=== PATIENT | female | born 1980 | race Caucasian/White ===

== ENCOUNTER 2016-11-27 23:27 | Inpatient (IN) | payer OTHER ==
[~2016-11-27] VITALS: Ht 160 cm; Wt 53.7 kg
[2016-11-28] VITALS (12 sets, daily range): BP systolic 96–118; BP diastolic 45–67; PULSE 62–76; RESP 12–24; Ht 160 cm; Wt 53.7 kg
[2016-11-28 03:55] LABS: ADD UMIC NO; URINE BILIRUBIN (Dip) 2+ (NEGATIVE); URINE BLOOD (Dip) NEGATIVE (NEGATIVE); URINE COLOR DK. YELLOW (YELLOW); URINE GLUCOSE (Dip) NEGATIVE (NEGATIVE); URINE KETONES (Dip) TRACE (NEGATIVE); URINE LEUKOCYTE ESTERASE (Dip) NEGATIVE (NEGATIVE); URINE NITRITE (Dip) NEGATIVE (NEGATIVE); URINE TOTAL PROTEIN (Dip) NEGATIVE (NEGATIVE); URINE UROBILINOGEN (Dip) 4.0 E.U./dL (0.1-1.0)
[2016-11-28 03:59] LABS: ICTOTEST POSITIVE (NEGATIVE)
[2016-11-28 04:11] LABS: BENZODIAZEPINES Negative (NEGATIVE)
[2016-11-28 04:13] LABS: BARBITURATES Negative (NEGATIVE); CANNABINOIDS Negative (NEGATIVE)
[2016-11-28 04:14] LABS: COCAINE Negative (NEGATIVE)
[2016-11-28 04:22] LABS: OPIATES Positive (NEGATIVE)
[2016-11-28] MEDS ORDERED: PANTOPRAZOLE 40 MG INJ IV SCH (06:00)
[2016-11-28 06:48] LABS: HEMOGLOBIN 7.6 g/dl (12.0-16.0); MEAN CORPUSCULAR HEMOGLOBIN 32.7 pg (29.0-33.0); MEAN CORPUSCULAR HGB CONC 34.5 g/dl (32.0-37.0); MEAN CORPUSCULAR VOLUME 94.7 fl (82.0-101.0); MEAN PLATELET VOLUME 9.1 fl (7.4-10.4); PLATELET COUNT 111 10^3/UL (140-440); RED BLOOD COUNT 2.32 10^6/ul (4.20-5.40); RED CELL DISTRIBUTION WIDTH 26.7 % (11.5-14.5); UNCORRECTED WBC 6.1 10^3/ul (4.8-10.8); WHITE BLOOD COUNT 6.1 10^3/ul (4.8-10.8)
[2016-11-28 06:50] LABS: CONDITION 1; LH ANALYZER COMMENTS 1; SUSPECT 1
[2016-11-28 07:01] LABS: INR 1.65; PROTIME 19.6 Sec (12.2-14.2); PT RATIO 1.5
[2016-11-28 07:03] LABS: ALBUMIN 2.6 g/dl (3.3-4.9); CHLORIDE 111 mmol/L (97-110); PARTIAL THROMBOPLASTIN TIME 49.6 Sec (25.0-35.0); POTASSIUM 3.6 mmol/L (3.5-5.1); SODIUM 149 mmol/L (135-144)
[2016-11-28 07:05] LABS: BILIRUBIN,INDIRECT 0.8 mg/dl (0-1.1); BILIRUBIN,TOTAL 0.8 mg/dl (0.2-1.3); CREATININE 0.42 mg/dl (0.44-1.00)
[2016-11-28 07:06] LABS: ALANINE AMINOTRANSFERASE 40 IU/L (13-69); ALBUMIN/GLOBULIN RATIO 0.61; ALKALINE PHOSPHATASE 145 IU/L (42-121); ANION GAP 17 (8-16); ASPARTATE AMINO TRANSFERASE 181 IU/L (15-46); BLOOD UREA NITROGEN 5 mg/dl (7-20); CALCIUM 7.7 mg/dl (8.4-10.2); CARBON DIOXIDE 25 mmol/L (21-31); GLUCOSE 78 mg/dl (70-220); TOTAL PROTEIN 6.8 g/dl (6.1-8.1)
[2016-11-28 07:07] LABS: MAGNESIUM 1.6 mg/dl (1.7-2.5)
[2016-11-28] MEDS ORDERED: HYDROCODONE/APAP (5/325) TAB PO PRN (07:30)
[2016-11-28] MEDS: CHLORDIAZEPOXIDE 25 MG CAP PO SCH ×3 (08:25→20:39)
[2016-11-28] MEDS: DOCUSATE SODIUM 250 MG CAP PO SCH (08:25)
[2016-11-28] MEDS: MULTIVITAMINS 10 ML, THIAMINE 100 MG, FOLIC ACID 1 MG in SOD CHLORIDE 0.9% 1,000 ML IVPB SCH (08:25)
[2016-11-28] MEDS: PROPRANOLOL 10 MG TAB PO SCH ×3 (08:27→20:41)
[2016-11-28] MEDS: DEXTROSE 5%-0.45% NACL 1,000 ML IV SCH ×2 (08:30→16:30)
[2016-11-28 09:25] LABS: BASOPHIL # 0.1 10^3/ul (0.0-0.1); EOSINOPHILS # 0.2 10^3/ul (0.0-0.5); LYMPHOCYTES # 2.9 10^3/ul (0.8-2.9); MONOCYTE # 0.1 10^3/ul (0.3-0.9); NEUTROPHIL # 2.6 10^3/ul (1.6-7.5)
--- NOTE | 2016-11-28 10:23 | CONS ---
Date/Time of Note Date/Time of Note DATE: 11/28/16 TIME: 10:21 Assessment/Plan Assessment/Plan Additional Assessment/Plan Epigastric pain * Abdominal ultrasound History of esophageal varices * Order EGD medical records from [facility] Anemia * Monitor hemoglobin every 6 hours, transfuse 2 units for hemoglobin less than 7.5 * PPI drip * EGD with Dr. Salazar today in the afternoon. Patient advised of risk/benefits/ alternatives to procedure and she is agreeable to proceed Transaminitis * Elevated AST likely secondary to alcohol consent * Acute hepatitis panel negative History of alcohol abuse * Encourage abstinence Further recommendations depend on clinical course Patient seen in collaboration with Dr. Salazar Consultation Date/Type/Reason Admit Date/Time Nov 28, 2016 at 00:26 Reason for Consultation Hemoptysis Hx of Present Illness 36-year-old female patient was recently transferred from [facility] after she presented to the ED with complaints of abdominal pain and vomiting blood. Patient states symptoms have been present for 1 day and reports worsening epigastric abdominal pain. She denies fever, chills, and diarrhea Pt states that she had previous episode and was treated in [facility] in early October. Pt reports EGD with one cauterized varix. Pt reports being symptom free up until this point. Pt was discharged with unknown home medications that she continues to take and instructions to follow up with PCP. Pt reports drinking a few glasses of wine per week which is less than her previous daily intake. Past Medical History Medical History: no pertinent history Past Surgical History Past Surgical Hx: no surgical history Social History Alcohol Use: occasionally Smoking Status: Current some day smoker Exam/Review of Systems Vital Signs Vitals Vital Signs Date Time Temp Pulse Resp B/P Pulse Ox O2 Delivery O2 Flow Rate FiO2 11/28/16 07:54 98.5 78 16 96/55 97 Intake and Output 11/27/16 11/27/16 11/28/16 15:00 23:00 07:00 Output Total 50 ml Balance -50 ml Exam Constitutional: alert, oriented Psych: nl mood/affect Head: normocephalic Eyes: EOMI, nl conjunctiva, nl lids ENMT: nl external ears & nose, nl lips & teeth, nl nasal mucosa & septum Respiratory: normal air movement Cardiovascular: regular rate and rhythm Gastrointestinal: soft, tender (Epic) Musculoskeletal: nl extremities to inspection Neurological: POLICE CADET II-XII intact Results Result Diagram: 11/28/16 0530 11/28/16 0530 Results 24 hrs Laboratory Tests Test 11/28/16 02:20 11/28/16 05:30 Urine Amphetamines Screen Negative Urine Barbiturates Negative Urine Benzodiazepines Screen Negative Urine Bilirubin 2+ H Urine Cannabinoids Negative Urine Clarity CLEAR Urine Cocaine Screen Negative Urine Color DK. YELLOW Urine Glucose NEGATIVE Urine Hemoglobin NEGATIVE Urine Ictotest POSITIVE Urine Ketones TRACE H Urine Leukocyte Esterase NEGATIVE Urine Nitrite NEGATIVE Urine Opiates Screen Positive Urine Specific [place] >=1.030 H Urine Total Protein NEGATIVE Urine Urobilinogen 4.0 E.U./dL H Urine pH 5.5 Activated Partial Thromboplast Time 49.6 H Alanine Aminotransferase (ALT/SGPT) 40 Albumin 2.6 L Albumin/Globulin Ratio 0.61 Alkaline Phosphatase 145 H Anion Gap 17 H Aspartate Amino Transf (AST/SGOT) 181 H Basophils # 0.1 Basophils % 1.0 Blood Morphology Comment Blood Urea Nitrogen 5 L Calcium Level 7.7 L Carbon Dioxide Level 25 Chloride Level 111 H Creatinine 0.42 L Direct Bilirubin 0.00 Eosinophils # 0.2 Eosinophils % 3.0 Globulin 4.20 H Glucose Level 78 Hematocrit 22.0 #L Hemoglobin 7.6 L Hepatitis B Surface Antibody NEGATIVE Hepatitis B Surface Antigen NEGATIVE Hepatitis C Antibody NEGATIVE INR International Normalized Ratio 1.65 Indirect Bilirubin 0.8 Lipase 14 L Lymphocytes # 2.9 Lymphocytes % 47.0 Magnesium Level 1.6 L Mean Corpuscular Hemoglobin 32.7 Mean Corpuscular Hemoglobin Concent 34.5 Mean Corpuscular Volume 94.7 Mean Platelet Volume 9.1 Monocytes # 0.1 L Monocytes % 1.0 Neutrophils # 2.6 Neutrophils % 43.0 Nucleated Red Blood Cells # Nucleated Red Blood Cells % 0.0 Platelet Count 111 #L Potassium Level 3.6 Prothrombin Time 19.6 H Prothrombin Time Ratio 1.5 Red Blood Count 2.32 L Red Cell Distribution Width 26.7 #H Sodium Level 149 H Total Bilirubin 0.8 Total Protein 6.8 White Blood Count 6.1 # Medications Medications Current Medications Multivitamins/ Thiamine HCl/ Folic Acid/Sodium Chloride (Mvi-12 Adult/ Vitamin B1/Folic Acid/NS) 1,011.2 ml @ 125 mls/ hr DAILY@09 IVPB Last administered on 11/28/16 08:25; Admin Dose 125 MLS/HR; Start 11/28/16 at 09:00 Pantoprazole (Protonix Iv) 40 mg DAILY@06 IV Last administered on 11/28/16 06: 09; Admin Dose 40 MG; Start 11/28/16 at 06:00 Propranolol HCl (Inderal) 10 mg TID PO ; Start 11/28/16 at 09:00 Chlordiazepoxide (Librium) 25 mg TID PO Last administered on 11/28/16 08:25; Admin Dose 25 MG; Start 11/28/16 at 09:00 Morphine Sulfate (morphine) 2 mg Q4H PRN IV pain; Start 11/28/16 at 07:30 Acetaminophen/ Hydrocodone Bitart ([place] (5/325)) 1 tab Q6H PRN PO pain; Start 11/28/16 at 07:30 Docusate Sodium 250 mg 250 mg DAILY PO Last administered on 11/28/16 08:25; Admin Dose 250 MG; Start 11/28/16 at 09:00 Dextrose/Sodium Chloride (D5-1/2ns) 1,000 ml @ 125 mls/hr Q8H IV ; Start at 08:30 JAMESON CARCAMO Nov 28, 2016 10:22
--- NOTE | 2016-11-28 10:32 | HP ---
DATE OF ADMISSION: 11/28/2016 PRESENTING COMPLAINT: Vomiting with blood. HISTORY OF PRESENTING COMPLAINT: Ms. Lamb is a 36-year-old female, known alcoholic, who presents to us today after she had been drinking and she developed vomiting and had seen some blood in her vo nidia. She was also having epigastric abdominal pain. The patient was recently admitted at [facility] in October and underwent an EGD there, where it seems like they found some esophageal sharda ices that were clipped and cauterized and that she was scheduled for a followup outpatient appointme nt yesterday; however, she could not go to the appointment because she developed severe epigastric a bdominal pain and vomiting. She admits to drinking only a glass of wine. However, her serum alcoho l level was elevated. She went to the emergency room at [facility] where she was found to be mildly an emic and because of her history, decision was made to admit her for GI review and as she was capitat ed to this facility, she was transferred to us here. At this time she is more comfortable, and she s ays the pain is slightly better, but she is requesting medication for pain. She does not know if macho carroll had an ulcer on the evaluation done at [place]. We have requested records and they are still pe nding at this time. PAST MEDICAL HISTORY: Chronic alcohol abuse, history of pancreatitis as well as esophageal varices and a chronic megaloblastic anemia. PAST SURGICAL HISTORY: She has had a cholecystectomy and a x3. ALLERGIES: NO KNOWN DRUG ALLERGIES. SOCIAL HISTORY: The patient is a chronic alcoholic. She also smokes tobacco and marijuana. She is , however, trying to quit. REVIEW OF SYSTEMS: A 12-point review of system was done. She has had no fever, no chest pain and n o black stools. No dysuria, no hematuria. HOME MEDICATIONS: None. PHYSICAL EXAMINATION VITAL SIGNS: Temperature 99.1, pulse 101, respirations 18, blood pressure 105/55, saturations 95% o n room air. GENERAL: The patient was alert, oriented, in no distress. HEENT: Head is normocephalic. There was scleral jaundice. Pupils are equal and reactive. There w as mild conjunctival pallor. Mucous membranes are moist. Posterior pharynx is clear of exudate. NECK: Supple. CHEST: Clear with good air entry on both sides. CARDIOVASCULAR: S1 and 2, no murmurs. She was tachycardic, however. ABDOMEN: Full, but not tympanic and not severely ascitic, soft, mildly tender in the epigastric are a. Right upper quadrant was unremarkable with normoactive bowel sounds in 4 quadrants. EXTREMITIES: Lower extremity was negative for edema. SKIN: Without rash or jaundice. PSYCHIATRIC: She was cooperative with exam. LABORATORY VALUES: I reviewed lab work from [facility]. We do not have lab work here and alcohol level was elevated. Her lipid levels were normal she has mild anemia with hemoglobin of 8.4. We do not k now what her hemoglobin was when she was discharged from [facility]. ASSESSMENT: A 36-year-old female, known alcoholic, who presented with vomiting and 1 episode of fin ding blood in her vomit with the followin. Report an upper gastrointestinal bleed. 2. Known esophageal varices status post recent cautery and clipping. 3. Chronic alcoholism. 4. Chronic megaloblastic anemia. 5. Multi-substance abuse (alcohol, tobacco and marijuana). 6. Epigastric abdominal pain. Rule out alcoholic pancreatitis. 7. Transaminitis, which could be chronic from impending alcoholic cirrhosis versus an acute alcohol ic hepatitis. 8. Hyperbilirubinemia, consistent with alcoholic cirrhosis. PLAN OF CARE: At this time is to keep patient n.p.o., continue IV fluid hydration. Get a GI consult . Put her on IV PPI therapy. Obtain records from [facility]. Further interventions will depend on our findings and how she responds to this as well as GI recomme ndations. Prophylaxis: She will be on SCDs and PPI. Dictated By: CARTER CARBONE MD, BA/NTS Conf#: [id number] DID#: [id number]
[2016-11-28] MEDS ORDERED: SOD CHLORIDE 0.9% 250 ML IV* ONE (10:45)
[2016-11-28] MEDS ORDERED: PANTOPRAZOLE IV 80 MG in SOD CHLORIDE 0.9% 100 ML IV SCH (11:00)
[2016-11-28] MEDS: morphine 2 MG INJ IV PRN ×3 (12:23→20:40)
--- NOTE | 2016-11-28 16:54 | PN ---
Date/Time of Note Date/Time of Note DATE: 11/28/16 TIME: 16:48 Assessment/Plan VTE Prophylaxis VTE Prophylaxis Intervention: SCD's Lines/Catheters IV Catheter Type (from Nrsg): Peripheral IV Urinary Cath still in place: No Assessment/Plan Assessment/Plan 1. Upper GI bleeding, EGD today, on PPI 2. Epigastric pain, protonix, EGD 3. Alcoholic liver disease, liver cirrhosis 4. Esophageal varices, EGD 5. Normocytic anemia, GI bleeding and alcohol related, follow up with CBC 6. Thrombocytopenia, splenomegaly related 7. Hypomagnesemia, Mg Subjective 24 Hr Interval Summary Free Text/Dictation still has epigastric abdominal pain Exam/Review of Systems Vital Signs Vitals Vital Signs Date Time Temp Pulse Resp B/P Pulse Ox O2 Delivery O2 Flow Rate FiO2 11/28/16 07:54 98.5 78 16 96/55 97 Intake and Output 11/27/16 11/27/16 11/28/16 15:00 23:00 07:00 Output Total 50 ml Balance -50 ml Exam Constitutional: alert, oriented, well developed Psych: nl mood/affect, no complaints Head: atraumatic, normocephalic Eyes: EOMI, nl conjunctiva, nl lids ENMT: nl external ears & nose, nl lips & teeth, nl nasal mucosa & septum Neck: non-tender, supple Respiratory: clear to auscultation, normal air movement, other, No congested cough, No crackles/rales, No diminished breath sounds, No intercostal retraction, No labored breathing, No respirations, No tactile fremitus, No wheezing Cardiovascular: nl pulses, regular rate and rhythm, No S3, No S4, No bruits, No diastolic murmur, No edema, No gallop, No irregular rhythm, No jugular venous distention (JVD), No murmurs/extra sounds, No other, No rub, No systolic murmur Gastrointestinal: distended, soft, tender (epigastric) Musculoskeletal: nl extremities to inspection Neurological: MANAGER NIGHT II-XII intact, nl mental status, nl speech, nl strength Skin: nl turgor Results Result Diagram: 11/28/1630 11/28/16 0530 Results 24 hrs Laboratory Tests Test 11/28/16 02:20 11/28/16 05:30 Urine Amphetamines Screen Negative Urine Barbiturates Negative Urine Benzodiazepines Screen Negative Urine Bilirubin 2+ H Urine Cannabinoids Negative Urine Clarity CLEAR Urine Cocaine Screen Negative Urine Color DK. YELLOW Urine Glucose NEGATIVE Urine Hemoglobin NEGATIVE Urine Ictotest POSITIVE Urine Ketones TRACE H Urine Leukocyte Esterase NEGATIVE Urine Nitrite NEGATIVE Urine Opiates Screen Positive Urine Specific [place] >=1.030 H Urine Total Protein NEGATIVE Urine Urobilinogen 4.0 E.U./dL H Urine pH 5.5 Activated Partial Thromboplast Time 49.6 H Alanine Aminotransferase (ALT/SGPT) 40 Albumin 2.6 L Albumin/Globulin Ratio 0.61 Alkaline Phosphatase 145 H Anion Gap 17 H Aspartate Amino Transf (AST/SGOT) 181 H Basophils # 0.1 Basophils % 1.0 Blood Morphology Comment Blood Urea Nitrogen 5 L Calcium Level 7.7 L Carbon Dioxide Level 25 Chloride Level 111 H Creatinine 0.42 L Direct Bilirubin 0.00 Eosinophils # 0.2 Eosinophils % 3.0 Globulin 4.20 H Glucose Level 78 Hematocrit 22.0 #L Hemoglobin 7.6 L Hepatitis B Surface Antibody NEGATIVE Hepatitis B Surface Antigen NEGATIVE Hepatitis C Antibody NEGATIVE INR International Normalized Ratio 1.65 Indirect Bilirubin 0.8 Lipase 14 L Lymphocytes # 2.9 Lymphocytes % 47.0 Magnesium Level 1.6 L Mean Corpuscular Hemoglobin 32.7 Mean Corpuscular Hemoglobin Concent 34.5 Mean Corpuscular Volume 94.7 Mean Platelet Volume 9.1 Monocytes # 0.1 L Monocytes % 1.0 Neutrophils # 2.6 Neutrophils % 43.0 Nucleated Red Blood Cells # Nucleated Red Blood Cells % 0.0 Platelet Count 111 #L Potassium Level 3.6 Prothrombin Time 19.6 H Prothrombin Time Ratio 1.5 Red Blood Count 2.32 L Red Cell Distribution Width 26.7 #H Sodium Level 149 H Total Bilirubin 0.8 Total Protein 6.8 White Blood Count 6.1 # Medications Medications Current Medications Multivitamins/ Thiamine HCl/ Folic Acid/Sodium Chloride (Mvi-12 Adult/ Vitamin B1/Folic Acid/NS) 1,011.2 ml @ 125 mls/ hr DAILY@09 IVPB Last administered on 11/28/16 08:25; Admin Dose 125 MLS/HR; Start 11/28/16 at 09:00 Pantoprazole (Protonix Iv) 40 mg DAILY@06 IV Last administered on 11/28/16 06: 09; Admin Dose 40 MG; Start 11/28/16 at 06:00 Propranolol HCl (Inderal) 10 mg TID PO ; Start 11/28/16 at 09:00 Chlordiazepoxide (Librium) 25 mg TID PO Last administered on 11/28/16 12:22; Admin Dose 25 MG; Start 11/28/16 at 09:00 Morphine Sulfate (morphine) 2 mg Q4H PRN IV pain Last administered on 11/28/16 16:28; Admin Dose 2 MG; Start 11/28/16 at 07:30 Acetaminophen/ Hydrocodone Bitart ([place] (5/325)) 1 tab Q6H PRN PO pain; Start 11/28/16 at 07:30 Docusate Sodium 250 mg 250 mg DAILY PO Last administered on 11/28/16 08:25; Admin Dose 250 MG; Start 11/28/16 at 09:00 Dextrose/Sodium Chloride 1,000 ml @ 125 mls/hr Q8H IV ; Start 11/28/16 at 08:30 Pantoprazole/ Sodium Chloride (Protonix Iv/NS) 100 ml @ 10 mls/hr Q10H IV Last administered on 11/28/16 12:23; Admin Dose 10 MLS/HR; Start 11/28/16 at 11: 00 JAE DAS MD Nov 28, 2016 16:53
[2016-11-28] MEDS ORDERED: MIDAZOLAM 1 MG/ML 2 ML INJ ONE (17:50)
[2016-11-28] MEDS ORDERED: FENTAnyl 50 MCG/ML VIAL ONE (17:50)
[2016-11-28] MEDS ORDERED: PROPOFOL 20 ML ONE (17:50)
[2016-11-28] MEDS ORDERED: MAGNESIUM SULFATE 3 GM in SOD CHLORIDE 0.9% 100 ML IVPB SCH (18:30)
[2016-11-28] MEDS: METOCLOPRAMIDE 10 MG INJ IV SCH (18:54)
--- NOTE | 2016-11-28 22:03 | GILP ---
DATE OF PROCEDURE: 11/28/2016 NAME OF PROCEDURE: Esophagogastroduodenoscopy with biopsies. SURGEON: Juan Salazar MD HISTORY AND INDICATIONS: The patient with previous history of gastrointestinal bleeding described a s variceal in October. The patient is hospitalized with several episodes of coffee-ground emesis. PREMEDICATION: Monitored anesthesia care by anesthesiologist. INSTRUMENT USED: Olympus panendoscope. TECHNIQUE: After informed consent, with the patient/relatives understanding the procedure, its iona cations, potential risks and complications, including but not limited to: allergic reaction, bleedin g, perforation or infection, and after all pertinent questions were answered to the patients satisfa ction, the patient/relatives signed witnessed informed consent. Following this, premedication was administered slowly IV push under careful cardiovascular and respi ratory monitoring with pulse oximetry, automatic blood pressure and environmental monitoring specialist. Once the sedative effect was achieved the patient was place in the left lateral decubitus, the panen doscope was introduced and advanced under visual control. Careful examination of the upper gastrointestinal tract both on insertion as well as withdrawal of t he instrument disclosed the following findings: ESOPHAGUS: The distal esophagus shows small grade I/IV esophageal varices with no stigmata of recen t bleeding. The distal esophagus shows erythema and edema of the mucosa of a moderate degree. Again, no stigmata of recent bleeding is noted. STOMACH: Upon entrance to the stomach, air was insufflated. The gastric flor distended normally. There is erythema and edema of the mucosa with significant congestion and friability to the touch. Biopsies were obtained to rule out H. pylori infection. PYLORUS: The pylorus appears patent and within normal limits with no evidence of gastric outlet obs truction. DUODENUM: The duodenal mucosa was carefully examined in the duodenal bulb as well as the second por tion of the duodenum and appears unremarkable with no evidence of duodenitis, ulcer or neoplasm. The instrument was then withdrawn. The patient tolerated the procedure well and was transferred out of the endoscopy suite awake and in good condition to continue recovery under observation IMPRESSION: 1. Grade I/IV esophageal varices of no clinical significance. 2. Distal esophagitis, moderate. 3. Hemorrhagic alcoholic gastritis. Rule out Helicobacter pylori infection. Biopsies obtained. PLAN: The patient will be treated with PPI b.i.d. Pathology will be reviewed as soon as available. Abstinence will be critical to the patient's well-being. Dictated By: JUAN SALAZAR MS/OLINDA Conf#: [id number] DID#: [id number]
[2016-11-29] MEDS: METOCLOPRAMIDE 10 MG INJ IV SCH ×3 (00:10→12:06)
[2016-11-29] MEDS: DEXTROSE 5%-0.45% NACL 1,000 ML IV SCH ×2 (00:10→08:53)
[2016-11-29] MEDS: morphine 2 MG INJ IV PRN ×5 (01:01→17:51)
[2016-11-29] MEDS: DIPHENHYDRAMINE 25 MG CAP PO PRN ×2 (05:55→13:07)
[2016-11-29] MEDS ORDERED: PANTOPRAZOLE (EC) 40 MG TAB PO SCH (06:00)
[2016-11-29 06:35] LABS: POTASSIUM 3.7 mmol/L (3.5-5.1)
[2016-11-29 06:37] LABS: CREATININE 0.37 mg/dl (0.44-1.00)
[2016-11-29 06:38] LABS: CALCIUM 7.9 mg/dl (8.4-10.2)
[2016-11-29 06:39] LABS: MAGNESIUM 1.6 mg/dl (1.7-2.5)
[2016-11-29 07:02] LABS: ALBUMIN 2.5 g/dl (3.3-4.9); POTASSIUM 3.6 mmol/L (3.5-5.1)
[2016-11-29 07:04] LABS: CREATININE 0.38 mg/dl (0.44-1.00)
[2016-11-29 07:05] LABS: ALBUMIN/GLOBULIN RATIO 0.58; BILIRUBIN,DIRECT 0.3 mg/dl (0.00-0.20); BILIRUBIN,INDIRECT 2.1 mg/dl (0-1.1); BILIRUBIN,TOTAL 2.4 mg/dl (0.2-1.3); CALCIUM 7.8 mg/dl (8.4-10.2); TOTAL PROTEIN 6.8 g/dl (6.1-8.1)
[2016-11-29 07:13] LABS: HEMATOCRIT 24.5 % (37.0-47.0); HEMOGLOBIN 8.6 g/dl (12.0-16.0); MEAN CORPUSCULAR HEMOGLOBIN 33.3 pg (29.0-33.0); MEAN CORPUSCULAR HGB CONC 35.1 g/dl (32.0-37.0); MEAN CORPUSCULAR VOLUME 94.8 fl (82.0-101.0); MEAN PLATELET VOLUME 9.4 fl (7.4-10.4); PLATELET COUNT 82 10^3/UL (140-440); RED BLOOD COUNT 2.59 10^6/ul (4.20-5.40); RED CELL DISTRIBUTION WIDTH 23.8 % (11.5-14.5)
[2016-11-29 07:24] LABS: CONDITION 1; LH ANALYZER COMMENTS 1; SUSPECT 1
[2016-11-29 07:30] VITALS: BP 99/53; RESP 16
[2016-11-29] MEDS: CHLORDIAZEPOXIDE 25 MG CAP PO SCH ×2 (08:53→12:06)
[2016-11-29] MEDS: MULTIVITAMINS 10 ML, THIAMINE 100 MG, FOLIC ACID 1 MG in SOD CHLORIDE 0.9% 1,000 ML IVPB SCH (08:53)
[2016-11-29] MEDS: DOCUSATE SODIUM 250 MG CAP PO SCH (08:53)
[2016-11-29] MEDS: PROPRANOLOL 10 MG TAB PO SCH ×2 (08:53→12:03)
--- NOTE | 2016-11-29 08:57 | CONS ---
Date/Time of Note Date/Time of Note DATE: 11/29/16 TIME: 08:57 Assessment/Plan Assessment/Plan Chief Complaint/Hosp Course 36-year-old female patient was recently transferred from [facility] after she presented to the ED with complaints of abdominal pain and vomiting blood. Patient states symptoms have been present for 1 day and reports worsening epigastric abdominal pain. She denies fever, chills, and diarrhea Pt states that she had previous episode and was treated in [facility] in early October. Pt reports EGD with one cauterized varix. Pt reports being symptom free up until this point. Pt was discharged with unknown home medications that she continues to take and instructions to follow up with PCP. Pt reports drinking a few glasses of wine per week which is less than her previous daily intake. Problems: Additional Assessment/Plan Epigastric pain, improving History of esophageal varices * Order EGD medical records from [facility] Anemia * Monitor hemoglobin every 6 hours, transfuse 2 units for hemoglobin less than 7.5 * PPI drip * EGD 11-28-16: 1. Grade I/IV esophageal varices of no clinical significance. 2. Distal esophagitis, moderate. 3. Hemorrhagic alcoholic gastritis Transaminitis * Elevated AST likely secondary to alcohol consent * Acute hepatitis panel negative History of alcohol abuse * Encourage abstinence Further recommendations depend on clinical course Patient seen in collaboration with Dr. Salazar Consultation Date/Type/Reason Admit Date/Time Nov 28, 2016 at 00:26 Initial Consult Date Type of Consultation: GI 24 HR Interval Summary Free Text/Dictation Tolerating clear diet Advised patient of test results Advance diet to regular Patient stable from GI standpoint Exam/Review of Systems Vital Signs Vitals Vital Signs Date Time Temp Pulse Resp B/P Pulse Ox O2 Delivery O2 Flow Rate FiO2 11/29/16 07:30 98.8 82 16 99/53 95 11/28/16 18:47 Room Air Intake and Output 11/28/16 11/28/16 11/29/16 15:00 23:00 07:00 Intake Total 1000 ml 1467.2 ml Output Total 1000 ml 1200 ml Balance 0 ml 267.2 ml Exam Constitutional: alert, oriented Psych: nl mood/affect Head: normocephalic Eyes: EOMI, nl conjunctiva, nl lids ENMT: nl external ears & nose, nl lips & teeth, nl nasal mucosa & septum Respiratory: normal air movement Cardiovascular: regular rate and rhythm Gastrointestinal: soft, non tender Musculoskeletal: nl extremities to inspection Neurological: WELDER MANUFACTURE II-XII intact Results Result Diagram: 11/29/1620 11/29/16 0520 Results 24 hrs Laboratory Tests Test 11/29/16 05:20 Alanine Aminotransferase (ALT/SGPT) 35 Albumin 2.5 L Albumin/Globulin Ratio 0.58 Alkaline Phosphatase 122 H Anion Gap 14 Aspartate Amino Transf (AST/SGOT) 140 H Basophils # Basophils % Blood Morphology Comment Blood Urea Nitrogen 3 L Calcium Level 7.9 L Carbon Dioxide Level 23 Chloride Level 107 Creatinine 0.37 L Direct Bilirubin 0.30 #H Eosinophils # Eosinophils % Globulin 4.30 H Glucose Level 74 Hematocrit 24.5 L Hemoglobin 8.6 L Indirect Bilirubin 2.1 H Lymphocytes # Lymphocytes % Magnesium Level 1.6 L Mean Corpuscular Hemoglobin 33.3 H Mean Corpuscular Hemoglobin Concent 35.1 Mean Corpuscular Volume 94.8 Mean Platelet Volume 9.4 Monocytes # Monocytes % Neutrophils # Neutrophils % Nucleated Red Blood Cells # Nucleated Red Blood Cells % Platelet Count 82 #L Potassium Level 3.7 Red Blood Count 2.59 L Red Cell Distribution Width 23.8 H Sodium Level 140 Total Bilirubin 2.4 H Total Protein 6.8 White Blood Count 5.0 Medications Medications Current Medications Multivitamins/ Thiamine HCl/ Folic Acid/Sodium Chloride (Mvi-12 Adult/ Vitamin B1/Folic Acid/NS) 1,011.2 ml @ 125 mls/ hr DAILY@09 IVPB Last administered on 11/29/16 08:53; Admin Dose 125 MLS/HR; Start 11/28/16 at 09:00 Propranolol HCl (Inderal) 10 mg TID PO ; Start 11/28/16 at 09:00 Chlordiazepoxide (Librium) 25 mg TID PO Last administered on 11/29/16 08:53; Admin Dose 25 MG; Start 11/28/16 at 09:00 Morphine Sulfate (morphine) 2 mg Q4H PRN IV pain Last administered on 11/29/16 08:54; Admin Dose 2 MG; Start 11/28/16 at 07:30 Acetaminophen/ Hydrocodone Bitart ([place] (5/325)) 1 tab Q6H PRN PO pain; Start 11/28/16 at 07:30 Docusate Sodium 250 mg 250 mg DAILY PO Last administered on 11/29/16 08:53; Admin Dose 250 MG; Start 11/28/16 at 09:00 Dextrose/Sodium Chloride (D5-1/2ns) 1,000 ml @ 125 mls/hr Q8H IV Last administered on 11/29/16 08:53; Admin Dose 125 MLS/HR; Start 11/28/16 at 08:30 Pantoprazole (Protonix Tab) 40 mg BID@06,18 PO Last administered on 11/29/16 05 :55; Admin Dose 40 MG; Start 11/29/16 at 06:00 Metoclopramide HCl (Reglan) 10 mg Q6 IV Last administered on 11/29/16 05:55; Admin Dose 10 MG; Start 11/28/16 at 18:30 Diphenhydramine HCl (Benadryl) 25 mg Q6H PRN PO ITCHING Last administered on 05:55; Admin Dose 25 MG; Start 11/29/16 at 05:30 JAMESON CARCAMO Nov 29, 2016 08:57
[2016-11-29 10:44] LABS: EOSINOPHILS # 0.1 10^3/ul (0.0-0.5); LYMPHOCYTES # 1.5 10^3/ul (0.8-2.9); MONOCYTE # 0.2 10^3/ul (0.3-0.9); NEUTROPHIL # 3.1 10^3/ul (1.6-7.5)
[2016-11-29] MEDS ORDERED: PANT40TA3 PO (14:10)
[2016-11-29] MEDS ORDERED: FER325 PO (14:18)
--- NOTE | 2016-11-29 14:18 | DS ---
Date/Time of Note Date/Time of Note DATE: 11/29/16 TIME: 14:11 Discharge Summary Admission/Discharge Info Admit Date/Time Nov 28, 2016 at 00:26 Discharge Date/Time Final Diagnosis 1. Upper GI bleeding, from gastritis, protonix bid, follow up with Dr. Salazar 2. Alcoholic liver disease, liver cirrhosis, quit ETOH 3. Esophageal varices, EGD 4. Normocytic anemia, GI bleeding and alcohol related, iron supplement, follow up with PCP 6. Thrombocytopenia, splenomegaly related 7. Hypomagnesemia, Mg given Patient Condition: Stable Hospital Course 36-year-old female patient was recently transferred from [facility] after she presented to the ED with complaints of abdominal pain and vomiting blood. Patient states symptoms have been present for 1 day and reports worsening epigastric abdominal pain. She denies fever, chills, and diarrhea Pt states that she had previous episode and was treated in [facility] in early October. Pt reports EGD with one cauterized varix. Pt reports being symptom free up until this point. Pt was discharged with unknown home medications that she continues to take and instructions to follow up with PCP. Pt reports drinking a few glasses of wine per week which is less than her previous daily intake. EGD revealed esophagitis and gastritis, along with esophageal varices. Patient is advised to quit drinking alcohol and take double dosage of protonix. H/H were 7.6/22 on admission, and they are 8.6/24.5 today. Patient will be on iron supplement. G.I. LAB PROCEDURE DATE OF PROCEDURE: 11/28/2016 NAME OF PROCEDURE: Esophagogastroduodenoscopy with biopsies. SURGEON: Juan Salazar MD HISTORY AND INDICATIONS: The patient with previous history of gastrointestinal bleeding described as variceal in October. The patient is hospitalized with several episodes of coffee-ground emesis. PREMEDICATION: Monitored anesthesia care by anesthesiologist. INSTRUMENT USED: Olympus panendoscope. TECHNIQUE: After informed consent, with the patient/relatives understanding the procedure, its indications, potential risks and complications, including but not limited to: allergic reaction, bleeding, perforation or infection, and after all pertinent questions were answered to the patients satisfaction, the patient/relatives signed witnessed informed consent. Following this, premedication was administered slowly IV push under careful cardiovascular and respiratory monitoring with pulse oximetry, automatic blood pressure and laboratory monitor. Once the sedative effect was achieved the patient was place in the left lateral decubitus, the panendoscope was introduced and advanced under visual control. Careful examination of the upper gastrointestinal tract both on insertion as well as withdrawal of the instrument disclosed the following findings: ESOPHAGUS: The distal esophagus shows small grade I/IV esophageal varices with no stigmata of recent bleeding. The distal esophagus shows erythema and edema of the mucosa of a moderate degree. Again, no stigmata of recent bleeding is noted. STOMACH: Upon entrance to the stomach, air was insufflated. The gastric flor distended normally. There is erythema and edema of the mucosa with significant congestion and friability to the touch. Biopsies were obtained to rule out H. pylori infection. PYLORUS: The pylorus appears patent and within normal limits with no evidence of gastric outlet obstruction. DUODENUM: The duodenal mucosa was carefully examined in the duodenal bulb as well as the second portion of the duodenum and appears unremarkable with no evidence of duodenitis, ulcer or neoplasm. The instrument was then withdrawn. The patient tolerated the procedure well and was transferred out of the endoscopy suite awake and in good condition to continue recovery under observation IMPRESSION: 1. Grade I/IV esophageal varices of no clinical significance. 2. Distal esophagitis, moderate. 3. Hemorrhagic alcoholic gastritis. Rule out Helicobacter pylori infection. Biopsies obtained. PLAN: The patient will be treated with PPI b.i.d. Pathology will be reviewed as soon as available. Abstinence will be critical to the patient's well-being. Dictated By: JUAN SALAZAR MS/OLINDA Conf#: [id number] DID#: [id number] Home Meds Active Scripts Pantoprazole* (Protonix*) 40 Mg Tablet., 60 MG PO BID, #60 TAB Prov:JAE DAS MD 11/29/16 Follow-up Plan PCP one week Dr. Salazar in 2 weeks Pending Labs Laboratory Tests Test 11/29/16 05:20 Alanine Aminotransferase (ALT/SGPT) 35IU/L (13-69) Albumin 2.5g/dl (3.3-4.9) Albumin/Globulin Ratio 0.58 Alkaline Phosphatase 122IU/L (42-121) Anion Gap 14 (8-16) Aspartate Amino Transf (AST/SGOT) 140IU/L (15-46) Band Neutrophils % 3.0% (0.0-5.0) Basophils # 10^3/ul (0.0-0.1) Basophils % % (0.0-2.0) Blood Morphology Comment Blood Urea Nitrogen 3mg/dl (7-20) Calcium Level 7.9mg/dl (8.4-10.2) Carbon Dioxide Level 23mmol/L (21-31) Chloride Level 107mmol/L (97-110) Creatinine 0.37mg/dl (0.44-1.00) Direct Bilirubin 0.30mg/dl (0.00-0.20) Eosinophils # 0.110^3/ul (0.0-0.5) Eosinophils % 2.0% (0.0-7.0) Globulin 4.30g/dl (1.3-3.2) Glucose Level 74mg/dl (70-220) Hematocrit 24.5% (37.0-47.0) Hemoglobin 8.6g/dl (12.0-16.0) Indirect Bilirubin 2.1mg/dl (0-1.1) Lymphocytes # 1.510^3/ul (0.8-2.9) Lymphocytes % 29.0% (15.0-51.0) Magnesium Level 1.6mg/dl (1.7-2.5) Mean Corpuscular Hemoglobin 33.3pg (29.0-33.0) Mean Corpuscular Hemoglobin Concent 35.1g/dl (32.0-37.0) Mean Corpuscular Volume 94.8fl (82.0-101.0) Mean Platelet Volume 9.4fl (7.4-10.4) Monocytes # 0.210^3/ul (0.3-0.9) Monocytes % 4.0% (0.0-11.0) Neutrophils # 3.110^3/ul (1.6-7.5) Neutrophils % 62.0% (39.0-77.0) Nucleated Red Blood Cells # 10^3/ul (0.0-0.0) Nucleated Red Blood Cells % /100WBC (0.0-0.0) Platelet Count 8210^3/UL (140-440) Potassium Level 3.7mmol/L (3.5-5.1) Red Blood Count 2.5910^6/ul (4.20-5.40) Red Cell Distribution Width 23.8% (11.5-14.5) Sodium Level 140mmol/L (135-144) Total Bilirubin 2.4mg/dl (0.2-1.3) Total Protein 6.8g/dl (6.1-8.1) White Blood Count 5.010^3/ul (4.8-10.8) JAE DAS MD Nov 29, 2016 14:18
[2016-11-29] MEDS ORDERED: MAGNESIUM SULFATE 4 GM/100 ML 100 ML IVPB ONE (14:30)
== END 2016-11-29 18:00 | disposition home or self-care (01) | DRG 379 ==
LOC: MS2 11-28 00:26
PROVIDERS: ADMIT Family Medicine; ATTEND Family Medicine
PROC: 0DB68ZX Excision of Stomach, Via Natural or Artificial Opening Endoscopic, Diagnostic (ICD-10-PCS; principal; 2016-11-28 19:00)
DX: K29.21 Alcoholic gastritis with bleeding (principal); D69.6 Thrombocytopenia, unspecified; K70.30 Alcoholic cirrhosis of liver without ascites; E83.42 Hypomagnesemia; D50.0 Iron deficiency anemia secondary to blood loss (chronic); F10.10 Alcohol abuse, uncomplicated; I85.10 Secondary esophageal varices without bleeding
CPT/HCPCS: 36430; 80048; 80053; 80307; 81003; 83690; 83735; 85025; 85610; 85730; 86706; 86803; 86850; 86900; 86901; 86920; 87340; 88305; 88312; C9113; J2250; J2270; J2765; J3010; J3411; J3475; J7030; J7040; J7042; P9016

== ENCOUNTER 2016-12-29 02:24 | Inpatient (IN) | payer OTHER ==
[2016-12-29] VITALS (21 sets, daily range): BP systolic 89–103; BP diastolic 44–64; PULSE 80–100; RESP 12–22; TEMP 98.5; Ht 160 cm; Wt 52.5 kg
[~2016-12-29] VITALS: Ht 160 cm; Wt 52.5 kg
[~2016-12-29 02:24] MED LIST: FER325 PO; PANT40TA3 PO
[2016-12-29 04:29] LABS: ADD SCAN DIFF NO
--- NOTE | 2016-12-29 04:33 | ERA ---
ER Documentation Chief Complaint Date/Time DATE: 12/29/16 TIME: 04:29 Chief Complaint blood in stools x 2 days, vomited blood x 2 days HPI The patient is a 36-year-old female, presenting to the ER because he has been vomiting dark red blood and having dark red stool for the last 2 days intermittently. She has similar symptoms previously and required blood transfusion. He was hospitalized recently in November 2016 for similar symptoms. She has been drinking. She denies any headache, neck pain, chest pain, dyspnea; she complains of vague and mild epigastric abdominal discomfort, denies dysuria, diarrhea, constipation. She denies smoking, drinks regularly, denies illicit Past medical history: History of GI bleed, alcoholic liver disease, history of esophageal varices, history of esophagitis and gastritis Past surgical history: She had multiple esophageal varices banding, ROS All systems reviewed and are negative except as per history of present illness. Medications Home Meds Active Scripts Ferrous Sulfate* (Ferrous Sulfate*) 325 Mg Tabec, 325 MG PO TID for 30 Days, TAB Prov:JAE DAS MD 11/29/16 Pantoprazole* (Protonix*) 40 Mg Tablet.dr, 60 MG PO BID, #60 TAB Prov:JAE DAS MD 11/29/16 Allergies Allergies: Coded Allergies: No Known Allergy (Unverified , 04/28/16) PMhx/Soc History of Surgery: Yes (EGD, X3) Anesthesia Reaction: No Hx Neurological Disorder: No Hx Respiratory Disorders: No Hx Cardiac Disorders: No Hx Psychiatric Problems: No Hx Miscellaneous Medical Probl: No Hx Alcohol Use: Yes (ETOH use,1 glass of wine 12/28/2016) Hx Substance Use: No Hx Tobacco Use: Yes (ex-smoker) Smoking Status: Former smoker Physical Exam Vitals Vital Signs Date Time Temp Pulse Resp B/P Pulse Ox O2 Delivery O2 Flow Rate FiO2 12/29/16 02:56 101 17 110/70 99 Room Air 12/29/16 02:28 98.9 120 20 118/67 98 Physical Exam Const: No acute distress. Head: Atraumatic. Eyes: Normal Conjunctiva. ENT: Normal External Ears, Nose and Mouth. Neck: Full range of motion. No meningismus. Resp: Clear to auscultation bilaterally. Cardio: Regular rate and rhythm, no murmurs. Abd: Soft, non distended, normal bowel sounds, moderate epigastric tenderness, no rigidity, rebound, CVA tenderness Skin: No petechiae or rashes. Back: No midline or flank tenderness. Ext: No cyanosis, or edema. Neur: Awake and alert. No focal deficit Psych: Normal Mood and Affect. Result Diagram: 12/29/16 0400 12/29/16 0400 Results 24 hrs Laboratory Tests Test 12/29/16 04:00 Alanine Aminotransferase (ALT/SGPT) 35IU/L Albumin 3.5g/dl Albumin/Globulin Ratio 0.74 Alkaline Phosphatase 145IU/L Anion Gap 21 Aspartate Amino Transf (AST/SGOT) 156IU/L Basophils # 0.010^3/ul Basophils % 0.2% Blood Urea Nitrogen 7mg/dl Calcium Level 7.9mg/dl Carbon Dioxide Level 27mmol/L Chloride Level 103mmol/L Creatinine 0.47mg/dl Direct Bilirubin 1.00mg/dl Eosinophils # 0.110^3/ul Eosinophils % 1.2% Ethyl Alcohol Level 419.0mg/dl Globulin 4.70g/dl Glucose Level 88mg/dl Hematocrit 26.4% Hemoglobin 8.9g/dl Indirect Bilirubin 1.5mg/dl Lipase < 10U/L Lymphocytes # 1.710^3/ul Lymphocytes % 33.7% Magnesium Level 1.6mg/dl Mean Corpuscular Hemoglobin 33.8pg Mean Corpuscular Hemoglobin Concent 33.7g/dl Mean Corpuscular Volume 100.4fl Mean Platelet Volume 11.3fl Monocytes # 0.410^3/ul Monocytes % 6.8% Neutrophils # 3.010^3/ul Neutrophils % 57.7% Nucleated Red Blood Cells # 0.010^3/ul Nucleated Red Blood Cells % 0.0/100WBC Platelet Count 3010^3/UL Platelet Estimate PLT APPEAR DECREASED Potassium Level 3.6mmol/L Red Blood Count 2.6310^6/ul Red Cell Distribution Width 17.2% Sodium Level 147mmol/L Total Bilirubin 2.5mg/dl Total Protein 8.2g/dl White Blood Count 5.110^3/ul Current Medications Medications (Trade) Dose Ordered Sig/Ramya Route PRN Reason Start Time Stop Time Status Last Admin Dose Admin Morphine Sulfate (morphine) 2 mg ONCE ONCE IV 12/29/16 05:00 12/29/16 05:01 DC Ondansetron HCl 4 mg 4 mg ONCE STAT IV 12/29/16 05:00 12/29/16 05:01 DC Sodium Chloride 1,000 ml @ 1,000 mls/hr Q1H ONCE IV 12/29/16 05:30 12/29/16 06:29 Sodium Chloride (NS) 1,000 ml @ 1,000 mls/hr Q1H ONCE IV 12/29/16 05:01 12/29/16 06:00 Morphine Sulfate (morphine) 2 mg ONCE ONCE IV 12/29/16 05:30 12/29/16 05:31 DC Ondansetron HCl (Zofran Inj) 4 mg ONCE ONCE IV 12/29/16 05:01 12/29/16 05:13 DC Lidocaine 1 applic 1 applic ONCE ONCE TOP 12/29/16 05:30 12/29/16 05:31 DC Magnesium Sulfate 50 ml @ 25 mls/hr ONCE ONCE IVPB 12/29/16 05:30 12/29/16 07:29 Potassium Chloride/Sodium Chloride (NS-KCl 20 Meq) 1,000 ml @ 100 mls/hr Q10H IV 12/29/16 05:45 UNV IV Flush (NS 3 ml) 3 ml PER PROTOCOL IV 12/29/16 06:00 UNV Lorazepam (Ativan) 0.5 mg Q8H PRN PO ANXIETY 12/29/16 06:00 UNV Ondansetron HCl (Zofran Tab) 4 mg Q6H PRN PO NAUSEA AND/OR VOMITING 12/29/16 06:00 UNV Famotidine (Pepcid Iv) 20 mg Q12 IV 12/29/16 09:00 UNV Procedures/MDM MEDICAL MAKING DECISION: The patient is a 36-year-old female, presenting with acute hematemesis and acute hematochezia, probable acute esophageal varices bleeding, acute hypomagnesemia, acute alcohol intoxication. she was treated with 2 L normal saline, morphine 2 mg IV for pain, Zofran 4 mg IV for nausea and magnesium sulfate 2 g IV. The differential diagnoses considered include but are not limited to gastritis, peptic ulcer disease, esophageal varices, Yennifer-Rosales tear. The differential diagnoses considered include but are not limited to carcinoma, polyp, hemorrhoid, fissure, diverticulosis, angiodysplasia. I have order for nasogastric tube that drained out about 200 cc of coffee- ground emesis , connected to low intermittent suction. Hemoccult is positive She is treated with Protonix 80 mg IV and Protonix drip, octreotide 50 g IV and octreotide drip Critical Care: Time: 35 minutes excluding all billable procedures. Treatments/Evaluations: Close monitoring and treatment of unstable vital signs, cardiorespiratory, and neurologic status, while maintaining tight balance of fluid, respiratory, and cardiac interventions. Departure Diagnosis: Primary Impression: Acute GI bleeding Additional Impressions: Acute alcohol intoxication Hypomagnesemia Thrombocytopenia Condition: Stable Comments I discussed the findings with the patient. I discussed the patient with the on- call hospitalist Dr. James who was made aware of the lab, the treatment, the patient condition. The patient is admitted to telemetry at 5:30 AM MAYA GARNETT MD Dec 29, 2016 04:33
[2016-12-29 04:34] LABS: ABNORMAL IP MESSAGE 1; BASOPHILS % 0.2 % (0.0-2.0); EOSINOPHILS # 0.1 10^3/ul (0.0-0.5); EOSINOPHILS % 1.2 % (0.0-7.0); HEMATOCRIT 26.4 % (37.0-47.0); HEMOGLOBIN 8.9 g/dl (12.0-16.0); LYMPHOCYTES # 1.7 10^3/ul (0.8-2.9); LYMPHOCYTES % 33.7 % (15.0-51.0); MEAN CORPUSCULAR HEMOGLOBIN 33.8 pg (29.0-33.0); MEAN CORPUSCULAR HGB CONC 33.7 g/dl (32.0-37.0); MEAN CORPUSCULAR VOLUME 100.4 fl (82.0-101.0); MEAN PLATELET VOLUME 11.3 fl (7.4-10.4); MONOCYTE # 0.4 10^3/ul (0.3-0.9); MONOCYTES % 6.8 % (0.0-11.0); NEUTROPHILS % 57.7 % (39.0-77.0); RED BLOOD COUNT 2.63 10^6/ul (4.20-5.40); RED CELL DISTRIBUTION WIDTH 17.2 % (11.5-14.5); WHITE BLOOD COUNT 5.1 10^3/ul (4.8-10.8)
[2016-12-29 04:43] LABS: ALBUMIN 3.5 g/dl (3.3-4.9)
[2016-12-29 04:44] LABS: CHLORIDE 103 mmol/L (97-110); POTASSIUM 3.6 mmol/L (3.5-5.1); SODIUM 147 mmol/L (135-144)
[2016-12-29 04:46] LABS: BILIRUBIN,INDIRECT 1.5 mg/dl (0-1.1); BILIRUBIN,TOTAL 2.5 mg/dl (0.2-1.3); CREATININE 0.47 mg/dl (0.44-1.00)
[2016-12-29 04:47] LABS: ALANINE AMINOTRANSFERASE 35 IU/L (13-69); ALBUMIN/GLOBULIN RATIO 0.74; ALKALINE PHOSPHATASE 145 IU/L (42-121); ANION GAP 21 (8-16); ASPARTATE AMINO TRANSFERASE 156 IU/L (15-46); BLOOD UREA NITROGEN 7 mg/dl (7-20); CALCIUM 7.9 mg/dl (8.4-10.2); CARBON DIOXIDE 27 mmol/L (21-31); GLUCOSE 88 mg/dl (70-220); TOTAL PROTEIN 8.2 g/dl (6.1-8.1)
[2016-12-29 04:48] LABS: MAGNESIUM 1.6 mg/dl (1.7-2.5)
[2016-12-29 04:52] LABS: PLATELET COUNT 30 10^3/UL (140-415)
[2016-12-29] MEDS ORDERED: morphine 2 MG INJ IV ONE ×2 (05:00→05:30)
[2016-12-29] MEDS ORDERED: ONDANSETRON 4 MG INJ IV STA (05:00)
[2016-12-29] MEDS ORDERED: ONDANSETRON 4 MG INJ IV ONE (05:01)
[2016-12-29] MEDS ORDERED: SOD CHLORIDE 0.9% 1,000 ML IV ONE ×2 (05:01→05:30)
[2016-12-29 05:11] LABS: PLATELET ESTIMATE PLT APPEAR DECREASED
--- NOTE | 2016-12-29 05:27 | HP ---
Date/Time of Note Date/Time of Note DATE: 12/29/16 TIME: 05:27 Assessment/Plan VTE Prophylaxis VTE Prophylaxis Intervention: contraindicated VTE Contraindication Reason: bleeding, thrombocytopenia Assessment/Plan Assessment/Plan 1) Acute GI bleeding - Admit to Tele - CONSULT: GI. Dr. Salazar notified. - Continue NPO - Continue NGT - Transfuse with FFP if we have it. (I did not find it in the orders.) 2) Thrombocytopenia - Transuse 1 unit of Platelets 3) Anemia - Transfuse 2 units pRBC, each over 1 hour 4) Acute alcohol intoxication - Patient is a chronic Alcoholic. She is only 36 years old, and her symptoms are worsening and becoming more frequent. - Education HPI/ROS Admit Date/Time Admit Date/Time Hx of Present Illness Chief Complaint blood in stools x 2 days, vomited blood x 2 days HPI The patient is a 36-year-old female, presenting to the ER because she has been vomiting dark red blood and having dark red stool for the last 2 days intermittently. She has similar symptoms previously and was hospitalized in November 2016 with similar symptoms. She has been drinking alcohol tonight. She denies any headache, neck pain, chest pain, dyspnea; she complains of vague and mild epigastric abdominal discomfort, denies dysuria, diarrhea, constipation. She denies smoking, drinks regularly, denies illicit ER Course per ER physician: The patient is a 36-year-old female, presenting with acute hematemesis and acute hematochezia, probable acute esophageal varices bleeding, acute hypomagnesemia, acute alcohol intoxication. she was treated with 2 L normal saline, morphine 2 mg IV for pain, Zofran 4 mg IV for nausea and magnesium sulfate 2 g IV. The differential diagnoses considered include but are not limited to gastritis, peptic ulcer disease, esophageal varices, Yennifer-Rosales tear. The differential diagnoses considered include but are not limited to carcinoma, polyp, hemorrhoid, fissure, diverticulosis, angiodysplasia. I have order for nasogastric tube that drained out about 200 cc of coffee- ground emesis , connected to low intermittent suction. Hemoccult is positive She is treated with Protonix 80 mg IV and Protonix drip, octreotide 50 g IV and octreotide drip ROS Constitutional: fatigue, No chills, No diaphoresis, No febrile, No nausea Eyes: No discharge, No visual change ENT: sore throat (Did not have a sore throat until the NGT was placed.), No congestion, No dysphagia Cardiovascular: chest pain, No palpitations Gastrointestinal: blood, No diarrhea, No nausea, No vomiting Genitourinary: No bleeding, No discharge, No hematuria Musculoskeletal: No back pain, No neck pain Skin: No bruising, No erythema, No pruritis, No rash Neurologic: No confusion, No dizziness, No focal-weakness, No headache Endocrine: No polydypsia, No polyuria Lymphatic: No adenopathy, No tender nodes Psychological: anxiety, depression Immunologic: No pruritis, No rhinitis PMH/Family/Social Past Medical History Alcoholism Past Surgical History EGD, X3 Past Surgical Hx: no surgical history Social History Alcohol Use: heavy Smoking Status: Former smoker Exam/Review of Systems Vital Signs Vitals Vital Signs Date Time Temp Pulse Resp B/P Pulse Ox O2 Delivery O2 Flow Rate FiO2 12/29/16 02:56 101 17 110/70 99 Room Air 12/29/16 02:28 98.9 Exam Exam Const: Alert and oriented. I mild distress due to pain and anxiety. Head: Nomocephalic/Atraumatic. Eyes: Pale Conjunctiva. No scleral icterus. EOMI ENT: Normal External Ears, Nose (NGT in place with thin, red blood noted). Dry lips and mouth appears a bit dry as well.. Neck: Supple. No lymphadenopathy. Resp: Clear to auscultation bilaterally, but decreased airflow throughout.. Cardio: Regular rate and rhythm, no murmurs. Abd: Hypoactive bowel sounds. Soft, distended, moderate epigastric tenderness, no rigidity, mild guarding. No rebound. Skin: Normal moisture and temperature. No rash or jaundice appreciated , but exam difficult due to dark skin.. Ext: No cyanosis, or edema. Radial and DP pulses +2/4 and equal bilaterally. Neur: Awake and alert. No focal deficit. Normal speech. Psych: Appropriate Mood and Affect. Good eye contact. Labs Result Diagram: 12/29/16 0400 12/29/16 0400 Medications Medications Current Medications Sodium Chloride 1,000 ml @ 1,000 mls/hr Q1H ONCE IV ; Start 12/29/16 at 05:30; Stop 12/29/16 at 06:29 Sodium Chloride (NS) 1,000 ml @ 1,000 mls/hr Q1H ONCE IV ; Start 12/29/16 at 05 :01; Stop 12/29/16 at 06:00 Morphine Sulfate (morphine) 2 mg ONCE ONCE IV ; Start 12/29/16 at 05:30; Stop 12/29/16 at 05:31 Lidocaine 1 applic 1 applic ONCE ONCE TOP ; Start 12/29/16 at 05:30; Stop 12/29 at 05:31 Magnesium Sulfate (Magnesium Sulfate 2 Gm/50 ml) 50 ml @ 25 mls/hr ONCE ONCE IVPB ; Start 12/29/16 at 05:30; Stop 12/29/16 at 07:29 Procedures Procedures Laboratory Tests Test 12/29/16 04:00 Alanine Aminotransferase (ALT/SGPT) 35IU/L Albumin 3.5g/dl Albumin/Globulin Ratio 0.74 Alkaline Phosphatase 145IU/L Anion Gap 21 Aspartate Amino Transf (AST/SGOT) 156IU/L Basophils # 0.010^3/ul Basophils % 0.2% Blood Urea Nitrogen 7mg/dl Calcium Level 7.9mg/dl Carbon Dioxide Level 27mmol/L Chloride Level 103mmol/L Creatinine 0.47mg/dl Direct Bilirubin 1.00mg/dl Eosinophils # 0.110^3/ul Eosinophils % 1.2% Ethyl Alcohol Level 419.0mg/dl Globulin 4.70g/dl Glucose Level 88mg/dl Hematocrit 26.4% Hemoglobin 8.9g/dl Indirect Bilirubin 1.5mg/dl Lipase < 10U/L Lymphocytes # 1.710^3/ul Lymphocytes % 33.7% Magnesium Level 1.6mg/dl Mean Corpuscular Hemoglobin 33.8pg Mean Corpuscular Hemoglobin Concent 33.7g/dl Mean Corpuscular Volume 100.4fl Mean Platelet Volume 11.3fl Monocytes # 0.410^3/ul Monocytes % 6.8% Neutrophils # 3.010^3/ul Neutrophils % 57.7% Nucleated Red Blood Cells # 0.010^3/ul Nucleated Red Blood Cells % 0.0/100WBC Platelet Count 3010^3/UL Platelet Estimate PLT APPEAR DECREASED Potassium Level 3.6mmol/L Red Blood Count 2.6310^6/ul Red Cell Distribution Width 17.2% Sodium Level 147mmol/L Total Bilirubin 2.5mg/dl Total Protein 8.2g/dl White Blood Count 5.110^3/ul LIDA HERZOG DO Dec 29, 2016 05:27
[2016-12-29] MEDS ORDERED: MAGNESIUM SULFATE 2 GM/50 ML 50 ML IVPB ONE ×2 (05:30→14:30)
[2016-12-29] MEDS ORDERED: LIDOCAINE 2% JELLY 5 ML TOP ONE (05:30)
[2016-12-29] MEDS ORDERED: ONDANSETRON 4 MG TAB PO PRN (06:00)
[2016-12-29] MEDS ORDERED: NACL 0.9% 3 ML SYG IV SCH (06:00)
[2016-12-29] MEDS ORDERED: OCTREOTIDE 50 MCG in SOD CHLORIDE 0.9% 25 ML IVPB STA (06:01)
[2016-12-29] MEDS ORDERED: OCTREOTIDE 500 MCG in SOD CHLORIDE 0.9% 49 ML IV STA (06:01)
[2016-12-29] MEDS ORDERED: PANTOPRAZOLE IV 80 MG in SOD CHLORIDE 0.9% 100 ML IVPB STA (06:01)
[2016-12-29] MEDS: PANTOPRAZOLE IV 80 MG in SOD CHLORIDE 0.9% 100 ML IV STA ×2 (07:36→12:20)
--- NOTE | 2016-12-29 10:24 | CONS ---
Date/Time of Note Date/Time of Note DATE: 12/29/16 TIME: 10:23 Assessment/Plan Assessment/Plan Additional Assessment/Plan Acute anemia Evaluate GI bleed versus chronic iron deficiency vs other etiology Stool OB, if positive strongly recommend EGD Monitor H&H every 8 hours, transfuse 2 units for hemoglobin less than 7.5 Monitor labs Continue PPI and Octreotide drips EGD if clinically indicated, pt advised of R/B/A to procedure and provide informed consent to proceed EtOH abuse Management per Primary Recommend abstinence Recommend social work consult Further recommendations depend on clinical course Patient seen in collaboration with Dr. Salazar Consultation Date/Type/Reason Admit Date/Time Type of Consultation: Gastroenterology Reason for Consultation Anemia Hx of Present Illness Ms. Ynes Lamb is a 36-year-old female patient w that presented to the ED with complaints of epigastric abdominal pain and hematemesis 2 days. She denies fever, chills, and diarrhea. Pt had previous EGD with Dr. Salazar November 28 that noted 1. Grade I/IV esophageal varices of no clinical significance. 2. Distal esophagitis, moderate. And 3. Hemorrhagic alcoholic gastritis. Patient was DC'd with PPI as she reports she currently takes. Patient reports last alcohol use 2 days ago. At bedside, NG tube inserted to low intermittent suction with bloody discharge. Patient consents to EGD. Patient advised of risks/benefits/alternatives to procedure and she provides informed consent to proceed. Eyes: No discharge, No visual change ENT: sore throat (Did not have a sore throat until the NGT was placed.), No congestion, No dysphagia Cardiovascular: chest pain, No palpitations Gastrointestinal: blood, No diarrhea, No nausea, No vomiting Genitourinary: No bleeding, No discharge, No hematuria Musculoskeletal: No back pain, No neck pain Skin: No bruising, No erythema, No pruritis, No rash Neurologic: No confusion, No dizziness, No focal-weakness, No headache Lymphatic: No adenopathy, No tender nodes Psychological: anxiety, depression Immunologic: No pruritis, No rhinitis Past Medical History Medical History: GI bleed Past Surgical History Past Surgical Hx: no surgical history Social History Alcohol Use: heavy Smoking Status: Former smoker Exam/Review of Systems Vital Signs Vitals Vital Signs Date Time Temp Pulse Resp B/P Pulse Ox O2 Delivery O2 Flow Rate FiO2 12/29/16 09:18 98.5 80 14 103/62 96 Room Air Exam Constitutional: alert, oriented, well developed Psych: nl mood/affect Head: normocephalic Eyes: EOMI, nl conjunctiva, nl lids ENMT: nl external ears & nose, nl lips & teeth, nl nasal mucosa & septum Respiratory: clear to auscultation, normal air movement Cardiovascular: regular rate and rhythm Gastrointestinal: soft, epigastric tenderness Musculoskeletal: nl extremities to inspection Neurological: DRESS DRAPER II-XII intact Results Result Diagram: 12/29/160 12/29/16 0400 Results 24 hrs Laboratory Tests Test 12/29/16 04:00 Alanine Aminotransferase (ALT/SGPT) 35 Albumin 3.5 Albumin/Globulin Ratio 0.74 Alkaline Phosphatase 145 H Anion Gap 21 H Aspartate Amino Transf (AST/SGOT) 156 H Basophils # 0.0 Basophils % 0.2 Blood Urea Nitrogen 7 Calcium Level 7.9 L Carbon Dioxide Level 27 Chloride Level 103 Creatinine 0.47 Direct Bilirubin 1.00 H Eosinophils # 0.1 Eosinophils % 1.2 Ethyl Alcohol Level 419.0 Globulin 4.70 H Glucose Level 88 Hematocrit 26.4 L Hemoglobin 8.9 L Indirect Bilirubin 1.5 H Lipase < 10 L Lymphocytes # 1.7 Lymphocytes % 33.7 Magnesium Level 1.6 L Mean Corpuscular Hemoglobin 33.8 H Mean Corpuscular Hemoglobin Concent 33.7 Mean Corpuscular Volume 100.4 Mean Platelet Volume 11.3 #H Monocytes # 0.4 Monocytes % 6.8 Neutrophils # 3.0 Neutrophils % 57.7 Nucleated Red Blood Cells # 0.0 Nucleated Red Blood Cells % 0.0 Platelet Count 30 L Platelet Estimate PLT APPEAR DECREASED Potassium Level 3.6 Red Blood Count 2.63 L Red Cell Distribution Width 17.2 #H Sodium Level 147 H Total Bilirubin 2.5 H Total Protein 8.2 H White Blood Count 5.1 Medications Medications Current Medications Potassium Chloride/Sodium Chloride (NS-KCl 20 Meq) 1,000 ml @ 100 mls/hr Q10H IV ; Start 12/29/16 at 05:45 Lorazepam (Ativan) 0.5 mg Q8H PRN PO ANXIETY; Start 12/29/16 at 06:00 Ondansetron HCl (Zofran Tab) 4 mg Q6H PRN PO NAUSEA AND/OR VOMITING; Start 3/ 11/17 at 06:00 Famotidine (Pepcid Iv) 20 mg Q12 IV ; Start 12/29/16 at 09:00 JAMESON CARCAMO Dec 29, 2016 10:24
[2016-12-29] MEDS: FAMOTIDINE 20 MG INJ IV SCH ×2 (11:18→20:13)
[2016-12-29 11:46] LABS: HEMATOCRIT 24.2 % (37.0-47.0); HEMOGLOBIN 7.9 g/dl (12.0-16.0)
[2016-12-29 12:05] LABS: INR 2.19; PROTIME 24.6 Sec (12.2-14.2); PT RATIO 1.9
[2016-12-29] MEDS: NS + KCL 20 MEQ 1,000 ML IV SCH ×3 (12:32→23:30)
[2016-12-29] MEDS ORDERED: PROPOFOL 20 ML ONE (12:56)
[2016-12-29] MEDS ORDERED: MIDAZOLAM 1 MG/ML 2 ML INJ ONE (12:56)
[2016-12-29] MEDS ORDERED: FENTAnyl 50 MCG/ML VIAL ONE (12:56)
[2016-12-29] MEDS: traMADol 50 MG TAB PO PRN ×2 (14:44→20:13)
[2016-12-29 15:04] LABS: ADD SCAN DIFF NO
[2016-12-29 15:06] LABS: ABNORMAL IP MESSAGE 1; BASOPHILS % 0.6 % (0.0-2.0); EOSINOPHILS % 0.6 % (0.0-7.0); HEMATOCRIT 25.1 % (37.0-47.0); HEMOGLOBIN 8.2 g/dl (12.0-16.0); LYMPHOCYTES # 0.5 10^3/ul (0.8-2.9); LYMPHOCYTES % 32.5 % (15.0-51.0); MEAN CORPUSCULAR HEMOGLOBIN 33.9 pg (29.0-33.0); MEAN CORPUSCULAR HGB CONC 32.7 g/dl (32.0-37.0); MEAN CORPUSCULAR VOLUME 103.7 fl (82.0-101.0); MEAN PLATELET VOLUME 11.7 fl (7.4-10.4); MONOCYTE # 0.1 10^3/ul (0.3-0.9); MONOCYTES % 3.9 % (0.0-11.0); NEUTROPHILS % 61.8 % (39.0-77.0); RED BLOOD COUNT 2.42 10^6/ul (4.20-5.40); RED CELL DISTRIBUTION WIDTH 17.3 % (11.5-14.5)
--- NOTE | 2016-12-29 15:20 | GILP ---
DATE OF PROCEDURE: 12/29/2016 PROCEDURE: Esophagogastroduodenoscopy. SURGEON: Juan Salazar MD. HISTORY AND INDICATIONS: The patient with history of significant alcohol abuse, recently evaluated on 11/28/2016 for GI bleeding related to hemorrhagic gastritis. The patient is readmitted with sign ificant hematemesis and melena. PREMEDICATION: Monitored anesthesia care by anesthesiologist. INSTRUMENT USED: Olympus panendoscope. TECHNIQUE: After informed consent, with the patient/relatives understanding the procedure, its indic ations, potential risks and complications, including but not limited to: allergic reaction, bleeding , perforation or infection, and after all pertinent questions were answered to the patients satisfac tion, the patient/relatives signed witnessed informed consent. Following this, premedication was ad ministered slowly IV push under careful cardiovascular and respiratory monitoring with pulse oximetr y, automatic blood pressure and monitoring coordinator. Once the sedative effect was achieved the patient was p lace in the left lateral decubitus, the panendoscope was introduced and advanced under visual contro l. Careful examination of the upper gastrointestinal tract, both on insertion as well as withdrawal of the instrument disclosed the following findings: ESOPHAGUS: The distal esophagus shows grade I/IV esophageal varices. There is significant erythema and edema of the mucosa at the EG junction. STOMACH: Upon entrance to the stomach, air was insufflated, the gastric flor distended normally. There is severe erythema, edema and superficial erosion of the mucosa with hemorrhagic changes in th e fundus of the stomach. No biopsies were obtained due to significant thrombocytopenia. PYLORUS: The pylorus is patent and within normal limits. DUODENUM: The duodenal bulb shows erythema and edema of the mucosa of a moderate degree. Second po rtion of duodenum was unremarkable. The instrument was then withdrawn, the patient tolerated the procedure well and was transfer out of the endoscopy suite awake, and in good condition to continue recovery under observation IMPRESSION: 1. Grade I/IV esophageal varices. 2. Distal esophagitis. 3. Severe hemorrhagic gastritis. 4. Duodenitis. PLAN: The patient will be continued on PPIs and octreotide for at least 24 hours, at which point oc treotide may be discontinued. We will add liquid Carafate and also maintain platelets above 50,000 to decrease the chance this is further significant bleeding. Clearly abstinence will be paramount t o the patient's prognosis. Unfortunately, the likelihood of abstinence appears low. Dictated By: JUAN SALAZAR MS/NTS Conf#: [id number] DID#: [id number] CC: JUAN SALAZAR;*EndCC*
[2016-12-29 15:28] LABS: PLATELET COUNT 26 10^3/UL (140-415)
[2016-12-29 15:29] LABS: WHITE BLOOD COUNT 1.5 10^3/ul (4.8-10.8)
[2016-12-29] MEDS: SUCRALFATE (100 MG/ML) 10ML CUP PO SCH ×2 (17:22→20:13)
[2016-12-29 18:52] LABS: HEMATOCRIT 22.8 % (37.0-47.0); HEMOGLOBIN 7.2 g/dl (12.0-16.0)
[2016-12-29] MEDS: LORAZEPAM 0.5 MG TAB PO PRN (23:26)
[2016-12-30] VITALS (10 sets, daily range): BP systolic 94–112; BP diastolic 50–66; PULSE 90–108; RESP 18
[2016-12-30 01:12] LABS: HEMATOCRIT 24.4 % (37.0-47.0); HEMOGLOBIN 8.1 g/dl (12.0-16.0)
[2016-12-30] MEDS: ZOLPIDEM 5 MG TAB PO PRN ×2 (01:48→22:08)
[2016-12-30] MEDS: traMADol 50 MG TAB PO PRN ×2 (03:15→09:28)
[2016-12-30 06:23] LABS: ADD SCAN DIFF NO
[2016-12-30 06:29] LABS: ABNORMAL IP MESSAGE 1; HEMATOCRIT 22.6 % (37.0-47.0); HEMOGLOBIN 7.8 g/dl (12.0-16.0); MEAN CORPUSCULAR HEMOGLOBIN 34.1 pg (29.0-33.0); MEAN CORPUSCULAR HGB CONC 34.5 g/dl (32.0-37.0); MEAN CORPUSCULAR VOLUME 98.7 fl (82.0-101.0); MEAN PLATELET VOLUME 10.8 fl (7.4-10.4); RED BLOOD COUNT 2.29 10^6/ul (4.20-5.40); RED CELL DISTRIBUTION WIDTH 18.1 % (11.5-14.5); WHITE BLOOD COUNT 1.9 10^3/ul (4.8-10.8)
[2016-12-30 06:40] LABS: ALBUMIN 2.5 g/dl (3.3-4.9)
[2016-12-30 06:41] LABS: CHLORIDE 102 mmol/L (97-110); POTASSIUM 3.9 mmol/L (3.5-5.1); SODIUM 136 mmol/L (135-144)
[2016-12-30 06:43] LABS: ALBUMIN/GLOBULIN RATIO 0.69; AMYLASE 48 U/L (11-123); ANION GAP 13 (8-16); BILIRUBIN,INDIRECT 2.7 mg/dl (0-1.1); BILIRUBIN,TOTAL 3.4 mg/dl (0.2-1.3); CARBON DIOXIDE 25 mmol/L (21-31); TOTAL PROTEIN 6.1 g/dl (6.1-8.1)
[2016-12-30 06:44] LABS: ALANINE AMINOTRANSFERASE 32 IU/L (13-69); ALKALINE PHOSPHATASE 99 IU/L (42-121); ASPARTATE AMINO TRANSFERASE 110 IU/L (15-46); BLOOD UREA NITROGEN 2 mg/dl (7-20); CALCIUM 6.9 mg/dl (8.4-10.2); GLUCOSE 114 mg/dl (70-220)
[2016-12-30 06:46] LABS: PLATELET COUNT 19 10^3/UL (140-415)
[2016-12-30 06:50] LABS: MAGNESIUM 1.4 mg/dl (1.7-2.5); PHOSPHORUS 1.9 mg/dl (2.5-4.9)
[2016-12-30] MEDS: SUCRALFATE (100 MG/ML) 10ML CUP PO SCH ×4 (08:33→20:35)
[2016-12-30] MEDS: FAMOTIDINE 20 MG INJ IV SCH (08:33)
[2016-12-30 10:26] LABS: CHOL/HDL RATIO 5.7 RATIO
--- NOTE | 2016-12-30 10:57 | CONS ---
Date/Time of Note Date/Time of Note DATE: 12/30/16 TIME: 10:56 Assessment/Plan Assessment/Plan Chief Complaint/Hosp Course Ms. Ynes Lamb is a 36-year-old female patient w that presented to the ED with complaints of epigastric abdominal pain and hematemesis 2 days. She denies fever, chills, and diarrhea. Pt had previous EGD with Dr. Salazar November 28 that noted 1. Grade I/IV esophageal varices of no clinical significance. 2. Distal esophagitis, moderate. And 3. Hemorrhagic alcoholic gastritis. Patient was DC'd with PPI as she reports she currently takes. Patient reports last alcohol use 2 days ago. At bedside, NG tube inserted to low intermittent suction with bloody discharge. Patient consents to EGD. Patient advised of risks/benefits/alternatives to procedure and she provides informed consent to proceed. Problems: Consultation Date/Type/Reason Admit Date/Time Dec 29, 2016 at 09:40 Initial Consult Date Type of Consultation: Gastroenterology 24 HR Interval Summary Free Text/Dictation New onset neutropenia and jaundice Exam/Review of Systems Vital Signs Vitals Vital Signs Date Time Temp Pulse Resp B/P Pulse Ox O2 Delivery O2 Flow Rate FiO2 12/30/16 08:09 93 12/30/16 07:52 98.6 18 110/58 97 12/29/16 14:10 Room Air Intake and Output 12/29/16 12/29/16 12/30/16 15:00 23:00 07:00 Intake Total 0 ml 2160 ml Balance 0 ml 2160 ml Results Result Diagram: 12/30/16 0530 12/30/16 0545 Results 24 hrs Laboratory Tests Test 12/29/16 10:57 12/29/16 14:41 12/29/16 17:57 12/30/16 01:05 Hematocrit 24.2 L 25.1 L 22.8 L 24.4 L Hemoglobin 7.9 L 8.2 L 7.2 L 8.1 L INR International Normalized Ratio 2.19 Prothrombin Time 24.6 #H Prothrombin Time Ratio 1.9 Basophils # 0.0 Basophils % 0.6 Eosinophils # 0.0 Eosinophils % 0.6 Lymphocytes # 0.5 L Lymphocytes % 32.5 Mean Corpuscular Hemoglobin 33.9 H Mean Corpuscular Hemoglobin Concent 32.7 Mean Corpuscular Volume 103.7 H Mean Platelet Volume 11.7 H Monocytes # 0.1 L Monocytes % 3.9 Neutrophils # 1.0 L Neutrophils % 61.8 Nucleated Red Blood Cells # 0.0 Nucleated Red Blood Cells % 0.0 Platelet Count 26 *L Red Blood Count 2.42 L Red Cell Distribution Width 17.3 H White Blood Count 1.5 #L Test 12/30/16 04:30 12/30/16 05:30 12/30/16 05:45 Cholesterol Level 162 Cholesterol/HDL Ratio 5.7 Free Thyroxine 1.28 HDL Cholesterol 28 L LDL Cholesterol, Calculated 108 Thyroid Stimulating Hormone (TSH) Pending Triglycerides Level 128 Hematocrit 22.6 L Hemoglobin 7.8 L Hemoglobin A1c 4.8 Magnesium Level 1.4 L Mean Corpuscular Hemoglobin 34.1 H Mean Corpuscular Hemoglobin Concent 34.5 Mean Corpuscular Volume 98.7 Mean Platelet Volume 10.8 H Phosphorus Level 1.9 L Platelet Count 19 #*L Red Blood Count 2.29 L Red Cell Distribution Width 18.1 H White Blood Count 1.9 #L Alanine Aminotransferase (ALT/SGPT) 32 Albumin 2.5 #L Albumin/Globulin Ratio 0.69 Alkaline Phosphatase 99 Amylase Level 48 Anion Gap 13 # Aspartate Amino Transf (AST/SGOT) 110 H Blood Urea Nitrogen 2 L Calcium Level 6.9 L Carbon Dioxide Level 25 Chloride Level 102 Creatinine 0.40 L Direct Bilirubin 0.70 #H Globulin 3.60 H Glucose Level 114 Indirect Bilirubin 2.7 H Lipase < 10 L Potassium Level 3.9 Sodium Level 136 Total Bilirubin 3.4 H Total Protein 6.1 # Medications Medications Current Medications Potassium Chloride/Sodium Chloride (NS-KCl 20 Meq) 1,000 ml @ 100 mls/hr Q10H IV Last administered on 12/29/16 23:30; Admin Dose 100 MLS/HR; Start 12/29/16 at 05:45 Lorazepam (Ativan) 0.5 mg Q8H PRN PO ANXIETY Last administered on 12/29/16 23: 26; Admin Dose 0.5 MG; Start 12/29/16 at 06:00 Ondansetron HCl (Zofran Tab) 4 mg Q6H PRN PO NAUSEA AND/OR VOMITING; Start 09/06 at 06:00 Famotidine (Pepcid Iv) 20 mg Q12 IV Last administered on 12/30/16 08:33; Admin Dose 20 MG; Start 12/29/16 at 09:00 Sucralfate (Carafate Susp) 1 gm QID PO Last administered on 12/30/16 08:33; Admin Dose 1 GM; Start 12/29/16 at 17:00 Tramadol HCl (Ultram) 50 mg Q6H PRN PO Pain Last administered on 12/30/16 09: 28; Admin Dose 50 MG; Start 12/29/16 at 14:30 Zolpidem Tartrate (Ambien) 5 mg HS PRN PO INSOMNIA Last administered on 01:48; Admin Dose 5 MG; Start 12/30/16 at 02:00 JAMESON CARCAMO Dec 30, 2016 10:57
[2016-12-30 11:01] LABS: LYMPHOCYTES # 0.3 10^3/ul (0.8-2.9); NEUTROPHIL # 1.2 10^3/ul (1.6-7.5); PLATELET ESTIMATE PLT APPEAR
[2016-12-30 11:08] LABS: THYROID STIMULATING HORMONE 0.251 MIU/L (0.465-4.680)
[2016-12-30 11:20] LABS: HEMATOCRIT 23.9 % (37.0-47.0); HEMOGLOBIN 8.1 g/dl (12.0-16.0)
[2016-12-30] MEDS: NS + KCL 20 MEQ 1,000 ML IV SCH ×2 (11:45→14:25)
[2016-12-30] MEDS ORDERED: BARIUM SULF 2% 450 ML BTL (BERRY SMOOTHIE) PO ONE (12:30)
[2016-12-30] MEDS: PANTOPRAZOLE IV 80 MG in SOD CHLORIDE 0.9% 100 ML IV SCH ×2 (12:45→21:56)
[2016-12-30] MEDS ORDERED: ONDANSETRON 4 MG INJ IV PRN (13:00)
[2016-12-30] MEDS: morphine 2 MG INJ IV PRN ×2 (13:21→20:41)
[2016-12-30] MEDS ORDERED: MAGNESIUM SULFATE 3 GM in SOD CHLORIDE 0.9% 100 ML IVPB SCH (13:30)
[2016-12-30] MEDS ORDERED: METOCLOPRAMIDE 10 MG INJ IV PRN (13:30)
[2016-12-30 13:58] LABS: PLATELET COUNT 20 10^3/UL (140-415)
[2016-12-30] MEDS ORDERED: SODIUM PHOSPHATE 20 MEQ in SOD CHLORIDE 0.9% 250 ML IVPB SCH (14:00)
[2016-12-30 14:08] LABS: INR 1.87; PROTIME 21.7 Sec (12.2-14.2); PT RATIO 1.7
[2016-12-30 14:09] LABS: LACTATE DEHYDROGENASE 649 IU/L (313-618); PARTIAL THROMBOPLASTIN TIME 45.3 Sec (25.0-35.0)
[2016-12-30 14:28] LABS: FIBRIN SPLIT PRODUCT <10 ug/ml (<10)
[2016-12-30 14:35] LABS: D-DIMER 5147.19 ng/ml (<460)
--- NOTE | 2016-12-30 15:48 | CONS ---
Date/Time of Note Date/Time of Note DATE: 12/30/16 TIME: 15:39 Assessment/Plan Assessment/Plan Problems: (1) Coagulopathy Comment: secondary to liver disease and rx with vit K follow INR (2) Neutropenia Comment: neutropenia sec to liver disease and follow signs of infection. if ANC is lower than 500 may consider growth factors. (3) Thrombocytopenia Status: Acute Comment: severe thrombocytopenia secondary to etoh and liver disase, and continue transfusion because of GIB. workup being done and r/o other reasons like ITP, TTP and hemolysis (4) Acute GI bleeding Status: Acute Comment: follow GI recommendations. (5) Acute alcohol intoxication Status: Acute Comment: primary reason for pancytopenia and strongly recommends stopping etoh. Consultation Date/Type/Reason Admit Date/Time Dec 29, 2016 at 09:40 Date of Consultation: Dec 30, 2016 Type of Consultation: Hematology for lizzeth Reason for Consultation pancytopenia Hx of Present Illness Patient with severe pancytopenia admitted for GIB found to have severe alcoholic gastritis and esophageal varices now s/p EGD. On multiple daily platelet transfusion and still with persistent signs of bleeding. ON PPI and octreotide. Subjective hx not possible: pt critical Constitutional: poor po Eyes: no complaints, No discharge, No visual change ENT: sore throat (Did not have a sore throat until the NGT was placed.), No congestion, No dysphagia Respiratory: shortness of breath Cardiovascular: chest pain, No palpitations Gastrointestinal: blood, No diarrhea, No nausea, No vomiting Genitourinary: No bleeding, No discharge, No hematuria Musculoskeletal: No back pain, No neck pain Skin: No bruising, No erythema, No pruritis, No rash Neurologic: No confusion, No dizziness, No focal-weakness, No headache Lymphatic: No adenopathy, No tender nodes Psychological: anxiety, depression Immunologic: No pruritis, No rhinitis Past Medical History Medical History: GI bleed Past Surgical History Past Surgical Hx: no surgical history Family History Significant Family History: no pertinent family hx Social History Alcohol Use: heavy Smoking Status: Former smoker Exam/Review of Systems Vital Signs Vitals Vital Signs Date Time Temp Pulse Resp B/P Pulse Ox O2 Delivery O2 Flow Rate FiO2 12/30/16 12:35 98.6 88 18 112/55 98 12/29/16 14:10 Room Air Intake and Output 12/29/16 12/29/16 12/30/16 15:00 23:00 07:00 Intake Total 0 ml 2160 ml Balance 0 ml 2160 ml Exam pallor oral mucosal bleeding Constitutional: alert, oriented Psych: anxiety Eyes: icteric Neck: supple Respiratory: normal air movement Gastrointestinal: distended, firm Results Result Diagram: 12/30/16 1330 12/30/16 0545 Results 24 hrs Laboratory Tests Test 12/29/16 17:57 12/30/16 01:05 12/30/16 04:30 12/30/16 05:30 Hematocrit 22.8 L 24.4 L 22.6 L Hemoglobin 7.2 L 8.1 L 7.8 L Serum HCG, Qualitative NEGATIVE Cholesterol Level 162 Cholesterol/HDL Ratio 5.7 Free Thyroxine 1.28 HDL Cholesterol 28 L LDL Cholesterol, Calculated 108 Thyroid Stimulating Hormone (TSH) 0.251 L Triglycerides Level 128 Band Neutrophils % 19.0 H Eosinophils # 0.0 Eosinophils % 1.0 Hemoglobin A1c 4.8 Lymphocytes # 0.3 L Lymphocytes % 17.0 Magnesium Level 1.4 L Mean Corpuscular Hemoglobin 34.1 H Mean Corpuscular Hemoglobin Concent 34.5 Mean Corpuscular Volume 98.7 Mean Platelet Volume 10.8 H Neutrophils # 1.2 L Neutrophils % 63.0 Phosphorus Level 1.9 L Platelet Count 19 #*L Platelet Estimate PLT APPEAR Red Blood Count 2.29 L Red Cell Distribution Width 18.1 H White Blood Count 1.9 #L Test 12/30/16 05:45 12/30/16 11:12 12/30/16 13:30 Alanine Aminotransferase (ALT/SGPT) 32 Albumin 2.5 #L Albumin/Globulin Ratio 0.69 Alkaline Phosphatase 99 Amylase Level 48 Anion Gap 13 # Aspartate Amino Transf (AST/SGOT) 110 H Blood Urea Nitrogen 2 L Calcium Level 6.9 L Carbon Dioxide Level 25 Chloride Level 102 Creatinine 0.40 L Direct Bilirubin 0.70 #H Globulin 3.60 H Glucose Level 114 Indirect Bilirubin 2.7 H Lipase < 10 L Potassium Level 3.9 Sodium Level 136 Total Bilirubin 3.4 H Total Protein 6.1 # Hematocrit 23.9 L Hemoglobin 8.1 L Activated Partial Thromboplast Time 45.3 H D-Dimer 5147.19 H D-Dimer Comment Fibrinogen 163.0 L HIV (1&2) Antibody NEGATIVE INR International Normalized Ratio 1.87 Lactate Dehydrogenase 649 H Plasma Fibrin Degradation Products <10 Platelet Count 20 *L Prothrombin Time 21.7 H Prothrombin Time Ratio 1.7 Thrombin Time 19.0 Medications Medications Current Medications Potassium Chloride/Sodium Chloride (NS-KCl 20 Meq) 1,000 ml @ 100 mls/hr Q10H IV Last administered on 12/30/16 14:25; Admin Dose 100 MLS/HR; Start 12/29/16 at 05:45 Lorazepam (Ativan) 0.5 mg Q8H PRN PO ANXIETY Last administered on 12/29/16 23: 26; Admin Dose 0.5 MG; Start 12/29/16 at 06:00 Ondansetron HCl (Zofran Tab) 4 mg Q6H PRN PO NAUSEA AND/OR VOMITING Last administered on 12/30/16 12:15; Admin Dose 4 MG; Start 12/29/16 at 06:00 Sucralfate (Carafate Susp) 1 gm QID PO Last administered on 12/30/16 12:49; Admin Dose 1 GM; Start 12/29/16 at 17:00 Tramadol HCl (Ultram) 50 mg Q6H PRN PO Pain Last administered on 12/30/16 09: 28; Admin Dose 50 MG; Start 12/29/16 at 14:30 Zolpidem Tartrate 5 mg 5 mg HS PRN PO INSOMNIA Last administered on 12/30/16 01:48; Admin Dose 5 MG; Start 12/30/16 at 02:00 Pantoprazole/ Sodium Chloride (Protonix Iv/NS) 100 ml @ 10 mls/hr Q10H IV Last administered on 12/30/16 12:45; Admin Dose 10 MLS/HR; Start 12/30/16 at 12 :30 Ondansetron HCl 4 mg 4 mg Q4H PRN IV NAUSEA AND/OR VOMITING Last administered on 12/30/16 13:53; Admin Dose 4 MG; Start 12/30/16 at 13:00 Magnesium Sulfate 3 gm/Sodium Chloride 106 ml @ 35.333 mls/ hr ONCE IVPB Last administered on 12/30/16 14:25; Admin Dose 35.333 MLS/HR; Start 12/30/16 at 13: 30; Stop 12/30/16 at 16:29 Sodium Phosphate/ Sodium Chloride (Sodium Phosphate/NS) 255 ml @ 63.75 mls/ hr ONCE IVPB ; Start 12/30/16 at 14:00; Stop 12/30/16 at 17:59 Morphine Sulfate (morphine) 2 mg Q4H PRN IV Pain Last administered on 13:21; Admin Dose 2 MG; Start 12/30/16 at 13:00 Metoclopramide HCl (Reglan) 10 mg Q4H PRN IV Nausea/Vomiting Last administered on 12/30/16 13:21; Admin Dose 10 MG; Start 12/30/16 at 13:30 CARLOTA ALVARENGA MD Dec 30, 2016 15:48
[2016-12-30] MEDS ORDERED: PHYTONADIONE 10 MG/ML INJ SC ONE (16:00)
--- NOTE | 2016-12-30 16:27 | PN ---
DATE: 12/30/2016 TIME OF EVALUATION: 1:00 p.m. SUBJECTIVE DATA: Complains of abdominal pain. The patient had an episode of nonbloody vomiting earlier today. The patient getting a platelet transfusion. OBJECTIVE DATA: VITAL SIGNS: Temperature 98.6, pulse rate 88, respiratory rate 18, blood pressure 112/54, oxygen saturation 98% on room air. GENERAL: This is a thin -[place]izen [place] female sitting in a chair in no apparent distress. HEENT: Head normocephalic and atraumatic. Eyes: Icteric sclerae. Conjunctivae clear. ENT: Nasal septum is midline. Oral mucosa is dry. NECK: Supple. No JVD noticed. RESPIRATORY: Bilaterally clear to auscultation. No adventitious breath sounds heard. No use of accessory muscles of respiration. CARDIAC: Regular rate and rhythm. No murmurs. ABDOMEN: Soft. Epigastric tenderness. Bowel sounds positive in all 4 quadrants. GENITOURINARY: Deferred. EXTREMITIES: No cyanosis, no clubbing, no edema. Peripheral pulses are palpable. NEUROLOGIC: The patient is awake, alert and oriented. Cranial nerves are grossly intact. LABORATORY AND DIAGNOSTIC DATA: WBC 1.9, hemoglobin 7.8, hematocrit 22.6, platelet count 19. Sodium 136, potassium 3.9, chloride 102, carbon dioxide 20, anion gap 13, BUN 2, creatinine 0.47, glucose 141, calcium 6.9, total bilirubin 3.4, direct bilirubin 0.70, indirect bilirubin 2.7, AST 110, ALT 32, alkaline phosphatase 99. Lactate dehydrogenase 649 and albumin 2.5. ASSESSMENT AND PLAN: 1. Symptomatic anemia, most probably secondary to acute blood loss. Status post multiple blood product transfusion. The patient is status post esophagogastroduodenoscopy on 12/29/2016 that showed a grade I/ esophageal varices with distal esophagitis, severe hemorrhagic gastritis and duodenitis. Continue the patient on PPI and octreotide. Continue Carafate. Transfuse blood products as needed. 2. Pancytopenia, most probably secondary to ETOH abuse. Continue to transfuse the blood components as needed. Monitor the patient for any bleeding. Continue neutropenic precautions. 3. Hyperbilirubinemia with transaminitis. Etiology unclear. The patient is scheduled for a CT scan of the abdomen and pelvis. Gastroenterology is following the patient. 4. Acute alcoholic intoxication. Will advise cessation. The patient will be monitored for any alcohol withdrawal delirium. 5. Fluid, electrolytes and nutrition. Continue full liquid diet. 6. DVT prophylaxis. Chemical thrombosis prophylaxis contraindicated. B/L SCDs. 7. Gastrointestinal prophylaxis. Proton pump inhibitors. PLAN: 1. Continue current management. 2. Call a hematology consult because of severe pancytopenia. 3. Replete magnesium and phosphorus. Case discussed with Dr. Carbone. DENAE CARBONE MD, AM/OLINDA Conf#: [id number] DID#: [id number]
[2016-12-30] MEDS: LORAZEPAM 0.5 MG TAB PO PRN (17:08)
[2016-12-30] MEDS ORDERED: SOD CHLORIDE 0.9% 100 ML ONE (18:27)
[2016-12-30] MEDS ORDERED: IOHEXOL 300MG/ML 150 ML BTL ONE (18:27)
[2016-12-30 18:39] LABS: HEMATOCRIT 22.7 % (37.0-47.0); HEMOGLOBIN 7.8 g/dl (12.0-16.0)
--- NOTE | 2016-12-30 19:59 | RADRPT ---
PROCEDURE: CT Abdomen and Pelvis with contrast. CLINICAL INDICATION: New-onset jaundice and neutropenia. TECHNIQUE: Multiple contiguous axial CT images of the abdomen and pelvis were obtained following t he administration of 100 cc of Omnipaque-300. Oral contrast was also administered. Coronal and sagit martinez reconstructions were also performed. CTDIvol (mGy): 4.98; Total Exam DLP (mGy-cm): 269.32. One or more of the following dose reduction techniques were utilized: - Automated exposure control. - Adjustment of the mA and/or kV according to patient size. - Use of iterative reconstruction technique. COMPARISON: None. FINDINGS: Limited imaging of the lower thorax demonstrates scattered basilar atelectatic changes. Trace bilat eral pleural effusions are present. The heart is enlarged. The liver is heterogeneously hypodense with multiple tiny round hypodensities scattered throughout t he liver, most of which likely represent small cysts. The liver measures 22.3 cm in a craniocaudal d imension and demonstrates a nodular contour. A small amount of free nelli hepatic fluid is observed. The hepatic and portal veins are patent. The gallbladder surgically absent. There is no intrahepat ic or extrahepatic biliary duct dilatation. The spleen is mildly enlarged measuring 13.5 cm in a sole scraper niocaudal dimension. The gallbladder, pancreas and adrenal glands are unremarkable. The kidneys are symmetric in size and enhancement. There is no hydronephrosis or abnormal perinephr ic inflammation. There are no ureteral stones. The abdominal aorta is normal in caliber. There is no periaortic / retroperitoneal lymphadenopathy. Upper abdominal varices are present. The stomach is collapsed. The small intestines are unremarkable. Mild wall thickening of the ascen ding colon is present. Mesenteric edema is observed. The bladder, uterus and adnexa are unremarkable. There is a small amount of free pelvic fluid. Ther e is no pelvic sidewall or inguinal lymphadenopathy. Skeletal structures are unremarkable. Body wall soft tissues are unremarkable. IMPRESSION: Hepatosplenomegaly with trace ascites, mesenteric edema and varices suggesting sequelae of portal hy pertension. The liver is considerably heterogeneous and hypodense which may reflect superimposed acu te inflammation. Mild wall thickening of the ascending colon which may be a result of portal hypertensive colopathy. RPTAT: QQ .Kasey Alvarado MD, MD Date Time Electronically viewed and signed by .Kasey Alvarado MD, MD on 12/30/2016 19:58 .T/
[2016-12-31] VITALS (12 sets, daily range): BP systolic 104–138; BP diastolic 55–82; PULSE 97–120; RESP 16–20
[2016-12-31 00:50] LABS: HEMATOCRIT 23.4 % (37.0-47.0); HEMOGLOBIN 8.1 g/dl (12.0-16.0)
[2016-12-31] MEDS: morphine 2 MG INJ IV PRN ×3 (01:51→11:06)
[2016-12-31] MEDS: LORAZEPAM 0.5 MG TAB PO PRN (02:24)
[2016-12-31] MEDS: NS + KCL 20 MEQ 1,000 ML IV SCH ×3 (05:22→20:55)
[2016-12-31 07:19] LABS: ADD SCAN DIFF NO
[2016-12-31 07:29] LABS: ABNORMAL IP MESSAGE 1; HEMATOCRIT 25.1 % (37.0-47.0); HEMOGLOBIN 8.4 g/dl (12.0-16.0); MEAN CORPUSCULAR HEMOGLOBIN 33.5 pg (29.0-33.0); MEAN CORPUSCULAR HGB CONC 33.5 g/dl (32.0-37.0); MEAN PLATELET VOLUME 11.9 fl (7.4-10.4); RED BLOOD COUNT 2.51 10^6/ul (4.20-5.40); RED CELL DISTRIBUTION WIDTH 17.5 % (11.5-14.5); WHITE BLOOD COUNT 2.7 10^3/ul (4.8-10.8)
[2016-12-31 07:36] LABS: PLATELET COUNT 23 10^3/UL (140-415)
[2016-12-31 07:46] LABS: ALBUMIN 2.7 g/dl (3.3-4.9); CHLORIDE 101 mmol/L (97-110); POTASSIUM 3.4 mmol/L (3.5-5.1); SODIUM 135 mmol/L (135-144)
[2016-12-31 07:48] LABS: CREATININE 0.43 mg/dl (0.44-1.00)
[2016-12-31 07:49] LABS: ALANINE AMINOTRANSFERASE 29 IU/L (13-69); ALBUMIN/GLOBULIN RATIO 0.69; ALKALINE PHOSPHATASE 105 IU/L (42-121); ANION GAP 11 (8-16); ASPARTATE AMINO TRANSFERASE 107 IU/L (15-46); BILIRUBIN,INDIRECT 2.1 mg/dl (0-1.1); CALCIUM 7.6 mg/dl (8.4-10.2); CARBON DIOXIDE 26 mmol/L (21-31); GLUCOSE 85 mg/dl (70-220); TOTAL PROTEIN 6.6 g/dl (6.1-8.1)
[2016-12-31 07:50] LABS: BLOOD UREA NITROGEN < 2 mg/dl (7-20); MAGNESIUM 1.5 mg/dl (1.7-2.5); PHOSPHORUS 1.8 mg/dl (2.5-4.9)
[2016-12-31] MEDS: SUCRALFATE (100 MG/ML) 10ML CUP PO SCH ×4 (08:48→20:55)
[2016-12-31] MEDS: PANTOPRAZOLE IV 80 MG in SOD CHLORIDE 0.9% 100 ML IV SCH ×2 (08:48→18:43)
[2016-12-31 10:42] LABS: LYMPHOCYTES # 0.8 10^3/ul (0.8-2.9); MYELOCYTES # 0.1; NEUTROPHIL # 1.8 10^3/ul (1.6-7.5)
[2016-12-31] MEDS ORDERED: MAGNESIUM SULFATE 2 GM/50 ML 50 ML IVPB ONE ×2 (12:00→16:00)
[2016-12-31] MEDS ORDERED: LABETALOL HCL 20MG INJ IV ONE (12:00)
[2016-12-31 12:38] LABS: HEMATOCRIT 25.5 % (37.0-47.0); HEMOGLOBIN 8.4 g/dl (12.0-16.0)
[2016-12-31 14:54] LABS: BENZODIAZEPINES Negative (NEGATIVE)
[2016-12-31 14:56] LABS: BARBITURATES Negative (NEGATIVE); CANNABINOIDS Negative (NEGATIVE)
[2016-12-31 14:57] LABS: COCAINE Negative (NEGATIVE)
[2016-12-31 15:02] LABS: OPIATES Positive (NEGATIVE)
--- NOTE | 2016-12-31 15:06 | RADRPT ---
Echocardiogram Report Patient Name: GODWIN MCCANN Gender: Female Date: 1980 Study Date: 31-Dec-2016 Notching Press Operator: Constantine Ayoub [facility] Location: 5536 Ref. Physician: JULIO SHARIF Quality: Good Procedures: Transthoracic echocardiogram with complete 2D, M-Mode, and doppler examination. Indications: SVT. 2D/M Mode Doppler Measurement Value Normal Ranges Measurement Value Normal Ranges LVIDd 2D 5.3 3.5 - 5.6 cm AV Mean Jamel 1.4 m/sec LVIDs 2D 3.5 2.1 - 4.1 cm AV Mean PG 9.0 mmHg FS 2D 33.7 % AV Peak Jamel 2.0 m/sec LVPWd 2D 0.8 0.6 - 1.1 cm AV Peak PG 16.0 mmHg IVSd 2D 0.7 0.6 - 1.1 cm AV VTI 37.3 cm IVS/LVPW 2D 0.9 LVOT Mean Jamel 0.9 m/sec AoR Diam 2D 2.5 2.0 - 3.7 cm LVOT Mean PG 4.0 mmHg LA/Ao 2D 1 0 - 1 LVOT Peak Jamel 1.4 m/sec EDV 2D 145.0 cm3 LVOT Peak PG 8.0 mmHg ESV 2D 42.1 cm3 LVOT VTI 22.8 cm LA Dimen 2D 3.5 2.3 - 4.0 cm MV E Peak Jamel 0.8 m/sec MV A Peak Jamel 0.9 m/sec MV E/A 0.9 MV Decel Time 116 msec MV E/A 0.9 TR Peak Jamel 2.6 m/sec TR Peak PG 27.0 mmHg RVSP 35.0 mmHg Findings Left Ventricle: Normal left ventricular systolic function. Normal left ventricular cavity size. Normal left ventricular wall thickness. Ejection fraction is visually estimated at 55 %. Right Ventricle: Normal right ventricular size. Normal right ventricular systolic function. Left Atrium: The left atrium is normal in size. Right Atrium: The right atrium is normal in size. Mitral Valve: Mitral valve leaflets appear mildly thickened. Mild mitral annular calcification. Trace mitral regurgitation. Aortic Valve: No significant aortic stenosis or insufficiency. Aortic sclerosis without stenosis. Aortic cusps appear mildly calcified. Tricuspid Valve: Normal appearance of the tricuspid valve. Estimated peak PA systolic pressure 35 mmHg. There is mild tricuspid regurgitation. Pulmonic Valve: Normal pulmonic valve appearance. There is trace pulmonic regurgitation. Pericardium: Normal pericardium with no significant pericardial effusion. Aorta: Normal aortic root. IVC: Normal size and no respiratory collapse consistent with elevated right atrial pressure. Conclusions 1.Normal left ventricular systolic function. Normal left ventricular cavity size. Normal left ventricular wall thickness. Ejection fraction is visually estimated at 55 %. 2.Mitral valve leaflets appear mildly thickened. Mild mitral annular calcification. Trace mitral regurgitation. 3.No significant aortic stenosis or insufficiency. Aortic sclerosis without stenosis. Aortic cusps appear mildly calcified. 4.Normal appearance of the tricuspid valve. Estimated peak PA systolic pressure 35 mmHg. There is mild tricuspid regurgitation. Electronically Signed By: Colby Resendiz 31-Dec-2016 15:05:41 -0700 Patient Name: GODWIN MCCANN Study Date: 31-Dec-2016 [id number]
--- NOTE | 2016-12-31 16:39 | CONS ---
DATE OF ADMISSION: 12/29/2016 DATE OF CONSULTATION: 12/31/2016 REASON FOR CONSULTATION: Tachycardia. CHIEF COMPLAINT: Coffee ground emesis. HISTORY OF PRESENT ILLNESS: Thank you for the referral of this patient who is a poor historian. Hi story is from review of the chart, discussion with the staff and physicians. This is a 36-year-old female with history of alcohol use who came to emergency room with complaint of melena and dark stoo ls. She has been having this over the past 2 days. The patient was noted to have esophageal varice s on EGD. The patient has also been severely anemic and severely thrombocytopenic. The patient has been using alcohol as well. She has been in sinus tachycardia with episode of heart rate going as high as 170 for which I was kindly asked to evaluate. At that time, apparently the patient was montez alfaro. Denies any palpitation to me. Denies any chest pain and rhythm strip was reviewed. Remains in sinus tachycardia, no significant ST-T noted. PAST MEDICAL HISTORY: History of heavy alcohol use, history of possibly GI bleed in the past. SOCIAL HISTORY: The patient does not smoke. Denies any drug abuse. Does use heavy alcohol. FAMILY HISTORY: Denies any family history of early coronary artery disease. SURGICAL HISTORY: The patient had an EGD done in the past as well. ALLERGIES: NO KNOWN DRUG ALLERGY. MEDICATIONS: As per reconciliation sheet. REVIEW OF SYSTEMS: As above mentioned, denied all other. PHYSICAL EXAMINATION: VITAL SIGNS: Temperature 98.4, heart rate of 120, blood pressure 110/68, respiration rate of 20, sa turating 96%. HEENT: Normocephalic, atraumatic. Pupils are equal. CARDIOVASCULAR: Tachycardic. PULMONARY: No wheezes. GASTROINTESTINAL: Soft. No rebound or guarding. EXTREMITIES: With no edema. NEUROLOGIC: Awake, alert and oriented. PSYCHIATRIC: Anxious mood. HEMATOLOGIC: There is no active bleeding at this point. LABORATORY: Sodium 135, potassium 3.4, BUN of less than 2, creatinine 0.43, glucose of 85. Magnesi um is 1.5, BUN 3, ALT of 107, albumin is 2.7. TSH is 0.25. Free T4 is 1.28. test was ne gative. Echocardiogram was personally reviewed, which shows ejection fraction of about 35%. ASSESSMENT AND PLAN: 1. Gastrointestinal bleed. 2. Esophageal varices. 3. Severe thrombocytopenia. 4. Sinus tachycardia secondary to above with dehydration and anemia. 5. Anemia. 6. History of alcohol abuse. 7. Elevated LFTs. 8. Anemia. 9. Leukopenia, pancytopenia. 10. Electrolyte abnormality with hypomagnesemia and hypokalemia. RECOMMENDATIONS: Electrolytes will be corrected with extra dose of magnesium. IV fluid as per inte rnal medicine. GI workup and treatment as per internal medicine. GI recommendation. No further ca rdiac workup would be necessary as long as he remains in sinus tachycardia and no significant ST paulino vation. Dictated By: NASRIN BRAVO/OLINDA Conf#: [id number] DID#: [id number]
--- NOTE | 2016-12-31 16:42 | CONS ---
Date/Time of Note Date/Time of Note DATE: 12/31/16 TIME: 16:32 Assessment/Plan Assessment/Plan Chief Complaint/Hosp Course 36yo female alcoholic admitted with pancytopenia secondary to alcoholic cirrhosis and acute effects of alcohol toxicity on the bone marrow. # Coagulopathy- secondary to liver disease -s/p 1 dose of Vitamin K 10mg SQ. -will given 1 dose of Vitamin K 1mg IV as thsi is better absorbed than subq vitamin K in patient with cirrhosis -pt with low grade DIC with borderline low fibrinogen. if fibrinogen drops below 120 will given cryoprecipitate. #Neutropenia- neutropenia sec to liver disease -follow signs of infection. -if ANC is lower than 500 may consider growth factors. # Thrombocytopenia - severe thrombocytopenia secondary to etoh and liver disease, and continue transfusion because of GIB. will try to keep platelets > 20 -no evidence of TTP or hemolysis #Acute GI bleeding -s/p EGD that demonstrated esophageal varices grade II-IV as well as hemorrhagic gastritis #Acute alcohol intoxication - primary reason for pancytopenia and strongly recommends stopping etoh. Problems: Consultation Date/Type/Reason Admit Date/Time Dec 29, 2016 at 09:40 Initial Consult Date 12/30/16 Type of Consultation: Hematology Reason for Consultation pancytopenia Referring Provider: DENAE ORTIZ NP 24 HR Interval Summary Free Text/Dictation no bleeding overnight. EGD demonstrated esophageal varices Exam/Review of Systems Vital Signs Vitals Vital Signs Date Time Temp Pulse Resp B/P Pulse Ox O2 Delivery O2 Flow Rate FiO2 12/31/16 16:06 100 12/31/16 16:05 98.7 20 129/66 99 12/29/16 14:10 Room Air Intake and Output 12/30/16 12/30/16 12/31/16 15:00 23:00 07:00 Intake Total 700 ml 500 ml Balance 700 ml 500 ml Exam Constitutional: alert, oriented Psych: depression, no complaints ENMT: nl external ears & nose, nl lips & teeth Neck: non-tender, supple Respiratory: clear to auscultation, normal air movement Cardiovascular: nl pulses, regular rate and rhythm Gastrointestinal: other (epigastric tenderness) Musculoskeletal: nl extremities to inspection, nl gait and stance Extremities: normal pulses Results Result Diagram: 12/31/16 1211 12/31/16 0652 Results 24 hrs Laboratory Tests Test 12/30/16 18:18 12/31/16 00:25 12/31/16 06:52 12/31/16 12:11 Hematocrit 22.7 L 23.4 L 25.1 L 25.5 L Hemoglobin 7.8 L 8.1 L 8.4 L 8.4 L Alanine Aminotransferase (ALT/SGPT) 29 Albumin 2.7 L Albumin/Globulin Ratio 0.69 Alkaline Phosphatase 105 Ammonia 44 H Anion Gap 11 Aspartate Amino Transf (AST/SGOT) 107 H Band Neutrophils % 1.0 Blood Urea Nitrogen < 2 L Calcium Level 7.6 L Carbon Dioxide Level 26 Chloride Level 101 Creatinine 0.43 L Direct Bilirubin 0.90 #H Globulin 3.90 H Glucose Level 85 Indirect Bilirubin 2.1 H Lymphocytes # 0.8 Lymphocytes % 28.0 Magnesium Level 1.5 L Mean Corpuscular Hemoglobin 33.5 H Mean Corpuscular Hemoglobin Concent 33.5 Mean Corpuscular Volume 100.0 Mean Platelet Volume 11.9 H Metamyelocytes # 0.0 Metamyelocytes % 1.0 H Monocytes # 0.0 L Monocytes % 1.0 Myelocytes # 0.1 Myelocytes % 2.0 H Neutrophils # 1.8 Neutrophils % 67.0 Phosphorus Level 1.8 L Platelet Count 23 #*L Potassium Level 3.4 L Red Blood Count 2.51 L Red Cell Distribution Width 17.5 H Sodium Level 135 Total Bilirubin 3.0 H Total Protein 6.6 White Blood Count 2.7 #L Test 12/31/16 12:55 Urine Amphetamines Screen Negative Urine Barbiturates Negative Urine Benzodiazepines Screen Negative Urine Cannabinoids Negative Urine Cocaine Screen Negative Urine Opiates Screen Positive Medications Medications Current Medications Potassium Chloride/Sodium Chloride (NS-KCl 20 Meq) 1,000 ml @ 100 mls/hr Q10H IV Last administered on 12/31/16 05:22; Admin Dose 100 MLS/HR; Start 12/29/16 at 05:45 Lorazepam (Ativan) 0.5 mg Q8H PRN PO ANXIETY Last administered on 12/31/16 02: 24; Admin Dose 0.5 MG; Start 12/29/16 at 06:00 Ondansetron HCl (Zofran Tab) 4 mg Q6H PRN PO NAUSEA AND/OR VOMITING Last administered on 12/30/16 12:15; Admin Dose 4 MG; Start 12/29/16 at 06:00 Sucralfate (Carafate Susp) 1 gm QID PO Last administered on 12/31/16 12:54; Admin Dose 1 GM; Start 12/29/16 at 17:00 Tramadol HCl (Ultram) 50 mg Q6H PRN PO Pain Last administered on 12/30/16 09: 28; Admin Dose 50 MG; Start 12/29/16 at 14:30 Zolpidem Tartrate 5 mg 5 mg HS PRN PO INSOMNIA Last administered on 12/30/16 22:08; Admin Dose 5 MG; Start 12/30/16 at 02:00 Pantoprazole/ Sodium Chloride (Protonix Iv/NS) 100 ml @ 10 mls/hr Q10H IV Last administered on 12/31/16 08:48; Admin Dose 10 MLS/HR; Start 12/30/16 at 12 :30 Ondansetron HCl (Zofran Inj) 4 mg Q4H PRN IV NAUSEA AND/OR VOMITING Last administered on 12/30/16 13:53; Admin Dose 4 MG; Start 12/30/16 at 13:00 Morphine Sulfate (morphine) 2 mg Q4H PRN IV Pain Last administered on 11:06; Admin Dose 2 MG; Start 12/30/16 at 13:00 Metoclopramide HCl 10 mg 10 mg Q4H PRN IV Nausea/Vomiting Last administered on 12/30/16 13:21; Admin Dose 10 MG; Start 12/30/16 at 13:30 Magnesium Sulfate (Magnesium Sulfate 2 Gm/50 ml) 50 ml @ 25 mls/hr ONCE ONCE IVPB ; Start 12/31/16 at 16:00; Stop 12/31/16 at 17:59 ALONDRA KNOWLES M.D. Dec 31, 2016 16:42
--- NOTE | 2016-12-31 17:16 | PN ---
Date/Time of Note Date/Time of Note DATE: 12/31/16 TIME: 17:13 Assessment/Plan VTE Prophylaxis VTE Prophylaxis Intervention: SCD's Lines/Catheters IV C[facility]ter Type (from [facility]): Peripheral IV Assessment/Plan Chief Complaint/Hosp Course Assessment and plan 1. Symptomatically anemia. Likely secondary to acute blood loss. Patient noted with hepatic insufficiency. Patient status post multiple blood transfusion. Hematology is following. Still with pancytopenia. Continue recommendations. 2. Pancytopenia secondary to alcohol abuse. Plan for platelet transfusion. Monitor for signs of bleeding. 3. Hyperbilirubinemia with transaminitis. GI following. Likely secondary to alcohol abuse. Cessation advised 4. Acute alcoholic intoxication. Will provide with benzo as needed for withdrawal. Improving at present. Alcohol cessation advised Disposition and plan: Still noted with pancytopenia. Continue hematology recommendations. Plan for platelet transfusion. Discharge when medically stable and cleared by consultants Discussed plan of care with Dr. Moses Problems: Subjective 24 Hr Interval Summary Free Text/Dictation still with noted nosebleed. no other specific complaints Exam/Review of Systems Vital Signs Vitals Vital Signs Date Time Temp Pulse Resp B/P Pulse Ox O2 Delivery O2 Flow Rate FiO2 12/31/16 16:06 100 12/31/16 16:05 98.7 20 129/66 99 12/29/16 14:10 Room Air Intake and Output 12/30/16 12/30/16 12/31/16 14:59 22:59 06:59 Intake Total 700 ml 500 ml Balance 700 ml 500 ml Exam Constitutional: alert, oriented Psych: nl mood/affect Head: normocephalic Eyes: nl conjunctiva Neck: supple, non-tender, No jvd Respiratory: clear to auscultation, normal air movement Cardiovascular: regular rate and rhythm Gastrointestinal: soft, non-tender Musculoskeletal: nl extremities to inspection, nl gait and stance Extremities: normal pulses Neurological: nl mental status, nl speech, nl strength Skin: nl turgor, No rash or lesions Results Result Diagram: 12/31/16 1211 12/31/16 0652 Results 24 hrs Laboratory Tests Test 12/30/16 18:18 12/31/16 00:25 12/31/16 06:52 12/31/16 12:11 Hematocrit 22.7 L 23.4 L 25.1 L 25.5 L Hemoglobin 7.8 L 8.1 L 8.4 L 8.4 L Alanine Aminotransferase (ALT/SGPT) 29 Albumin 2.7 L Albumin/Globulin Ratio 0.69 Alkaline Phosphatase 105 Ammonia 44 H Anion Gap 11 Aspartate Amino Transf (AST/SGOT) 107 H Band Neutrophils % 1.0 Blood Urea Nitrogen < 2 L Calcium Level 7.6 L Carbon Dioxide Level 26 Chloride Level 101 Creatinine 0.43 L Direct Bilirubin 0.90 #H Globulin 3.90 H Glucose Level 85 Indirect Bilirubin 2.1 H Lymphocytes # 0.8 Lymphocytes % 28.0 Magnesium Level 1.5 L Mean Corpuscular Hemoglobin 33.5 H Mean Corpuscular Hemoglobin Concent 33.5 Mean Corpuscular Volume 100.0 Mean Platelet Volume 11.9 H Metamyelocytes # 0.0 Metamyelocytes % 1.0 H Monocytes # 0.0 L Monocytes % 1.0 Myelocytes # 0.1 Myelocytes % 2.0 H Neutrophils # 1.8 Neutrophils % 67.0 Phosphorus Level 1.8 L Platelet Count 23 #*L Potassium Level 3.4 L Red Blood Count 2.51 L Red Cell Distribution Width 17.5 H Sodium Level 135 Total Bilirubin 3.0 H Total Protein 6.6 White Blood Count 2.7 #L Test 12/31/16 12:55 Urine Amphetamines Screen Negative Urine Barbiturates Negative Urine Benzodiazepines Screen Negative Urine Cannabinoids Negative Urine Cocaine Screen Negative Urine Opiates Screen Positive Medications Medications Current Medications Potassium Chloride/Sodium Chloride (NS-KCl 20 Meq) 1,000 ml @ 100 mls/hr Q10H IV Last administered on 12/31/16 05:22; Admin Dose 100 MLS/HR; Start 12/29/16 at 05:45 Lorazepam (Ativan) 0.5 mg Q8H PRN PO ANXIETY Last administered on 12/31/16 02: 24; Admin Dose 0.5 MG; Start 12/29/16 at 06:00 Ondansetron HCl (Zofran Tab) 4 mg Q6H PRN PO NAUSEA AND/OR VOMITING Last administered on 12/30/16 12:15; Admin Dose 4 MG; Start 12/29/16 at 06:00 Sucralfate (Carafate Susp) 1 gm QID PO Last administered on 12/31/16 12:54; Admin Dose 1 GM; Start 12/29/16 at 17:00 Tramadol HCl (Ultram) 50 mg Q6H PRN PO Pain Last administered on 12/30/16 09: 28; Admin Dose 50 MG; Start 12/29/16 at 14:30 Zolpidem Tartrate 5 mg 5 mg HS PRN PO INSOMNIA Last administered on 12/30/16 22:08; Admin Dose 5 MG; Start 12/30/16 at 02:00 Pantoprazole/ Sodium Chloride (Protonix Iv/NS) 100 ml @ 10 mls/hr Q10H IV Last administered on 12/31/16 08:48; Admin Dose 10 MLS/HR; Start 12/30/16 at 12 :30 Ondansetron HCl (Zofran Inj) 4 mg Q4H PRN IV NAUSEA AND/OR VOMITING Last administered on 12/30/16 13:53; Admin Dose 4 MG; Start 12/30/16 at 13:00 Morphine Sulfate (morphine) 2 mg Q4H PRN IV Pain Last administered on 11:06; Admin Dose 2 MG; Start 12/30/16 at 13:00 Metoclopramide HCl 10 mg 10 mg Q4H PRN IV Nausea/Vomiting Last administered on 12/30/16 13:21; Admin Dose 10 MG; Start 12/30/16 at 13:30 Magnesium Sulfate 50 ml @ 25 mls/hr ONCE ONCE IVPB Last administered on 16:32; Admin Dose 25 MLS/HR; Start 12/31/16 at 16:00; Stop 12/31/16 at 17: 59 Phytonadione/ Dextrose (Vitamin K/D5W) 50.1 ml @ 100.2 mls/ hr ONCE ONCE IVPB ; Start 12/31/16 at 18:30; Stop 12/31/16 at 18:59 JULIO SHARIF Dec 31, 2016 17:16
[2016-12-31] MEDS ORDERED: PHYTONADIONE 1 MG in DEXTROSE 5% 50 ML IVPB ONE (18:30)
[2016-12-31 18:40] LABS: HEMOGLOBIN 7.2 g/dl (12.0-16.0)
[2016-12-31] MEDS: ZOLPIDEM 5 MG TAB PO PRN (20:55)
[2017-01-01] VITALS (8 sets, daily range): BP systolic 105–116; BP diastolic 52–64; PULSE 92–119; RESP 17–20
[2017-01-01 01:22] LABS: HEMOGLOBIN 6.6 g/dl (12.0-16.0)
[2017-01-01] MEDS: PANTOPRAZOLE IV 80 MG in SOD CHLORIDE 0.9% 100 ML IV SCH (05:00)
[2017-01-01 06:50] LABS: HEMATOCRIT 23.6 % (37.0-47.0); HEMOGLOBIN 7.8 g/dl (12.0-16.0)
[2017-01-01 09:27] LABS: ADD SCAN DIFF NO
[2017-01-01 09:33] LABS: ABNORMAL IP MESSAGE 1; BASOPHILS % 0.4 % (0.0-2.0); EOSINOPHILS # 0.1 10^3/ul (0.0-0.5); EOSINOPHILS % 2.2 % (0.0-7.0); HEMATOCRIT 24.3 % (37.0-47.0); LYMPHOCYTES # 0.7 10^3/ul (0.8-2.9); LYMPHOCYTES % 26.5 % (15.0-51.0); MEAN CORPUSCULAR HEMOGLOBIN 32.7 pg (29.0-33.0); MEAN CORPUSCULAR HGB CONC 32.9 g/dl (32.0-37.0); MEAN CORPUSCULAR VOLUME 99.2 fl (82.0-101.0); MEAN PLATELET VOLUME 12.3 fl (7.4-10.4); MONOCYTE # 0.4 10^3/ul (0.3-0.9); NEUTROPHIL # 1.6 10^3/ul (1.6-7.5); NEUTROPHILS % 56.9 % (39.0-77.0); RED BLOOD COUNT 2.45 10^6/ul (4.20-5.40); RED CELL DISTRIBUTION WIDTH 18.1 % (11.5-14.5); WHITE BLOOD COUNT 2.7 10^3/ul (4.8-10.8)
[2017-01-01 09:36] LABS: PLATELET COUNT 28 10^3/UL (140-415)
--- NOTE | 2017-01-01 10:01 | PN ---
DATE: 01/01/2017 CARDIOLOGY FOLLOWUP SUBJECTIVE: Discussed with the staff. Rhythm strip was reviewed. The patient remains in sinus rhy thm, sinus tachycardia. No chest pain or pressure. Denies any bleeding except for her menstrual bl eed, which she says that she was due to have. MEDICATIONS: Reviewed. PHYSICAL EXAMINATION: VITAL SIGNS: Temperature 99, heart rate of 82, blood pressure 107/56, respiration rate of 20, satur ating 98%. HEENT: Normocephalic, atraumatic. No acute distress. Pupils are equal. CARDIOVASCULAR: Regular rate and rhythm, systolic murmur. PULMONARY: No wheezes heard, no rhonchi. GASTROINTESTINAL: Soft, nontender. EXTREMITIES: With trivial edema. NEUROLOGIC: Awake and alert. PSYCHIATRIC: Calm now. LABORATORY: Hemoglobin has been as low as 6.6 last night and this morning 7.8. ASSESSMENT AND PLAN: 1. Tachycardia, appears to be sinus tachycardia secondary to severe anemia. 2. Gastrointestinal bleed. 3. Esophageal varices. 4. Thrombocytopenia. 5. Anemia. 6. History of alcohol abuse. 7. Elevated LFTs. 8. Pancytopenia with leukopenia, anemia and thrombocytopenia. 9. Electrolyte abnormalities. RECOMMENDATIONS: Correct electrolytes as needed. Transfusion will be deferred to internal medicine and GI recommendations. Follow up with GI recommendations. Dictated By: NASRIN BRAVO/OLINDA Conf#: [id number] DID#: [id number] CC: JULIO SHARIF SALES MERCHANDISING SPECIALIST;*EndCC*
[2017-01-01] MEDS: SUCRALFATE (100 MG/ML) 10ML CUP PO SCH (10:04)
--- NOTE | 2017-01-01 10:55 | CONS ---
Date/Time of Note Date/Time of Note DATE: 01/01/17 TIME: 10:46 Assessment/Plan Assessment/Plan Chief Complaint/Hosp Course Ms. Ynes Lamb is a 36-year-old female patient w that presented to the ED with complaints of epigastric abdominal pain and hematemesis 2 days. She denies fever, chills, and diarrhea. Pt had previous EGD with Dr. Salazar November 28 that noted 1. Grade I/IV esophageal varices of no clinical significance. 2. Distal esophagitis, moderate. And 3. Hemorrhagic alcoholic gastritis. Patient was DC'd with PPI as she reports she currently takes. Patient reports last alcohol use 2 days ago. At bedside, NG tube inserted to low intermittent suction with bloody discharge. Patient consents to EGD. Patient advised of risks/benefits/alternatives to procedure and she provides informed consent to proceed. Problems: Additional Assessment/Plan Acute anemia Monitor H&H every 8 hours, transfuse 2 units for hemoglobin less than 7.5 Monitor labs Continue PPI drips EGD: 1. Grade I/IV esophageal varices. 2. Distal esophagitis. 3. Severe hemorrhagic gastritis. 4. Duodenitis. Pancytopenia Likely secondary secondary to alcohol abuse. HemeOnc following Hyperbilirubinemia with transaminitis. Hepatitis panel negative Likely secondary secondary to alcohol abuse. EtOH abuse Management per Primary Recommend abstinence Recommend social work consult Further recommendations depend on clinical course Patient seen in collaboration with Dr. Salazar Consultation Date/Type/Reason Admit Date/Time Dec 29, 2016 at 09:40 Type of Consultation: Hematology Referring Provider: DENAE ORTIZ NP 24 HR Interval Summary Free Text/Dictation Hemoglobin stable Tolerating diet Exam/Review of Systems Vital Signs Vitals Vital Signs Date Time Temp Pulse Resp B/P Pulse Ox O2 Delivery O2 Flow Rate FiO2 01/01/17 08:34 119 01/01/17 07:41 99.0 20 107/56 98 01/01/17 04:31 Room Air Intake and Output 12/31/16 12/31/16 01/01/17 15:00 23:00 07:00 Intake Total 2060 ml 1475 ml Balance 2060 ml 1475 ml Results Result Diagram: 01/01/17 0710 12/31/16 0652 Results 24 hrs Laboratory Tests Test 12/31/16 12:11 12/31/16 12:55 12/31/16 17:59 01/01/17 00:42 Hematocrit 25.5 L 22.0 L 20.0 L Hemoglobin 8.4 L 7.2 L 6.6 *L Urine Amphetamines Screen Negative Urine Barbiturates Negative Urine Benzodiazepines Screen Negative Urine Cannabinoids Negative Urine Cocaine Screen Negative Urine Opiates Screen Positive Test 01/01/17 06:25 01/01/17 07:10 Hematocrit 23.6 L 24.3 L Hemoglobin 7.8 L 8.0 L Basophils # 0.0 Basophils % 0.4 Eosinophils # 0.1 Eosinophils % 2.2 Lymphocytes # 0.7 L Lymphocytes % 26.5 Mean Corpuscular Hemoglobin 32.7 Mean Corpuscular Hemoglobin Concent 32.9 Mean Corpuscular Volume 99.2 Mean Platelet Volume 12.3 H Monocytes # 0.4 Monocytes % 14.0 H Neutrophils # 1.6 Neutrophils % 56.9 Nucleated Red Blood Cells # 0.0 Nucleated Red Blood Cells % 0.0 Platelet Count 28 #*L Red Blood Count 2.45 L Red Cell Distribution Width 18.1 H White Blood Count 2.7 L Medications Medications Current Medications Potassium Chloride/Sodium Chloride (NS-KCl 20 Meq) 1,000 ml @ 100 mls/hr Q10H IV Last administered on 12/31/16 20:55; Admin Dose 100 MLS/HR; Start 12/29/16 at 05:45 Lorazepam (Ativan) 0.5 mg Q8H PRN PO ANXIETY Last administered on 12/31/16 02: 24; Admin Dose 0.5 MG; Start 12/29/16 at 06:00 Ondansetron HCl (Zofran Tab) 4 mg Q6H PRN PO NAUSEA AND/OR VOMITING Last administered on 12/30/16 12:15; Admin Dose 4 MG; Start 12/29/16 at 06:00 Sucralfate (Carafate Susp) 1 gm QID PO Last administered on 01/01/17 10:04; Admin Dose 1 GM; Start 12/29/16 at 17:00 Tramadol HCl (Ultram) 50 mg Q6H PRN PO Pain Last administered on 12/30/16 09: 28; Admin Dose 50 MG; Start 12/29/16 at 14:30 Zolpidem Tartrate 5 mg 5 mg HS PRN PO INSOMNIA Last administered on 12/31/16 20:55; Admin Dose 5 MG; Start 12/30/16 at 02:00 Pantoprazole/ Sodium Chloride (Protonix Iv/NS) 100 ml @ 10 mls/hr Q10H IV Last administered on 01/01/17 05:00; Admin Dose 10 MLS/HR; Start 12/30/16 at 12 :30 Ondansetron HCl (Zofran Inj) 4 mg Q4H PRN IV NAUSEA AND/OR VOMITING Last administered on 12/30/16 13:53; Admin Dose 4 MG; Start 12/30/16 at 13:00 Morphine Sulfate (morphine) 2 mg Q4H PRN IV Pain Last administered on 11:06; Admin Dose 2 MG; Start 12/30/16 at 13:00 Metoclopramide HCl (Reglan) 10 mg Q4H PRN IV Nausea/Vomiting Last administered on 12/30/16 13:21; Admin Dose 10 MG; Start 12/30/16 at 13:30 JAMESON CARCAMO Jan 01, 2017 10:54
--- NOTE | 2017-01-01 13:37 | CONS ---
Date/Time of Note Date/Time of Note DATE: 01/01/17 TIME: 13:35 Assessment/Plan Assessment/Plan Chief Complaint/Hosp Course 36yo female alcoholic admitted with pancytopenia secondary to alcoholic cirrhosis and acute effects of alcohol toxicity on the bone marrow. # Coagulopathy- secondary to liver disease -s/p 1 dose of Vitamin K 10mg SQ. -will given 1 dose of Vitamin K 1mg IV as thsi is better absorbed than subq vitamin K in patient with cirrhosis -pt with low grade DIC with borderline low fibrinogen. if fibrinogen drops below 120 will given cryoprecipitate. #Neutropenia- neutropenia sec to liver disease -follow signs of infection. -if ANC is lower than 500 may consider growth factors. # Thrombocytopenia - severe thrombocytopenia secondary to etoh and liver disease, and continue transfusion because of GIB. will try to keep platelets > 20 -no evidence of TTP or hemolysis #Acute GI bleeding -s/p EGD that demonstrated esophageal varices grade II-IV as well as hemorrhagic gastritis #Acute alcohol intoxication - primary reason for pancytopenia and strongly recommends stopping etoh. Problems: Consultation Date/Type/Reason Admit Date/Time Dec 29, 2016 at 09:40 Initial Consult Date 12/30/16 Type of Consultation: Hematology Reason for Consultation pancytopenia Referring Provider: DENAE ORTIZ NP 24 HR Interval Summary Free Text/Dictation no obvious bleeding currently. Hg stable from yesterday Exam/Review of Systems Vital Signs Vitals Vital Signs Date Time Temp Pulse Resp B/P Pulse Ox O2 Delivery O2 Flow Rate FiO2 01/01/17 11:43 98.5 84 20 116/59 100 01/01/17 04:31 Room Air Intake and Output 12/31/16 12/31/16 01/01/17 15:00 23:00 07:00 Intake Total 2060 ml 1475 ml Balance 2060 ml 1475 ml Exam Constitutional: alert, oriented Psych: no complaints Head: atraumatic, normocephalic Eyes: nl conjunctiva ENMT: nl external ears & nose Neck: non-tender, supple Respiratory: clear to auscultation, normal air movement Cardiovascular: regular rate and rhythm Gastrointestinal: soft Musculoskeletal: nl extremities to inspection, nl gait and stance Results Result Diagram: 01/01/17 0710 12/31/16 0652 Results 24 hrs Laboratory Tests Test 12/31/16 17:59 01/01/17 00:42 01/01/17 06:25 01/01/17 07:10 Hematocrit 22.0 L 20.0 L 23.6 L 24.3 L Hemoglobin 7.2 L 6.6 *L 7.8 L 8.0 L Basophils # 0.0 Basophils % 0.4 Eosinophils # 0.1 Eosinophils % 2.2 Lymphocytes # 0.7 L Lymphocytes % 26.5 Mean Corpuscular Hemoglobin 32.7 Mean Corpuscular Hemoglobin Concent 32.9 Mean Corpuscular Volume 99.2 Mean Platelet Volume 12.3 H Monocytes # 0.4 Monocytes % 14.0 H Neutrophils # 1.6 Neutrophils % 56.9 Nucleated Red Blood Cells # 0.0 Nucleated Red Blood Cells % 0.0 Platelet Count 28 #*L Red Blood Count 2.45 L Red Cell Distribution Width 18.1 H White Blood Count 2.7 L Medications Medications Current Medications Potassium Chloride/Sodium Chloride (NS-KCl 20 Meq) 1,000 ml @ 100 mls/hr Q10H IV Last administered on 12/31/16 20:55; Admin Dose 100 MLS/HR; Start 12/29/16 at 05:45 Lorazepam (Ativan) 0.5 mg Q8H PRN PO ANXIETY Last administered on 12/31/16 02: 24; Admin Dose 0.5 MG; Start 12/29/16 at 06:00 Ondansetron HCl (Zofran Tab) 4 mg Q6H PRN PO NAUSEA AND/OR VOMITING Last administered on 12/30/16 12:15; Admin Dose 4 MG; Start 12/29/16 at 06:00 Sucralfate (Carafate Susp) 1 gm QID PO Last administered on 01/01/17 10:04; Admin Dose 1 GM; Start 12/29/16 at 17:00 Tramadol HCl (Ultram) 50 mg Q6H PRN PO Pain Last administered on 12/30/16 09: 28; Admin Dose 50 MG; Start 12/29/16 at 14:30 Zolpidem Tartrate 5 mg 5 mg HS PRN PO INSOMNIA Last administered on 12/31/16 20:55; Admin Dose 5 MG; Start 12/30/16 at 02:00 Pantoprazole/ Sodium Chloride (Protonix Iv/NS) 100 ml @ 10 mls/hr Q10H IV Last administered on 01/01/17 05:00; Admin Dose 10 MLS/HR; Start 12/30/16 at 12 :30 Ondansetron HCl (Zofran Inj) 4 mg Q4H PRN IV NAUSEA AND/OR VOMITING Last administered on 12/30/16 13:53; Admin Dose 4 MG; Start 12/30/16 at 13:00 Morphine Sulfate (morphine) 2 mg Q4H PRN IV Pain Last administered on 11:06; Admin Dose 2 MG; Start 12/30/16 at 13:00 Metoclopramide HCl (Reglan) 10 mg Q4H PRN IV Nausea/Vomiting Last administered on 12/30/16 13:21; Admin Dose 10 MG; Start 12/30/16 at 13:30 ALONDRA KNOWLES M.D. Jan 01, 2017 13:37
== END 2017-01-01 17:05 | disposition left against medical advice (07) | DRG 378 ==
LOC: E/R 02:24 → MS4 09:40
PROVIDERS: ADMIT Family Medicine; ATTEND Family Medicine
PROC: 0D9670Z Drainage of Stomach with Drainage Device, Via Natural or Artificial Opening (ICD-10-PCS; 2016-12-29)
PROC: 30233N1 Transfusion of Nonautologous Red Blood Cells into Peripheral Vein, Percutaneous Approach (ICD-10-PCS; 2016-12-29)
PROC: 30233R1 Transfusion of Nonautologous Platelets into Peripheral Vein, Percutaneous Approach (ICD-10-PCS; 2016-12-29)
PROC: 0DJ08ZZ Inspection of Upper Intestinal Tract, Via Natural or Artificial Opening Endoscopic (ICD-10-PCS; principal; 2016-12-29 12:00)
DX: K29.21 Alcoholic gastritis with bleeding (principal); D61.818 Other pancytopenia; D68.4 Acquired coagulation factor deficiency; D62 Acute posthemorrhagic anemia; F10.229 Alcohol dependence with intoxication, unspecified; Y90.8 Blood alcohol level of 240 mg/100 ml or more; I85.00 Esophageal varices without bleeding; K20.9 Esophagitis, unspecified; K29.80 Duodenitis without bleeding; K70.30 Alcoholic cirrhosis of liver without ascites; E87.8 Other disorders of electrolyte and fluid balance, not elsewhere classified; R74.0 Nonspecific elevation of levels of transaminase and lactic acid dehydrogenase [LDH]; R94.5 Abnormal results of liver function studies; R00.0 Tachycardia, unspecified; Z87.891 Personal history of nicotine dependence
CPT/HCPCS: 36415; 36430; 74177; 80053; 80061; 80306; 80307; 82140; 82150; 83036; 83615; 83690; 83735; 84100; 84439; 84443; 84703; 85014; 85018; 85025; 85049; 85362; 85378; 85384; 85610; 85670; 85730; 86644; 86703; 86850; 86900; 86901; 86920; 86945; 93306; 96374; 96375; 96376; C9113; J2250; J2270; J2354; J2405; J2765; J3010; J3475; J3480; J7030; J7050; P9016; P9035; Q9967

== ENCOUNTER 2018-12-22 16:39 | Inpatient (IN) | payer BC ==
[~2018-12-22] VITALS: Ht 160 cm; Wt 71.2 kg
[2018-12-22 21:55] VITALS: Ht 160 cm; Wt 71.2 kg
[2018-12-22 22:00] VITALS: PULSE 79
[2018-12-22 22:27] VITALS: BP 106/70; RESP 18
[2018-12-22] MEDS ORDERED: SOD CHLORIDE 0.9% 1,000 ML IV SCH (22:39)
--- NOTE | 2018-12-22 22:44 | HP ---
Date/Time of Note Date/Time of Note DATE: 12/22/18 TIME: 22:44 Assessment/Plan VTE Prophylaxis SCD applied (from [facility]): Yes Pharmacological prophylaxis: NA/contraindicated Pharm contraindication: low risk/ambulating Lines/Catheters Urinary Cath still in place: No Assessment/Plan Hospital Course This is a 38-year-old female being admitted to the telemetry floor for: #1 acute on chronic GI bleed: Secondary likely to bleeding esophageal varices. Will check stat H&H. Patient's previous hemoglobin was 6.9 at the transferring facility and she did receive 1 unit of PRBC. Will check platelet count as well. Transfuse as indicated with goal hemoglobin greater than 7.5 and platelets greater than 50 given the fact that she has bleeding. Octreotide drip and Protonix drip. Will check CBC every 6 hours. We will keep the patient n.p.o. except meds. Gentle IV hydration with normal saline. Will consult GIs . Propranolol IV. Will check iron stores #2 acute on chronic decompensated alcoholic cirrhosis: Bilirubin 3.6 with elevated coags. Patient has a fulminant score of approximately 57. Consider prednisolone if indicated. Continue spironolactone. Consult GI. Coags daily. Prophylactic ceftriaxone 1 g every 24 hours. Will check a right upper quadrant ultrasound. paracentesis when coags improve #3 supratherapeutic INR: Secondary to underlying decompensated cirrhosis. Given patient's bleeding will give a dose of vitamin K 10 mg IV x1. Check coags daily #4 thrombocytopenia: Secondary to underlying decompensated cirrhosis: We will check stat platelets, transfuse as indicated to keep platelets above 50. #5 microcytic anemia: Secondary to decompensated alcoholic cirrhosis and esoph ageal varices. Treat as per #1. Will check iron stores. #6 EtOH abuse: Patient had a blood alcohol level of approximately 380 at the transferring facility. Will check an ethanol level. PRN Ativan for withdrawal symptoms. Librium taper. Encourage cessation. #7 DVT GI prophylaxis: SCDs, Protonix drip Further treatment strategy will be implemented as per the clinical course HPI/ROS Admit Date/Time Admit Date/Time Dec 22, 2018 at 21:39 Hx of Present Illness Chief complaint: Hematemesis, dark stool This is a 38-year-old female who was transferred from outside hospital secondary to insurance purposes for GI bleed. Patient has a history of alcoholic cirrhosis and she continues to drink. Patient reports that for the last 5 days she noticed dark stools and then 3 days ago started noticing hematemesis. Patient had her last drink approximately within the last 48 hours. She reports she is a daily alcohol drinker. She has a history of alcoholic cirrhosis. She has had banding for her esophageal varices. At the transferring facility patient was noted to have a initial hemoglobin of 8.6 which then did drop to 6.9. Patient was given 1 unit of PRBC. She also was given prophylactic ceftriaxone 1 g every 24 hours for possible SBP. Again she was transferred to [facility] secondary insurance purposes. Pertinent laboratory findings from transfer facility please see chart for full details: Hemoglobin initial 8.6 with a repeat being 6.9. Allergies: NKDA Medications: See SHUBHAM SAENZ Const: As per HPI Eyes : No pain discharge or redness or change in visual acuity ENT: No pain, sore throat, congestion, congestion, dysphagia or discharge Respiratory: No shortness of breath, cough, sputum, wheezing, or pleuritic pain Cardiovascular: No chest pain, palpitation, PND, or edema GI : As per HPI Genitourinary: No dysuria, hematuria, flank pain , discharge or CVA tenderness Musculoskeletal: No joint pain, back pain, neck pain, restricted range of motion in neck or joints Skin: No rash, bruising or hives Neuro: No headache, dizziness, syncope, seizure, focal weakness Endocrine: No polyuria, polydipsia, temperature intolerance Psych: No hallucination, depression, anxiety or suicidal ideation PMH/Family/Social Past Medical History Alcoholic cirrhosis, esophageal varices status post banding Coded Allergies: ondansetron (Verified Allergy, Intermediate, 12/23/18) Past Surgical History x3, cholecystectomy, esophageal banding, tubal ligation Family History Significant Family History: no pertinent family hx Social History Last drink approximately 48 hours ago Alcohol Use: heavy Smoking Status: Never smoker Drug Use: none Exam/Review of Systems Vital Signs Vitals Vital Signs Date Temp Pulse Resp B/P (MAP) Pulse Ox O2 O2 Flow FiO2 Time Delivery Rate 12/22/18 98.4 18 106/70 95 Room Air 22:27 (82) Exam Exam General: Patient is currently lying in bed she does appear slightly lethargic HEENT: Atraumatic, normocephalic. The pupils are equal, round and reactive. Extraocular motor are intact, scleral icterus Neck: Supple with full range of motion. No rigidity or meningismus Chest: Nontender Lungs: Clear to auscultation bilaterally no crackles rales or wheezing Heart: Normal S1-S2, Regular rhythm and rate. No murmur, S3, or S4 Abdomen: Soft , mildly distended, nontender to palpation, bowel sounds are present. No guarding no rebound tenderness , No masses or organomegaly. No costovertebral temporal angle mass Extremities: Normal to inspection, no edema no cyanosis Neurologic: Normal mental status, speech normal, cranial nerves II through XII a re intact, motor and sensory are intact, no focal weakness CORY AMOS Dec 22, 2018 22:44
[2018-12-22] MEDS ORDERED: ACETAMINOPHEN 325 MG TAB PO PRN (23:00)
[2018-12-22] MEDS ORDERED: ONDANSETRON 4 MG INJ IV PRN (23:00)
[2018-12-22] MEDS ORDERED: NACL 0.9% 3 ML SYG IV SCH (23:00)
[2018-12-22] MEDS ORDERED: SOD CHLORIDE 0.9% 250 ML IV* ONE (23:56)
[2018-12-23] VITALS (18 sets, daily range): BP systolic 112–149; BP diastolic 57–88; PULSE 58–98; RESP 16–18
[2018-12-23] MEDS ORDERED: PROPRANOLOL 1 MG INJ IV ONE (02:00)
[2018-12-23] MEDS ORDERED: LORAZEPAM 2 MG INJ IV PRN (02:30)
[2018-12-23] MEDS ORDERED: ONDANSETRON 4 MG INJ IV PRN (03:00)
[2018-12-23] MEDS: OCTREOTIDE 1 MG in DEXTROSE 5% 95 ML IV SCH ×2 (03:30→19:00)
[2018-12-23] MEDS: PANTOPRAZOLE IV 80 MG in SOD CHLORIDE 0.9% 100 ML IV SCH ×3 (03:31→19:00)
[2018-12-23] MEDS ORDERED: D5W-0.45 NACL + KCL 20 MEQ 1,000 ML IV SCH (04:30)
[2018-12-23] MEDS ORDERED: PHYTONADIONE 10 MG in DEXTROSE 5% 50 ML IVPB ONE (04:30)
[2018-12-23] MEDS: CHLORDIAZEPOXIDE 25 MG CAP PO SCH ×3 (04:43→21:30)
[2018-12-23] MEDS ORDERED: predniSOLONE (3 MG/ML PO SYG) PO SCH (09:00)
[2018-12-23] MEDS: LORAZEPAM 2 MG INJ IV PRN ×3 (09:05→21:31)
[2018-12-23] MEDS ORDERED: SOD CHLORIDE 0.9% 250 ML IV* ONE (11:01)
[2018-12-23] MEDS ORDERED: POTASSIUM CHLORIDE (SR) 20 MEQ TAB PO STA (11:25)
--- NOTE | 2018-12-23 11:27 | PN ---
Date/Time of Note Date/Time of Note DATE: 12/23/18 TIME: 11:26 Assessment/Plan VTE Prophylaxis Risk score (from Ns)>0 risk: 1 SCD applied (from [facility]): No SCD contraindicated: patient refusal Pharmacological prophylaxis: NA/contraindicated Pharm contraindication: low risk/ambulating, bleeding Lines/Catheters IV Catheter Type (from [facility]): Peripheral IV Urinary Cath still in place: No Assessment/Plan Hospital Course SUBJECTIVE: Lying in bed, not cooperative with exam. OBJECTIVE: Vital signs-see below PHYSICAL EXAM: Constitutional: Disheveled young female, intoxicated with alcohol psych: uncooperative. nl mood/affect, no complaints Head: atraumatic, normocephalic Eyes: nl conjunctiva, nl sclera ENMT: mucosa pink and moist, nl external ears & nose Neck: non-tender, supple Respiratory: clear to auscultation, normal air movement Cardiovascular: nl pulses, regular rate and rhythm Gastrointestinal: non-tender, soft, bowel sounds active in all 4 quadrants. Musculoskeletal/extremities: nl extremities to inspection, motor strength equal bilaterally, no focal deficit. Normal pulses,no cyanosis, no edema. Neurological:. Alert oriented 3,nl speech, nl strength Skin: nl turgor ASSESSMENT/PLAN: 38-year-old female with alcohol abuse, alcoholic liver disease, pancytopenia, transferred from outside hospital for management for hematemesis.. 1. Hemetemesis/GI bleed, rule out esophageal varices -No further bleed after admission -GI following and plan is EGD likely in a.m. once coagulopathy is corrected. -Continue PPI/octreotide gtt -Start Naldol 2. Acute blood loss anemia secondary to #1 -A total 3 units PRBC has been ordered. -Monitor H&H closely. 3. Coagulopathy/thrombocytopenia/pancytopenia secondary to alcoholic liver disease. -Transfuse 2 units FFP -Bleeding precautions. -Avoid platelet/anticoagulants. -s/p vitamin K 4. Transaminitis -Imperative to rule out choledocholithiasis although this could be secondary to alcoholism -Obtain MRCP. 5. Alcoholic liver cirrhosis with ascites, decompensated -Attempt ultrasound-guided paracentesis after FFP -Start Lasix, Aldactone,lactulpse for hepatic encephalopathy prophylaxis. -Follow-up GI recommendations 6. EtOH abuse -Start banana bag, withdrawal protocol with Librium and as needed Ativan -stamping die try out worker to assist patient with finding resources. 7. Noncompliance -Advised on cooperating with treatment and intervention. DVT prophylaxis: SCDs PUD prophylaxis: Protonix CODE STATUS: Full code Diet: N.p.o. except medications. Disposition: Continue current management. Continue to correct coagulopathy and anemia and plan is GI intervention. Patient was seen in collaboration with Dr. Avery. Result Diagram: 12/23/18 0957 12/23/18 0851 Results 24hrs Laboratory Tests Test 12/22/18 23:10 12/23/18 02:30 12/23/18 02:33 12/23/18 08:51 White Blood Count 1.1 #L 0.6 #L Red Blood Count 2.19 L 2.21 L Hemoglobin 6.6 *L 6.7 *L Hematocrit 20.4 L 20.7 L Mean Corpuscular 93.2 93.7 Volume Mean Corpuscular 30.1 30.3 Hemoglobin Mean Corpuscular 32.4 32.4 Hemoglobin Concent Red Cell 17.7 H 17.8 H Distribution Width Platelet Count 11 #*L 11 *L Mean Platelet Volume Immature 0.900 H 0.000 L Granulocytes % Neutrophils % Segmented 68 60 Neutrophils % (Manual) Band Neutrophils % 4 4 (Manual) Lymphocytes % Lymphocytes % 21 29 (Manual) Reactive 4 H Lymphocytes % (Manual) Monocytes % Eosinophils % Eosinophils % 1 5 (Manual) Basophils % Basophils % 2 1 (Manual) Nucleated Red 0.0 0.0 Blood Cells % Immature 0.010 0.000 Granulocytes # Neutrophils # Neutrophils # 0.7 L 0.4 L (Manual) Band Neutrophils # 0.0 0.0 Lymphocytes 0.2 L 0.1 L (Manual) Lymphocytes # Reactive 0.0 Lymphocytes # Monocytes # Eosinophils # Basophils # Basophils # 0.0 0.0 (Manual) Nucleated Red Blood Cells # Platelet Estimate SIG DECREASED SIG DECREASED Giant Platelets 4 H 2 H Polychromasia 3+ 3+ Poikilocytosis 3+ 1+ Anisocytosis 2+ 1+ Macrocytosis 2+ 1+ Target Cells 1+ 1+ Ovalocytes 1+ 1+ Echinocytes 1+ Acanthocytes 1+ Lactate 1039 H Dehydrogenase Prothrombin Time 23.6 H 24.1 H Prothrombin Time 1.8 1.9 Ratio INR International 2.10 2.15 Normalized Ratio Activated 35.9 H 43.[address] Time Sodium Level 138 138 Potassium Level 3.3 L 3.3 L Chloride Level 106 103 Carbon Dioxide 25 27 Level Anion Gap 7 8 Blood Urea 7 7 Nitrogen Creatinine 0.57 0.61 Est Glomerular > 60 > 60 Filtrat Rate mL/min Glucose Level 64 L 80 Calcium Level 7.5 L 7.3 L Total Bilirubin 3.6 H 3.7 H Direct Bilirubin 0.90 H 1.10 H Indirect Bilirubin 2.7 H 2.6 H Aspartate Amino 183 H 146 H Transf (AST/SGOT) Alanine 49 50 Aminotransferase ( ALT/SGPT) Alkaline 111 104 Phosphatase Total Protein 6.0 L 5.9 L Albumin 2.5 L 2.3 L Globulin 3.50 H 3.60 H Albumin/Globulin 0.71 0.63 Ratio Amylase Level 39 Lipase < 10 L Ethyl Alcohol < 10.0 H Level Monocytes % 1 (Manual) Monocytes # 0.0 L (Manual) Hypochromasia 1+ Schistocytes 1+ Absolute 0.080 Reticulocyte Count Percent 3.6 H Reticulocyte Count Hemoglobin A1c 5.4 Magnesium Level 1.4 L Triglycerides 73 Level Cholesterol Level 131 LDL Cholesterol, 84 Calculated HDL Cholesterol 32 L Cholesterol/HDL 4.0 Ratio Thyroid 0.476 Stimulating Hormone (TSH) Test 12/23/18 09:57 White Blood Count 0.7 L Red Blood Count 2.25 L Hemoglobin 6.8 *L Hematocrit 21.0 L Mean Corpuscular 93.3 Volume Mean Corpuscular 30.2 Hemoglobin Mean Corpuscular 32.4 Hemoglobin Concent Red Cell 18.0 H Distribution Width Platelet Count 9 *L Mean Platelet Volume Immature 0.000 L Granulocytes % Neutrophils % Lymphocytes % Monocytes % Eosinophils % Basophils % Nucleated Red 0.0 Blood Cells % Immature 0.000 Granulocytes # Neutrophils # Lymphocytes # Monocytes # Eosinophils # Basophils # Nucleated Red Blood Cells # Exam/Review of Systems Exam Vitals Vital Signs Date Temp Pulse Resp B/P (MAP) Pulse Ox O2 O2 Flow FiO2 Time Delivery Rate 12/23/18 89 08:39 12/23/18 98.0 16 115/57 96 07:45 (76) 12/22/18 Room Air 22:27 Intake and Output 12/22/18 12/22/18 12/23/18 1414:59 22:59 06:59 IntakeIntake Total 60 ml BalanceBalance 60 ml Results Results 24hrs Laboratory Tests Test 12/22/18 23:10 12/23/18 02:30 12/23/18 02:33 12/23/18 08:51 White Blood Count 1.1 #L 0.6 #L Red Blood Count 2.19 L 2.21 L Hemoglobin 6.6 *L 6.7 *L Hematocrit 20.4 L 20.7 L Mean Corpuscular 93.2 93.7 Volume Mean Corpuscular 30.1 30.3 Hemoglobin Mean Corpuscular 32.4 32.4 Hemoglobin Concent Red Cell 17.7 H 17.8 H Distribution Width Platelet Count 11 #*L 11 *L Mean Platelet Volume Immature 0.900 H 0.000 L Granulocytes % Neutrophils % Segmented 68 60 Neutrophils % (Manual) Band Neutrophils % 4 4 (Manual) Lymphocytes % Lymphocytes % 21 29 (Manual) Reactive 4 H Lymphocytes % (Manual) Monocytes % Eosinophils % Eosinophils % 1 5 (Manual) Basophils % Basophils % 2 1 (Manual) Nucleated Red 0.0 0.0 Blood Cells % Immature 0.010 0.000 Granulocytes # Neutrophils # Neutrophils # 0.7 L 0.4 L (Manual) Band Neutrophils # 0.0 0.0 Lymphocytes 0.2 L 0.1 L (Manual) Lymphocytes # Reactive 0.0 Lymphocytes # Monocytes # Eosinophils # Basophils # Basophils # 0.0 0.0 (Manual) Nucleated Red Blood Cells # Platelet Estimate SIG DECREASED SIG DECREASED Giant Platelets 4 H 2 H Polychromasia 3+ 3+ Poikilocytosis 3+ 1+ Anisocytosis 2+ 1+ Macrocytosis 2+ 1+ Target Cells 1+ 1+ Ovalocytes 1+ 1+ Echinocytes 1+ Acanthocytes 1+ Lactate 1039 H Dehydrogenase Prothrombin Time 23.6 H 24.1 H Prothrombin Time 1.8 1.9 Ratio INR International 2.10 2.15 Normalized Ratio Activated 35.9 H 43.[address] Time Sodium Level 138 138 Potassium Level 3.3 L 3.3 L Chloride Level 106 103 Carbon Dioxide 25 27 Level Anion Gap 7 8 Blood Urea 7 7 Nitrogen Creatinine 0.57 0.61 Est Glomerular > 60 > 60 Filtrat Rate mL/min Glucose Level 64 L 80 Calcium Level 7.5 L 7.3 L Total Bilirubin 3.6 H 3.7 H Direct Bilirubin 0.90 H 1.10 H Indirect Bilirubin 2.7 H 2.6 H Aspartate Amino 183 H 146 H Transf (AST/SGOT) Alanine 49 50 Aminotransferase ( ALT/SGPT) Alkaline 111 104 Phosphatase Total Protein 6.0 L 5.9 L Albumin 2.5 L 2.3 L Globulin 3.50 H 3.60 H Albumin/Globulin 0.71 0.63 Ratio Amylase Level 39 Lipase < 10 L Ethyl Alcohol < 10.0 H Level Monocytes % 1 (Manual) Monocytes # 0.0 L (Manual) Hypochromasia 1+ Schistocytes 1+ Absolute 0.080 Reticulocyte Count Percent 3.6 H Reticulocyte Count Hemoglobin A1c 5.4 Magnesium Level 1.4 L Triglycerides 73 Level Cholesterol Level 131 LDL Cholesterol, 84 Calculated HDL Cholesterol 32 L Cholesterol/HDL 4.0 Ratio Thyroid 0.476 Stimulating Hormone (TSH) Test 12/23/18 09:57 White Blood Count 0.7 L Red Blood Count 2.25 L Hemoglobin 6.8 *L Hematocrit 21.0 L Mean Corpuscular 93.3 Volume Mean Corpuscular 30.2 Hemoglobin Mean Corpuscular 32.4 Hemoglobin Concent Red Cell 18.0 H Distribution Width Platelet Count 9 *L Mean Platelet Volume Immature 0.000 L Granulocytes % Neutrophils % Lymphocytes % Monocytes % Eosinophils % Basophils % Nucleated Red 0.0 Blood Cells % Immature 0.000 Granulocytes # Neutrophils # Lymphocytes # Monocytes # Eosinophils # Basophils # Nucleated Red Blood Cells # Medications Medication Current Medications IV Flush (NS 3 ml) 3 ml PER PROTOCOL IV ; Start 12/22/18 at 23:00 Acetaminophen (Tylenol Tab) 650 mg Q6H PRN PO .PAIN 1-3 OR TEMP; Start 12/22/18 at 23:00 Octreotide Acetate 1 mg/ Dextrose 100 ml @ 5 mls/hr Q20H IV Last administered on 12/23/18at 03:30; Admin Dose 5 MLS/HR; Start 12/22/18 at 23:00 Pantoprazole 80 mg/Sodium Chloride 100 ml @ 10 mls/hr Q10H IV Last admini stered on 12/23/18at 03:31; Admin Dose 10 MLS/HR; Start 12/22/18 at 23:00 Ondansetron HCl (Zofran Inj) 4 mg Q4H PRN IV NAUSEA/VOMITING; Start 12/23/18 at 03:00 Lorazepam (Ativan) 1 mg Q4H PRN IV CONTROL WITHDRAWAL SYMPTOMS Last administered on 12/23/18at 09:05; Admin Dose 1 MG; Start 12/23/18 at 06:30 Chlordiazepoxide (Librium) 50 mg TID PO Last administered on 12/23/18at 04:43; Admin Dose 50 MG; Start 12/23/18 at 04:00; Stop 12/23/18 at 23:59 Chlordiazepoxide (Librium) 25 mg QID PO ; Start 12/24/18 at 09:00; Stop 12/24/18 at 23:59 Chlordiazepoxide (Librium) 25 mg TID PO ; Start 12/25/18 at 09:00; Stop 12/25/18 at 23:59 Ceftriaxone Sodium 50 ml @ 100 mls/hr Q24H IVPB ; Start 12/23/18 at 12:00 Multivitamins 10 ml/Thiamine HCl 100 mg/Folic Acid 1 mg/Sodium Chloride 1,011.2 ml @ 125 mls/ hr DAILY@09 IVPB ; Start 12/24/18 at 09:00; Status UNV Sodium Chloride 250 ml @ 0 mls/hr Q0M ONCE IV* ; Start 12/23/18 at 11:01; Stop 12/23/18 at 11:02; Status UNV ARON RUFFIN NP Dec 23, 2018 11:27
[2018-12-23] MEDS: SPIRONOLACTONE 50 MG TAB PO SCH (12:12)
[2018-12-23] MEDS: FUROSEMIDE 40 MG TAB PO SCH (12:12)
[2018-12-23] MEDS: LACTULOSE 30ML CUP PO SCH ×2 (12:12→21:29)
[2018-12-23] MEDS: CEFTRIAXONE 1 GM/50 ML (PMX) 50 ML IVPB SCH (12:12)
[2018-12-23] MEDS: METOCLOPRAMIDE 10 MG INJ IV SCH ×2 (12:13→17:17)
[2018-12-23] MEDS: morphine 2 MG INJ IV PRN ×2 (12:13→17:17)
[2018-12-23] MEDS: NADOLOL 40 MG TAB PO SCH (13:23)
--- NOTE | 2018-12-23 14:07 | CONS ---
Assessment/Plan Assessment/Plan Hospital Course (Demo Recall) Summary Assessment and Plan: Assessment: Hematemesis/melena Alcoholic hepatitis - DF- 46 Decompensated alcoholic liver cirrhosis portal hypertension -Last EGD about 1 year ago status post EVL Profound pancytopenia Coagulopathy EtOH abuse Indirect hyperbilirubinemia Plan: Continue PPI/Octreotide We will start pentoxifylline for alcoholic hepatitis instead of methylpredisolone given profound pancytopenia Start clear liquid diet FFP/platelets/packed RBCs have been ordered We will start vitamin K 10 mg sq times 3 days Patient will require EGD in the near future 1 stabilized [Endoscopy - risks/benefits/alternatives/indications of procedure and sedation/anesthesia discussed with patient who states understanding and gives informed consent to proceed. PARQ held and questions were answered.] Patient seen in collaboration with Dr. Dhillon CC: VENESSA DHILLON ; Consultation Date/Type/Reason Admit Date/Time Dec 22, 2018 at 21:39 Date of Consultation: Dec 23, 2018 Type of Consult GI Reason for Consultation Hematemesis/melena Date/Time of Note DATE: 12/23/18 TIME: 13:40 Hx of Present Illness This is a 38-year-old female past medical history of decompensated alcoholic liver cirrhosis with portal HTN, Last EGD per patient about 1 year ago s/p EVL, ETOH abuse, who presented to [facility] for complaints of melena and hematemesis. Patient was transferred to [facility] for insurance reasons. Initial labs reveal profound pancytopenia patient is status post 1 units platelet transfusion as well as 1 unit of packed RBCs. Labs this morning revealed WBC of 0.7, hemoglobin 6.8, platelet count of 9, INR of 2.15 with indirect hyperbilirubinemia and elevated AST. Patient has been started on octreotide drip as well as a PPI drip. And empirically started on ceftriaxone. She denies nausea/vomiting there is no abdominal pain no overt signs of GI bleed. Ms. distended likely secondary to ascites paracentesis has been ordered however given hematology will likely be completed today. 2 additional units of platelets have been ordered as well as packed RBCs and FFP will plan to order vitamin K 10 mg subcu times 3 days. Patient will require EGD once stabilized Review of Systems: A 12 system, review was conducted and is negative except as noted in the HPI or here. Past Medical History Home Meds Active Scripts Ferrous Sulfate* (Ferrous Sulfate*) 325 Mg Tabec, 325 MG PO TID for 30 Days, TAB Prov:JAE DAS MD 11/29/16 Pantoprazole* (Protonix*) 40 Mg Tablet.dr, 60 MG PO BID, #60 TAB Prov:JAE DAS MD 11/29/16 Medications Current Medications IV Flush (NS 3 ml) 3 ml PER PROTOCOL IV ; Start 12/22/18 at 23:00 Octreotide Acetate 1 mg/ Dextrose 100 ml @ 5 mls/hr Q20H IV Last administered on 12/23/18at 03:30; Admin Dose 5 MLS/HR; Start 12/22/18 at 23:00 Pantoprazole 80 mg/Sodium Chloride 100 ml @ 10 mls/hr Q10H IV Last administered on 12/23/18at 03:31; Admin Dose 10 MLS/HR; Start 12/22/18 at 23:00 Ondansetron HCl (Zofran Inj) 4 mg Q4H PRN IV NAUSEA/VOMITING; Start 12/23/18 at 03:00 Lorazepam (Ativan) 1 mg Q4H PRN IV CONTROL WITHDRAWAL SYMPTOMS Last administered on 12/23/18at 13:30; Admin Dose 1 MG; Start 12/23/18 at 06:30 Chlordiazepoxide (Librium) 50 mg TID PO Last administered on 12/23/18at 13:22; A dmin Dose 50 MG; Start 12/23/18 at 04:00; Stop 12/23/18 at 23:59 Chlordiazepoxide (Librium) 25 mg QID PO ; Start 12/24/18 at 09:00; Stop 12/24/18 at 23:59 Chlordiazepoxide (Librium) 25 mg TID PO ; Start 12/25/18 at 09:00; Stop 12/25/18 at 23:59 Ceftriaxone Sodium 50 ml @ 100 mls/hr Q24H IVPB Last administered on 12/23/18at 12:12; Admin Dose 100 MLS/HR; Start 12/23/18 at 12:00 Multivitamins 10 ml/Thiamine HCl 100 mg/Folic Acid 1 mg/Sodium Chloride 1,011.2 ml @ 125 mls/ hr DAILY@09 IVPB ; Start 12/24/18 at 09:00 Metoclopramide HCl (Reglan) 10 mg Q6 IV Last administered on 12/23/18 12:13; Admin Dose 10 MG; Start 12/23/18 at 12:00 Furosemide (Lasix) 40 mg DAILY PO Last administered on 12/23/18 12:12; Admin Dose 40 MG; Start 12/23/18 at 11:30 Spironolactone (Aldactone) 100 mg DAILY PO Last administered on 12/23/18 12:12; Admin Dose 100 MG; Start 12/23/18 at 11:30 Nadolol (Corgard) 40 mg DAILY PO Last administered on 12/23/18 13:23; Admin Dose 40 MG; Start 12/23/18 at 11:30 Lactulose (Enulose) 20 gm BID PO Last administered on 12/23/18 12:12; Admin Dose 20 GM; Start 12/23/18 at 11:30 Acetaminophen (Tylenol Tab) 325 mg Q6H PRN PO temp>100.4; Start 12/23/18 at 17:00 Morphine Sulfate (morphine) 1 mg Q4H PRN IV SEVERE PAIN LEVEL 7-10 Last administered on 12/23/18 12:13; Admin Dose 1 MG; Start 12/23/18 at 12:00 Allergies: Coded Allergies: ondansetron (Verified Allergy, Intermediate, 12/23/18) Social History Alcohol Use: heavy Smoking Status: Never smoker Drug Use: none Exam/Review of Systems Exam Vitals Vital Signs Date Temp Pulse Resp B/P (MAP) Pulse Ox O2 O2 Flow FiO2 Time Delivery Rate 12/23/18 90 12:18 12/23/18 98.4 16 124/82 98 11:49 (96) 12/22/18 Room Air 22:27 Intake and Output 12/22/18 12/22/18 12/23/18 1515:00 23:00 07:00 IntakeIntake Total 60 ml BalanceBalance 60 ml Exam PHYSICAL EXAMINATION: GENERAL: Alert & oriented x 3 SKIN: No lesions EYES: Pupils equal reactive to light, no discharge. EARS/NOSE AND THROAT: Ears normal, nose normal NECK: Supple, no masses CHEST: Inspection within normal limits. CARDIOVASCULAR: Heart: Regular rate and rhythm RESPIRATORY: Lungs clear to auscultation GASTROINTESTINAL AND LIVER: Abdomen: Soft, non tenderness, + distended, no hernias, no masses, no organomegaly, + ascites, no guarding, no rebound tenderness, normoactive bowel sounds. Rectal: Deferred. EXTREMITIES: No cyanosis, clubbing or edema. Results Result Diagram: 12/23/18 0957 12/23/18 0851 Results 24hrs Laboratory Tests Test 12/22/18 23:10 12/23/18 02:30 12/23/18 02:33 12/23/18 08:51 White Blood Count 1.1 #L 0.6 #L Red Blood Count 2.19 L 2.21 L Hemoglobin 6.6 *L 6.7 *L Hematocrit 20.4 L 20.7 L Mean Corpuscular 93.2 93.7 Volume Mean Corpuscular 30.1 30.3 Hemoglobin Mean Corpuscular 32.4 32.4 Hemoglobin Concent Red Cell 17.7 H 17.8 H Distribution Width Platelet Count 11 #*L 11 *L Mean Platelet Volume Immature 0.900 H 0.000 L Granulocytes % Neutrophils % Segmented 68 60 Neutrophils % (Manual) Band Neutrophils % 4 4 (Manual) Lymphocytes % Lymphocytes % 21 29 (Manual) Reactive 4 H Lymphocytes % (Manual) Monocytes % Eosinophils % Eosinophils % 1 5 (Manual) Basophils % Basophils % 2 1 (Manual) Nucleated Red 0.0 0.0 Blood Cells % Immature 0.010 0.000 Granulocytes # Neutrophils # Neutrophils # 0.7 L 0.4 L (Manual) Band Neutrophils # 0.0 0.0 Lymphocytes 0.2 L 0.1 L (Manual) Lymphocytes # Reactive 0.0 Lymphocytes # Monocytes # Eosinophils # Basophils # Basophils # 0.0 0.0 (Manual) Nucleated Red Blood Cells # Platelet Estimate SIG DECREASED SIG DECREASED Giant Platelets 4 H 2 H Polychromasia 3+ 3+ Poikilocytosis 3+ 1+ Anisocytosis 2+ 1+ Macrocytosis 2+ 1+ Target Cells 1+ 1+ Ovalocytes 1+ 1+ Echinocytes 1+ Acanthocytes 1+ Lactate 1039 H Dehydrogenase Prothrombin Time 23.6 H 24.1 H Prothrombin Time 1.8 1.9 Ratio INR International 2.10 2.15 Normalized Ratio Activated 35.9 H 43.[address] Time Sodium Level 138 138 Potassium Level 3.3 L 3.3 L Chloride Level 106 103 Carbon Dioxide 25 27 Level Anion Gap 7 8 Blood Urea 7 7 Nitrogen Creatinine 0.57 0.61 Est Glomerular > 60 > 60 Filtrat Rate mL/min Glucose Level 64 L 80 Calcium Level 7.5 L 7.3 L Total Bilirubin 3.6 H 3.7 H Direct Bilirubin 0.90 H 1.10 H Indirect Bilirubin 2.7 H 2.6 H Aspartate Amino 183 H 146 H Transf (AST/SGOT) Alanine 49 50 Aminotransferase ( ALT/SGPT) Alkaline 111 104 Phosphatase Total Protein 6.0 L 5.9 L Albumin 2.5 L 2.3 L Globulin 3.50 H 3.60 H Albumin/Globulin 0.71 0.63 Ratio Amylase Level 39 Lipase < 10 L Ethyl Alcohol < 10.0 H Level Monocytes % 1 (Manual) Monocytes # 0.0 L (Manual) Hypochromasia 1+ Schistocytes 1+ Absolute 0.080 Reticulocyte Count Percent 3.6 H Reticulocyte Count Hemoglobin A1c 5.4 Magnesium Level 1.4 L Triglycerides 73 Level Cholesterol Level 131 LDL Cholesterol, 84 Calculated HDL Cholesterol 32 L Cholesterol/HDL 4.0 Ratio Thyroid 0.476 Stimulating Hormone (TSH) Test 12/23/18 09:57 White Blood Count 0.7 L Red Blood Count 2.25 L Hemoglobin 6.8 *L Hematocrit 21.0 L Mean Corpuscular 93.3 Volume Mean Corpuscular 30.2 Hemoglobin Mean Corpuscular 32.4 Hemoglobin Concent Red Cell 18.0 H Distribution Width Platelet Count 9 *L Mean Platelet Volume Immature 0.000 L Granulocytes % Neutrophils % Segmented 70 Neutrophils % (Manual) Band Neutrophils % 8 H (Manual) Lymphocytes % Lymphocytes % 18 (Manual) Monocytes % Monocytes % 1 (Manual) Eosinophils % Eosinophils % 2 (Manual) Basophils % Basophils % 1 (Manual) Nucleated Red 1 H Blood Cells % Immature 0.000 Granulocytes # Neutrophils # Neutrophils # 0.5 L (Manual) Band Neutrophils # 0.0 Lymphocytes 0.1 L (Manual) Lymphocytes # Monocytes # Monocytes # 0.0 L (Manual) Eosinophils # Basophils # Basophils # 0.0 (Manual) Nucleated Red Blood Cells # Platelet Estimate SIG DECREASED Giant Platelets 1 H Polychromasia 3+ Hypochromasia 2+ Poikilocytosis 2+ Anisocytosis 1+ Macrocytosis 1+ Target Cells 1+ Ovalocytes 1+ Schistocytes 1+ Medications Medication Current Medications IV Flush (NS 3 ml) 3 ml PER PROTOCOL IV ; Start 12/22/18 at 23:00 Octreotide Acetate 1 mg/ Dextrose 100 ml @ 5 mls/hr Q20H IV Last administered on 12/23/18 03:30; Admin Dose 5 MLS/HR; Start 12/22/18 at 23:00 Pantoprazole 80 mg/Sodium Chloride 100 ml @ 10 mls/hr Q10H IV Last administered on 12/23/18 03:31; Admin Dose 10 MLS/HR; Start 12/22/18 at 23:00 Ondansetron HCl (Zofran Inj) 4 mg Q4H PRN IV NAUSEA/VOMITING; Start 12/23/18 at 03:00 Lorazepam (Ativan) 1 mg Q4H PRN IV CONTROL WITHDRAWAL SYMPTOMS Last administered on 12/23/18 13:30; Admin Dose 1 MG; Start 12/23/18 at 06:30 Chlordiazepoxide (Librium) 50 mg TID PO Last administered on 12/23/18 13:22; Admin Dose 50 MG; Start 12/23/18 at 04:00; Stop 12/23/18 at 23:59 Chlordiazepoxide (Librium) 25 mg QID PO ; Start 12/24/18 at 09:00; Stop 12/24/18 at 23:59 Chlordiazepoxide (Librium) 25 mg TID PO ; Start 12/25/18 at 09:00; Stop 12/25/18 at 23:59 Ceftriaxone Sodium 50 ml @ 100 mls/hr Q24H IVPB Last administered on 12/23/18 12:12; Admin Dose 100 MLS/HR; Start 12/23/18 at 12:00 Multivitamins 10 ml/Thiamine HCl 100 mg/Folic Acid 1 mg/Sodium Chloride 1,011.2 ml @ 125 mls/ hr DAILY@09 IVPB ; Start 12/24/18 at 09:00 Metoclopramide HCl (Reglan) 10 mg Q6 IV Last administered on 12/23/18 12:13; Admin Dose 10 MG; Start 12/23/18 at 12:00 Furosemide (Lasix) 40 mg DAILY PO Last administered on 12/23/18 12:12; Admin Dose 40 MG; Start 12/23/18 at 11:30 Spironolactone (Aldactone) 100 mg DAILY PO Last administered on 12/23/18 12:12; Admin Dose 100 MG; Start 12/23/18 at 11:30 Nadolol (Corgard) 40 mg DAILY PO Last administered on 12/23/18 13:23; Admin Dose 40 MG; Start 12/23/18 at 11:30 Lactulose (Enulose) 20 gm BID PO Last administered on 12/23/18 12:12; Admin Dose 20 GM; Start 12/23/18 at 11:30 Acetaminophen (Tylenol Tab) 325 mg Q6H PRN PO temp>100.4; Start 12/23/18 at 17:00 Morphine Sulfate (morphine) 1 mg Q4H PRN IV SEVERE PAIN LEVEL 7-10 Last administered on 12/23/18 12:13; Admin Dose 1 MG; Start 12/23/18 at 12:00 JOAO ZHAO Dec 23, 2018 13:50
[2018-12-23] MEDS: PHYTONADIONE 10 MG/ML INJ SC SCH (14:41)
[2018-12-23] MEDS: PENTOXIFYLLINE (SR) 400 MG TAB PO SCH (21:31)
[2018-12-23] MEDS: ACETAMINOPHEN 325 MG TAB PO PRN (21:31)
[2018-12-24] VITALS (22 sets, daily range): BP systolic 104–169; BP diastolic 68–99; PULSE 65–92; RESP 13–33
[2018-12-24] MEDS: METOCLOPRAMIDE 10 MG INJ IV SCH ×5 (00:15→23:29)
[2018-12-24] MEDS: morphine LIQ (10 MG/5 ML) CUP PO PRN ×2 (01:57→23:29)
[2018-12-24] MEDS: LORAZEPAM 2 MG INJ IV PRN (03:56)
[2018-12-24] MEDS: PANTOPRAZOLE IV 80 MG in SOD CHLORIDE 0.9% 100 ML IV SCH ×3 (05:00→23:35)
[2018-12-24] MEDS ORDERED: DIPHENHYDRAMINE 50 MG INJ IV ONE (05:30)
[2018-12-24] MEDS ORDERED: PROPOFOL 200 MG INJ ONE (07:00)
[2018-12-24] MEDS: LACTULOSE 30ML CUP PO SCH ×2 (08:57→20:33)
[2018-12-24] MEDS: MULTIVITAMINS 10 ML, THIAMINE 100 MG, FOLIC ACID 1 MG in SOD CHLORIDE 0.9% 1,000 ML IVPB SCH (08:57)
[2018-12-24] MEDS: FUROSEMIDE 40 MG TAB PO SCH (08:58)
[2018-12-24] MEDS: SPIRONOLACTONE 50 MG TAB PO SCH (08:58)
[2018-12-24] MEDS: PENTOXIFYLLINE (SR) 400 MG TAB PO SCH ×3 (08:59→20:33)
[2018-12-24] MEDS: NADOLOL 40 MG TAB PO SCH (09:00)
[2018-12-24] MEDS: PHYTONADIONE 10 MG/ML INJ SC SCH (09:01)
[2018-12-24] MEDS: CHLORDIAZEPOXIDE 25 MG CAP PO SCH ×4 (09:38→20:33)
[2018-12-24] MEDS: CEFTRIAXONE 1 GM/50 ML (PMX) 50 ML IVPB SCH (11:08)
--- NOTE | 2018-12-24 11:33 | PN ---
Date/Time of Note Date/Time of Note DATE: 12/24/18 TIME: 11:21 Assessment/Plan VTE Prophylaxis Risk score (from Nsg)>0 risk: 1 SCD applied (from Ns): No SCD contraindicated: other (scds) Pharmacological prophylaxis: other (scds) Lines/Catheters IV C[facility]ter Type [facility]from [facility] Mid Line Urinary Cath still in place: No Assessment/Plan Hospital Course Summary Assessment and Plan: Assessment: Hematemesis/melena Alcoholic hepatitis - DF- 46 Decompensated alcoholic liver cirrhosis portal hypertension -Last EGD about 1 year ago status post EVL Profound pancytopenia Coagulopathy EtOH abuse Indirect hyperbilirubinemia Plan: Continue PPI/Octreotide Continue pentoxifylline for alcoholic hepatitis instead of methylpredisolone given profound pancytopenia NPO today Continue vitamin K 10 mg sq for a total of 3 doses Plan for EGD today- Plt's ordered- currently in transit - as patient Endoscopy - risks/benefits/alternatives/indications of procedure and sedation /anesthesia discussed with patient who states understanding and gives informed consent to proceed. S/p paracentesis - asitic fluid neg for SBP Patient seen in collaboration with Dr. Salazar/Serafin Subjective: Course reviewed with nursing staff Patient interviewed and examined All labs, imaging and other results reviewed The patient more lethargic today, oriented x4 Discussed plan for EGD today, plan for plt transfusion prior to EGD Pt able to verbalized understanding and repeat procedure back to me She currently agrees to proceed with EGD, will maintain close observation PHYSICAL EXAMINATION: GENERAL: Alert & oriented x 3- more lethargic today SKIN: No lesions EYES: Pupils equal reactive to light, no discharge. EARS/NOSE AND THROAT: Ears normal, nose normal NECK: Supple, no masses CHEST: Inspection within normal limits. CARDIOVASCULAR: Heart: Regular rate and rhythm RESPIRATORY: Lungs clear to auscultation GASTROINTESTINAL AND LIVER: Abdomen: Soft, non tenderness, distended, no hernias , no masses, no organomegaly, , no guarding, no rebound tenderness, normoactive bowel sounds. Rectal: Deferred. EXTREMITIES: No cyanosis, clubbing or edema. Result Diagram: 12/23/18 1754 12/24/18 0614 Results 24hrs Laboratory Tests Test 12/23/18 16:30 12/23/18 17:54 12/23/18 18:22 12/24/18 06:14 Body Fluid Type PARACENTHESIS Body Fluid Volume 1050.0 Body Fluid Color YELLOW Body Fluid CLEAR Appearance Body Fluid WBC 55 Body Fluid RBC 3000 (Auto) Body Fluid 7.3 Polynuclear WBCs (%) Body Fluid 92.7 Mononuclear Cells % Auto Body Fluid Total < 2.0 Protein Body Fluid 228 Lactate Dehydrogen ase White Blood Count 1.2 #L Red Blood Count 2.64 L Hemoglobin 8.1 L Hematocrit 24.6 L Mean Corpuscular 93.2 Volume Mean Corpuscular 30.7 Hemoglobin Mean Corpuscular 32.9 Hemoglobin Concent Red Cell 17.7 H Distribution Width Platelet Count 32 #L Mean Platelet Volume Immature 0.800 H Granulocytes % Neutrophils % Segmented 73 Neutrophils % (Manual) Band Neutrophils % 2 (Manual) Lymphocytes % Lymphocytes % 17 (Manual) Monocytes % Monocytes % 3 (Manual) Eosinophils % Eosinophils % 2 (Manual) Basophils % Basophils % 2 (Manual) Metamyelocytes % 1 H (manual) Nucleated Red 0.0 Blood Cells % Immature 0.010 Granulocytes # Neutrophils # Neutrophils # 0.9 L (Manual) Band Neutrophils # 0.0 Lymphocytes 0.2 L (Manual) Lymphocytes # Monocytes # Monocytes # 0.0 L (Manual) Eosinophils # Basophils # Basophils # 0.0 (Manual) Metamyelocytes # 0.0 Nucleated Red Blood Cells # Platelet Estimate SIG DECREASED Giant Platelets 2 H Polychromasia 2+ Hypochromasia 1+ Poikilocytosis 2+ Anisocytosis 1+ Microcytosis 1+ Macrocytosis 1+ Spherocytes 1+ Acanthocytes 1+ Schistocytes 1+ Ammonia 44 H Urine Color YELLOW Urine Clarity CLEAR Urine pH 8.0 Urine Specific 1.009 [place] Urine Ketones NEGATIVE Urine Nitrite NEGATIVE Urine Bilirubin NEGATIVE Urine Urobilinogen 1+ H Urine Leukocyte NEGATIVE Esterase Urine Hemoglobin NEGATIVE Urine Glucose NEGATIVE Urine Total NEGATIVE Protein Prothrombin Time 22.0 H Prothrombin Time 1.7 Ratio INR International 1.91 Normalized Ratio Activated 38.[address] Time Sodium Level 138 Potassium Level 3.2 L Chloride Level 103 Carbon Dioxide 27 Level Anion Gap 8 Blood Urea 5 L Nitrogen Creatinine 0.64 Est Glomerular > 60 Filtrat Rate mL/min Glucose Level 81 Calcium Level 7.9 L Total Bilirubin 4.4 H Direct Bilirubin 1.50 H Indirect Bilirubin 2.9 H Aspartate Amino 145 H Transf (AST/SGOT) Alanine 36 Aminotransferase ( ALT/SGPT) Alkaline 120 Phosphatase Total Protein 7.3 # Albumin 3.2 L Globulin 4.10 H Albumin/Globulin 0.78 Ratio Exam/Review of Systems Exam Vitals Vital Signs Date Temp Pulse Resp B/P (MAP) Pulse Ox O2 O2 Flow FiO2 Time Delivery Rate 12/24/18 97.8 16 95 08:30 12/24/18 67 08:16 12/23/18 Room Air 19:01 Intake and Output 12/23/18 12/23/18 12/24/18 1515:00 23:00 07:00 IntakeIntake Total 1122 ml 626 ml 550 ml OutputOutput Total 2300 ml BalanceBalance 1122 ml -1674 ml 550 ml Results Results 24hrs Laboratory Tests Test 12/23/18 16:30 12/23/18 17:54 12/23/18 18:22 12/24/18 06:14 Body Fluid Type PARACENTHESIS Body Fluid Volume 1050.0 Body Fluid Color YELLOW Body Fluid CLEAR Appearance Body Fluid WBC 55 Body Fluid RBC 3000 (Auto) Body Fluid 7.3 Polynuclear WBCs (%) Body Fluid 92.7 Mononuclear Cells % Auto Body Fluid Total < 2.0 Protein Body Fluid 228 Lactate Dehydrogen ase White Blood Count 1.2 #L Red Blood Count 2.64 L Hemoglobin 8.1 L Hematocrit 24.6 L Mean Corpuscular 93.2 Volume Mean Corpuscular 30.7 Hemoglobin Mean Corpuscular 32.9 Hemoglobin Concent Red Cell 17.7 H Distribution Width Platelet Count 32 #L Mean Platelet Volume Immature 0.800 H Granulocytes % Neutrophils % Segmented 73 Neutrophils % (Manual) Band Neutrophils % 2 (Manual) Lymphocytes % Lymphocytes % 17 (Manual) Monocytes % Monocytes % 3 (Manual) Eosinophils % Eosinophils % 2 (Manual) Basophils % Basophils % 2 (Manual) Metamyelocytes % 1 H (manual) Nucleated Red 0.0 Blood Cells % Immature 0.010 Granulocytes # Neutrophils # Neutrophils # 0.9 L (Manual) Band Neutrophils # 0.0 Lymphocytes 0.2 L (Manual) Lymphocytes # Monocytes # Monocytes # 0.0 L (Manual) Eosinophils # Basophils # Basophils # 0.0 (Manual) Metamyelocytes # 0.0 Nucleated Red Blood Cells # Platelet Estimate SIG DECREASED Giant Platelets 2 H Polychromasia 2+ Hypochromasia 1+ Poikilocytosis 2+ Anisocytosis 1+ Microcytosis 1+ Macrocytosis 1+ Spherocytes 1+ Acanthocytes 1+ Schistocytes 1+ Ammonia 44 H Urine Color YELLOW Urine Clarity CLEAR Urine pH 8.0 Urine Specific 1.009 [place] Urine Ketones NEGATIVE Urine Nitrite NEGATIVE Urine Bilirubin NEGATIVE Urine Urobilinogen 1+ H Urine Leukocyte NEGATIVE Esterase Urine Hemoglobin NEGATIVE Urine Glucose NEGATIVE Urine Total NEGATIVE Protein Prothrombin Time 22.0 H Prothrombin Time 1.7 Ratio INR International 1.91 Normalized Ratio Activated 38.[address] Time Sodium Level 138 Potassium Level 3.2 L Chloride Level 103 Carbon Dioxide 27 Level Anion Gap 8 Blood Urea 5 L Nitrogen Creatinine 0.64 Est Glomerular > 60 Filtrat Rate mL/min Glucose Level 81 Calcium Level 7.9 L Total Bilirubin 4.4 H Direct Bilirubin 1.50 H Indirect Bilirubin 2.9 H Aspartate Amino 145 H Transf (AST/SGOT) Alanine 36 Aminotransferase ( ALT/SGPT) Alkaline 120 Phosphatase Total Protein 7.3 # Albumin 3.2 L Globulin 4.10 H Albumin/Globulin 0.78 Ratio Medications Medication Current Medications IV Flush (NS 3 ml) 3 ml PER PROTOCOL IV ; Start 12/22/18 at 23:00 Octreotide Acetate 1 mg/ Dextrose 100 ml @ 5 mls/hr Q20H IV Last administered on 12/23/18at 03:30; Admin Dose 5 MLS/HR; Start 12/22/18 at 23:00 Pantoprazole 80 mg/Sodium Chloride 100 ml @ 10 mls/hr Q10H IV Last administered on 12/23/18at 03:31; Admin Dose 10 MLS/HR; Start 12/22/18 at 23:00 Ondansetron HCl (Zofran Inj) 4 mg Q4H PRN IV NAUSEA/VOMITING; Start 12/23/18 at 03:00 Lorazepam (Ativan) 1 mg Q4H PRN IV CONTROL WITHDRAWAL SYMPTOMS Last administered on 12/24/18at 03:56; Admin Dose 1 MG; Start 12/23/18 at 06:30 Chlordiazepoxide (Librium) 25 mg QID PO Last administered on 12/24/18at 09:38; Admin Dose 25 MG; Start 12/24/18 at 09:00; Stop 12/24/18 at 23:59 Chlordiazepoxide (Librium) 25 mg TID PO ; Start 12/25/18 at 09:00; Stop 12/25/18 at 23:59 Ceftriaxone Sodium 50 ml @ 100 mls/hr Q24H IVPB Last administered on 12/24/18 11:08; Admin Dose 100 MLS/HR; Start 12/23/18 at 12:00 Multivitamins 10 ml/Thiamine HCl 100 mg/Folic Acid 1 mg/Sodium Chloride 1,011.2 ml @ 125 mls/ hr DAILY@09 IVPB Last administered on 12/24/18 08:57; Admin Dose 125 MLS/HR; Start 12/24/18 at 09:00 Metoclopramide HCl (Reglan) 10 mg Q6 IV Last administered on 12/24/18 11:08; Admin Dose 10 MG; Start 12/23/18 at 12:00 Furosemide (Lasix) 40 mg DAILY PO Last administered on 12/24/18 08:58; Admin Dose 40 MG; Start 12/23/18 at 11:30 Spironolactone (Aldactone) 100 mg DAILY PO Last administered on 12/24/18 08:58; Admin Dose 100 MG; Start 12/23/18 at 11:30 Nadolol (Corgard) 40 mg DAILY PO Last administered on 12/24/18 09:00; Admin Dose 40 MG; Start 12/23/18 at 11:30 Lactulose (Enulose) 20 gm BID PO Last administered on 12/24/18 08:57; Admin Dose 20 GM; Start 12/23/18 at 11:30 Acetaminophen (Tylenol Tab) 325 mg Q6H PRN PO temp>100.4 Last administered on 12/23/18 21:31; Admin Dose 325 MG; Start 12/23/18 at 17:00 Phytonadione (Vitamin K) 10 mg DAILY SC Last administered on 12/24/18 09:01; Admin Dose 10 MG; Start 12/23/18 at 14:00; Stop 12/25/18 at 11:00 Pentoxifylline (Trental) 400 mg TID PO Last administered on 12/24/18 08:59; Admin Dose 400 MG; Start 12/23/18 at 21:00 Morphine Sulfate (morphine) 3 mg Q4H PRN PO SEVERE PAIN LEVEL 7-10 Last administered on 12/24/18 01:57; Admin Dose 3 MG; Start 12/23/18 at 23:30 JOAO ZHAO 6, 2019 11:32
[2018-12-24] MEDS ORDERED: POTASSIUM CHLORIDE (SR) 20 MEQ TAB PO STA (11:44)
--- NOTE | 2018-12-24 11:56 | PN ---
Date/Time of Note Date/Time of Note DATE: 12/24/18 TIME: 11:47 Assessment/Plan VTE Prophylaxis Risk score (from [facility] [place])>0 risk: 1 SCD applied (from [facility] [place]): No SCD contraindicated: patient refusal Pharmacological prophylaxis: NA/contraindicated Pharm contraindication: bleeding Lines/Catheters IV Catheter Type (from [facility]): Mid Line Urinary Cath still in place: No Assessment/Plan Hospital Course SUBJECTIVE: No further hematemesis. No melena, hematochezia. OBJECTIVE: Vital signs-see below PHYSICAL EXAM: Constitutional: Disheveled young female, intoxicated with alcohol psych: uncooperative. nl mood/affect, no complaints Head: atraumatic, normocephalic Eyes: nl conjunctiva, nl sclera ENMT: mucosa pink and moist, nl external ears & nose Neck: non-tender, supple Respiratory: clear to auscultation, normal air movement Cardiovascular: nl pulses, regular rate and rhythm Gastrointestinal: non-tender, soft, bowel sounds active in all 4 quadrants. Musculoskeletal/extremities: nl extremities to inspection, motor strength equal bilaterally, no focal deficit. Normal pulses,no cyanosis, no edema. Neurological:. Alert oriented 3,nl speech, nl strength Skin: nl turgor ASSESSMENT/PLAN: 38-year-old female with alcohol abuse, alcoholic liver disease, pancytopenia, transferred from outside hospital for management for hematemesis.. 1. Hematemesis/GI bleed, rule out esophageal varices -No further bleed after admission -GI following and plan is EGD -Continue PPI/octreotide gtt/Naldol 2. Acute blood loss anemia secondary to #1 -H&H now stable after 3 units PRBC. -Continue to monitor. 3. Coagulopathy/thrombocytopenia/pancytopenia secondary to alcoholic liver disease. -s/p vit k, FFP's, platelets=> counts stable. -cont. bleeding precautions. -Avoid platelet/anticoagulants. 4. Transaminitis -Imperative to rule out choledocholithiasis although this could be secondary to alcoholic hepatitis - MRCP pending. -Follow-up GI recommendations. 5. Decompensated alcoholic liver cirrhosis with ascites -s/p paracentesis with 1.9 L out 12/23/2018, follow-up fluid studies. -cont. Lasix, Aldactone -lactulose for hepatic encephalopathy prophylaxis. -Follow-up GI recommendations 6. EtOH abuse -cont.banana bag, withdrawal protocol with Librium and as needed Ativan -log raft worker to assist patient with finding resources. 7. Noncompliance -Advised on cooperating with treatment and intervention. DVT prophylaxis: SCDs PUD prophylaxis: Protonix CODE STATUS: Full code Diet: N.p.o. except medications. Disposition: Continue current management. Plan is EGD evaluation, follow-up GI recommendations. Patient was seen in collaboration with Dr. Avery. Result Diagram: 12/23/18 1754 12/24/18 0614 Results 24hrs Laboratory Tests Test 12/23/18 16:30 12/23/18 17:54 12/23/18 18:22 12/24/18 06:14 Body Fluid Type PARACENTHESIS Body Fluid Volume 1050.0 Body Fluid Color YELLOW Body Fluid CLEAR Appearance Body Fluid WBC 55 Body Fluid RBC 3000 (Auto) Body Fluid 7.3 Polynuclear WBCs (%) Body Fluid 92.7 Mononuclear Cells % Auto Body Fluid Total < 2.0 Protein Body Fluid 228 Lactate Dehydrogen ase White Blood Count 1.2 #L Red Blood Count 2.64 L Hemoglobin 8.1 L Hematocrit 24.6 L Mean Corpuscular 93.2 Volume Mean Corpuscular 30.7 Hemoglobin Mean Corpuscular 32.9 Hemoglobin Concent Red Cell 17.7 H Distribution Width Platelet Count 32 #L Mean Platelet Volume Immature 0.800 H Granulocytes % Neutrophils % Segmented 73 Neutrophils % (Manual) Band Neutrophils % 2 (Manual) Lymphocytes % Lymphocytes % 17 (Manual) Monocytes % Monocytes % 3 (Manual) Eosinophils % Eosinophils % 2 (Manual) Basophils % Basophils % 2 (Manual) Metamyelocytes % 1 H (manual) Nucleated Red 0.0 Blood Cells % Immature 0.010 Granulocytes # Neutrophils # Neutrophils # 0.9 L (Manual) Band Neutrophils # 0.0 Lymphocytes 0.2 L (Manual) Lymphocytes # Monocytes # Monocytes # 0.0 L (Manual) Eosinophils # Basophils # Basophils # 0.0 (Manual) Metamyelocytes # 0.0 Nucleated Red Blood Cells # Platelet Estimate SIG DECREASED Giant Platelets 2 H Polychromasia 2+ Hypochromasia 1+ Poikilocytosis 2+ Anisocytosis 1+ Microcytosis 1+ Macrocytosis 1+ Spherocytes 1+ Acanthocytes 1+ Schistocytes 1+ Ammonia 44 H Urine Color YELLOW Urine Clarity CLEAR Urine pH 8.0 Urine Specific 1.009 Keyes Urine Ketones NEGATIVE Urine Nitrite NEGATIVE Urine Bilirubin NEGATIVE Urine Urobilinogen 1+ H Urine Leukocyte NEGATIVE Esterase Urine Hemoglobin NEGATIVE Urine Glucose NEGATIVE Urine Total NEGATIVE Protein Prothrombin Time 22.0 H Prothrombin Time 1.7 Ratio INR International 1.91 Normalized Ratio Activated 38.[address] Time Sodium Level 138 Potassium Level 3.2 L Chloride Level 103 Carbon Dioxide 27 Level Anion Gap 8 Blood Urea 5 L Nitrogen Creatinine 0.64 Est Glomerular > 60 Filtrat Rate mL/min Glucose Level 81 Calcium Level 7.9 L Total Bilirubin 4.4 H Direct Bilirubin 1.50 H Indirect Bilirubin 2.9 H Aspartate Amino 145 H Transf (AST/SGOT) Alanine 36 Aminotransferase ( ALT/SGPT) Alkaline 120 Phosphatase Total Protein 7.3 # Albumin 3.2 L Globulin 4.10 H Albumin/Globulin 0.78 Ratio Exam/Review of Systems Exam Vitals Vital Signs Date Temp Pulse Resp B/P (MAP) Pulse Ox O2 O2 Flow FiO2 Time Delivery Rate 12/24/18 97.7 67 16 120/76 99 11:31 (91) 12/23/18 Room Air 19:01 Intake and Output 12/23/18 12/23/18 12/24/18 1515:00 23:00 07:00 IntakeIntake Total 1122 ml 626 ml 550 ml OutputOutput Total 2300 ml BalanceBalance 1122 ml -1674 ml 550 ml Results Results 24hrs Laboratory Tests Test 12/23/18 16:30 12/23/18 17:54 12/23/18 18:22 12/24/18 06:14 Body Fluid Type PARACENTHESIS Body Fluid Volume 1050.0 Body Fluid Color YELLOW Body Fluid CLEAR Appearance Body Fluid WBC 55 Body Fluid RBC 3000 (Auto) Body Fluid 7.3 Polynuclear WBCs (%) Body Fluid 92.7 Mononuclear Cells % Auto Body Fluid Total < 2.0 Protein Body Fluid 228 Lactate Dehydrogen ase White Blood Count 1.2 #L Red Blood Count 2.64 L Hemoglobin 8.1 L Hematocrit 24.6 L Mean Corpuscular 93.2 Volume Mean Corpuscular 30.7 Hemoglobin Mean Corpuscular 32.9 Hemoglobin Concent Red Cell 17.7 H Distribution Width Platelet Count 32 #L Mean Platelet Volume Immature 0.800 H Granulocytes % Neutrophils % Segmented 73 Neutrophils % (Manual) Band Neutrophils % 2 (Manual) Lymphocytes % Lymphocytes % 17 (Manual) Monocytes % Monocytes % 3 (Manual) Eosinophils % Eosinophils % 2 (Manual) Basophils % Basophils % 2 (Manual) Metamyelocytes % 1 H (manual) Nucleated Red 0.0 Blood Cells % Immature 0.010 Granulocytes # Neutrophils # Neutrophils # 0.9 L (Manual) Band Neutrophils # 0.0 Lymphocytes 0.2 L (Manual) Lymphocytes # Monocytes # Monocytes # 0.0 L (Manual) Eosinophils # Basophils # Basophils # 0.0 (Manual) Metamyelocytes # 0.0 Nucleated Red Blood Cells # Platelet Estimate SIG DECREASED Giant Platelets 2 H Polychromasia 2+ Hypochromasia 1+ Poikilocytosis 2+ Anisocytosis 1+ Microcytosis 1+ Macrocytosis 1+ Spherocytes 1+ Acanthocytes 1+ Schistocytes 1+ Ammonia 44 H Urine Color YELLOW Urine Clarity CLEAR Urine pH 8.0 Urine Specific 1.009 Keyes Urine Ketones NEGATIVE Urine Nitrite NEGATIVE Urine Bilirubin NEGATIVE Urine Urobilinogen 1+ H Urine Leukocyte NEGATIVE Esterase Urine Hemoglobin NEGATIVE Urine Glucose NEGATIVE Urine Total NEGATIVE Protein Prothrombin Time 22.0 H Prothrombin Time 1.7 Ratio INR International 1.91 Normalized Ratio Activated 38.[address] Time Sodium Level 138 Potassium Level 3.2 L Chloride Level 103 Carbon Dioxide 27 Level Anion Gap 8 Blood Urea 5 L Nitrogen Creatinine 0.64 Est Glomerular > 60 Filtrat Rate mL/min Glucose Level 81 Calcium Level 7.9 L Total Bilirubin 4.4 H Direct Bilirubin 1.50 H Indirect Bilirubin 2.9 H Aspartate Amino 145 H Transf (AST/SGOT) Alanine 36 Aminotransferase ( ALT/SGPT) Alkaline 120 Phosphatase Total Protein 7.3 # Albumin 3.2 L Globulin 4.10 H Albumin/Globulin 0.78 Ratio Medications Medication Current Medications IV Flush (NS 3 ml) 3 ml PER PROTOCOL IV ; Start 12/22/18 at 23:00 Octreotide Acetate 1 mg/ Dextrose 100 ml @ 5 mls/hr Q20H IV Last administered on 12/23/18 03:30; Admin Dose 5 MLS/HR; Start 12/22/18 at 23:00 Pantoprazole 80 mg/Sodium Chloride 100 ml @ 10 mls/hr Q10H IV Last administer ed on 12/23/18at 03:31; Admin Dose 10 MLS/HR; Start 12/22/18 at 23:00 Ondansetron HCl (Zofran Inj) 4 mg Q4H PRN IV NAUSEA/VOMITING; Start 12/23/18 at 03:00 Lorazepam (Ativan) 1 mg Q4H PRN IV CONTROL WITHDRAWAL SYMPTOMS Last administered on 12/24/18 03:56; Admin Dose 1 MG; Start 12/23/18 at 06:30 Chlordiazepoxide (Librium) 25 mg QID PO Last administered on 12/24/18 09:38; Admin Dose 25 MG; Start 12/24/18 at 09:00; Stop 12/24/18 at 23:59 Chlordiazepoxide (Librium) 25 mg TID PO ; Start 12/25/18 at 09:00; Stop 12/25/18 at 23:59 Ceftriaxone Sodium 50 ml @ 100 mls/hr Q24H IVPB Last administered on 12/24/18 11:08; Admin Dose 100 MLS/HR; Start 12/23/18 at 12:00 Multivitamins 10 ml/Thiamine HCl 100 mg/Folic Acid 1 mg/Sodium Chloride 1,011.2 ml @ 125 mls/ hr DAILY@09 IVPB Last administered on 12/24/18 08:57; Admin Dose 125 MLS/HR; Start 12/24/18 at 09:00 Metoclopramide HCl (Reglan) 10 mg Q6 IV Last administered on 12/24/18 11:08; Admin Dose 10 MG; Start 12/23/18 at 12:00 Furosemide (Lasix) 40 mg DAILY PO Last administered on 12/24/18 08:58; Admin Dose 40 MG; Start 12/23/18 at 11:30 Spironolactone (Aldactone) 100 mg DAILY PO Last administered on 12/24/18 08:58; Admin Dose 100 MG; Start 12/23/18 at 11:30 Nadolol (Corgard) 40 mg DAILY PO Last administered on 12/24/18 09:00; Admin Dose 40 MG; Start 12/23/18 at 11:30 Lactulose (Enulose) 20 gm BID PO Last administered on 12/24/18 08:57; Admin Dos e 20 GM; Start 12/23/18 at 11:30 Acetaminophen (Tylenol Tab) 325 mg Q6H PRN PO temp>100.4 Last administered on 3/5/19at 21:31; Admin Dose 325 MG; Start 12/23/18 at 17:00 Phytonadione (Vitamin K) 10 mg DAILY SC Last administered on 12/24/18at 09:01; Admin Dose 10 MG; Start 12/23/18 at 14:00; Stop 12/25/18 at 11:00 Pentoxifylline (Trental) 400 mg TID PO Last administered on 12/24/18at 08:59; Admin Dose 400 MG; Start 12/23/18 at 21:00 Morphine Sulfate (morphine) 3 mg Q4H PRN PO SEVERE PAIN LEVEL 7-10 Last administered on 12/24/18at 01:57; Admin Dose 3 MG; Start 12/23/18 at 23:30 ARON RUFFIN NP Dec 24, 2018 11:56
[2018-12-24] MEDS: OCTREOTIDE 1 MG in DEXTROSE 5% 95 ML IV SCH (15:00)
--- NOTE | 2018-12-24 16:19 | PREAC ---
Date/Time of Note Date/Time of Note DATE: 12/24/18 TIME: 16:18 Anesthesia Eval and Record Evaluation Time Pre-Procedure Interview DATE: 12/24/18 TIME: 16:18 Age 38 Sex female NPO: 8 hrs Preoperative diagnosis hematemesis Planned procedure egd Past Medical History Past Medical History: Includes Hepatic: Alcohol abuse, Cirrhosis GI: Other (gi bleed) Heme: Anemia Surgery & Anesthesia Issues No known issue Meds Anticoagulation: No Beta Olivier within 24 hr: No Reason Beta Olivier not given: Pt. not on B-Olivier Active Scripts Ferrous Sulfate* (Ferrous Sulfate*) 325 Mg Tabec, 325 MG PO TID for 30 Days, TAB Prov:JAE DAS MD 11/29/16 Pantoprazole* (Protonix*) 40 Mg Tablet.dr, 60 MG PO BID, #60 TAB Prov:JAE DAS MD 11/29/16 Current Medications IV Flush (NS 3 ml) 3 ml PER PROTOCOL IV ; Start 12/22/18 at 23:00 Octreotide Acetate 1 mg/ Dextrose 100 ml @ 5 mls/hr Q20H IV Last administered on 12/23/18at 03:30; Admin Dose 5 MLS/HR; Start 12/22/18 at 23:00 Pantoprazole 80 mg/Sodium Chloride 100 ml @ 10 mls/hr Q10H IV Last administered on 12/23/18at 03:31; Admin Dose 10 MLS/HR; Start 12/22/18 at 23:00 Ondansetron HCl (Zofran Inj) 4 mg Q4H PRN IV NAUSEA/VOMITING; Start 12/23/18 at 03:00 Lorazepam (Ativan) 1 mg Q4H PRN IV CONTROL WITHDRAWAL SYMPTOMS Last administered on 12/24/18at 03:56; Admin Dose 1 MG; Start 12/23/18 at 06:30 Chlordiazepoxide (Librium) 25 mg QID PO Last administered on 12/24/18at 09:38; Admin Dose 25 MG; Start 12/24/18 at 09:00; Stop 12/24/18 at 23:59 Chlordiazepoxide (Librium) 25 mg TID PO ; Start 12/25/18 at 09:00; Stop 12/25/18 at 23:59 Ceftriaxone Sodium 50 ml @ 100 mls/hr Q24H IVPB Last administered on 12/24/18 11:08; Admin Dose 100 MLS/HR; Start 12/23/18 at 12:00 Multivitamins 10 ml/Thiamine HCl 100 mg/Folic Acid 1 mg/Sodium Chloride 1,011.2 ml @ 125 mls/ hr DAILY@09 IVPB Last administered on 12/24/18 08:57; Admin Dose 125 MLS/HR; Start 12/24/18 at 09:00 Metoclopramide HCl (Reglan) 10 mg Q6 IV Last administered on 12/24/18 11:08; Admin Dose 10 MG; Start 12/23/18 at 12:00 Furosemide (Lasix) 40 mg DAILY PO Last administered on 12/24/18 08:58; Admin Dose 40 MG; Start 12/23/18 at 11:30 Spironolactone (Aldactone) 100 mg DAILY PO Last administered on 12/24/18 08:58; Admin Dose 100 MG; Start 12/23/18 at 11:30 Nadolol (Corgard) 40 mg DAILY PO Last administered on 12/24/18 09:00; Admin Dose 40 MG; Start 12/23/18 at 11:30 Lactulose (Enulose) 20 gm BID PO Last administered on 12/24/18 08:57; Admin Dose 20 GM; Start 12/23/18 at 11:30 Acetaminophen (Tylenol Tab) 325 mg Q6H PRN PO temp>100.4 Last administered on 12/23/18 21:31; Admin Dose 325 MG; Start 12/23/18 at 17:00 Phytonadione (Vitamin K) 10 mg DAILY SC Last administered on 12/24/18 09:01; Admin Dose 10 MG; Start 12/23/18 at 14:00; Stop 12/25/18 at 11:00 Pentoxifylline (Trental) 400 mg TID PO Last administered on 12/24/18 12:26; Admin Dose 400 MG; Start 12/23/18 at 21:00 Morphine Sulfate (morphine) 3 mg Q4H PRN PO SEVERE PAIN LEVEL 7-10 Last a dministered on 12/24/18 01:57; Admin Dose 3 MG; Start 12/23/18 at 23:30 Meds reviewed: Yes Allergies Coded Allergies: ondansetron (Verified Allergy, Intermediate, 12/23/18) Allergies Reviewed: Yes Labs/Studies Labs Reviewed: Reviewed by anesthesiologist Result Diagram: 12/23/18 1754 12/24/18 0614 Laboratory Tests 12/23/18 17:54 12/24/18 06:14 Blood Bank Test 12/23/18 19:05 Transfusion Reaction Date 12/23/18 @1755 Transfusion Reaction Symptoms FEVER Tx Reaction Implicated Unit 1 FP [id number] test: Negative Pre-procedure Exam Last vitals Vital Signs Date Temp Pulse Resp B/P (MAP) Pulse Ox O2 O2 Flow FiO2 Time Delivery Rate 12/24/18 99.5 70 18 168/78 96 Room Air 15:54 (108) Airway: Adequate mouth opening, Adequate thyromental dist Mallampati: Mallampati II Teeth: Normal Lung: Normal Heart: Normal ASA Physical Status ASA physical status: 2 Emergency: None Planned Anesthetic General/MAC: MAC Planned Pain Management Parenteral pain med Pre-operative Attestations Prior to commencing anesthesia and surgery, the patient was re-evaluated, there was verification of: *The patient's identity *The results of appropriate recent lab work and preoperative vital signs *The above evaluation not changing prior to induction *Anesthetic plan, risk benefits, alternative and complications discussed with patient/family; questions answered; patient/family understands, accepts and wishes to proceed. Ajay Beltrán M.D. Dec 24, 2018 16:19
[2018-12-24] MEDS ORDERED: FENTAnyl 50 MCG/ML VIAL ONE (16:21)
[2018-12-24] MEDS ORDERED: PROPOFOL 40 ML ONE (16:21)
[2018-12-24] MEDS ORDERED: LIDOCAINE 100 MG SYRINGE ONE (16:21)
[2018-12-24] MEDS ORDERED: TRIMETHOBENZAMIDE 100 MG/ML VIAL IM PRN (16:30)
[2018-12-24] MEDS ORDERED: IPRATROPIUM (NEB) 0.5 MG/2.5 ML AMP HHN PRN (16:30)
[2018-12-24] MEDS ORDERED: HYDROmorphONE 1 MG/5 ML IV SYRINGE IV PRN ×3 (16:30)
[2018-12-24] MEDS ORDERED: hydrALAzine 20 MG INJ IV PRN (16:30)
[2018-12-24] MEDS ORDERED: EPHEDrine SULFATE 50 MG/5 ML SYG IV PRN (16:30)
[2018-12-24] MEDS ORDERED: ALBUTEROL 0.083% (NEB) 2.5 MG/3 ML AMP HHN PRN (16:30)
[2018-12-24] MEDS ORDERED: MEPERIDINE 25 MG INJ IV PRN (16:30)
[2018-12-24] MEDS ORDERED: LABETALOL HCL 20MG INJ IV PRN (16:30)
[2018-12-24] MEDS ORDERED: MIDAZOLAM 1 MG/ML 2 ML INJ IV PRN (16:30)
[2018-12-24] MEDS ORDERED: OXYCODONE/ACETAMINOPHEN (5/325) TAB PO PRN ×2 (16:30)
[2018-12-24] MEDS ORDERED: DIPHENHYDRAMINE 50 MG INJ IV PRN (16:30)
[2018-12-24] MEDS ORDERED: FENTAnyl 50 MCG/ML VIAL IV PRN ×3 (16:30)
--- NOTE | 2018-12-24 16:42 | PAC ---
Date/Time of Note Date/Time of Note DATE: 12/24/18 TIME: 16:42 Post-Anesthesia Notes Post-Anesthesia Note Last documented vital signs Vital Signs Date Temp Pulse Resp B/P (MAP) Pulse Ox O2 O2 Flow FiO2 Time Delivery Rate 12/24/18 99.5 70 18 168/78 96 Room Air 16:42 (108) Activity: WNL Respiratory function: WNL Cardiovascular function: WNL Mental status: Baseline Pain reasonably controlled: Yes Hydration appropriate: Yes Nausea/Vomiting absent: Yes Ajay Beltrán M.D. Dec 24, 2018 16:42
[2018-12-24] MEDS: ACETAMINOPHEN 325 MG TAB PO PRN (18:45)
[2018-12-25] VITALS (11 sets, daily range): BP systolic 99–120; BP diastolic 53–71; PULSE 69–99; RESP 18–20
[2018-12-25] MEDS ORDERED: DIPHENHYDRAMINE 50 MG CAP PO ONE (04:00)
[2018-12-25] MEDS: METOCLOPRAMIDE 10 MG INJ IV SCH ×4 (05:38→18:04)
[2018-12-25] MEDS: LORAZEPAM 2 MG INJ IV PRN ×2 (05:56→15:59)
[2018-12-25] MEDS: MULTIVITAMINS 10 ML, THIAMINE 100 MG, FOLIC ACID 1 MG in SOD CHLORIDE 0.9% 1,000 ML IVPB SCH (08:25)
[2018-12-25] MEDS: PHYTONADIONE 10 MG/ML INJ SC SCH (08:26)
[2018-12-25] MEDS: PENTOXIFYLLINE (SR) 400 MG TAB PO SCH ×2 (08:27→12:19)
[2018-12-25] MEDS: FUROSEMIDE 40 MG TAB PO SCH (08:28)
[2018-12-25] MEDS: LACTULOSE 30ML CUP PO SCH (08:28)
[2018-12-25] MEDS: SPIRONOLACTONE 50 MG TAB PO SCH (08:28)
[2018-12-25] MEDS: CHLORDIAZEPOXIDE 25 MG CAP PO SCH ×2 (08:31→12:19)
[2018-12-25] MEDS: OCTREOTIDE 1 MG in DEXTROSE 5% 95 ML IV SCH (08:31)
[2018-12-25] MEDS ORDERED: POTASSIUM CHLORIDE (SR) 20 MEQ TAB PO STA (09:56)
[2018-12-25] MEDS ORDERED: SOD CHLORIDE 0.9% 250 ML IV* ONE (10:35)
--- NOTE | 2018-12-25 10:42 | PN ---
Date/Time of Note Date/Time of Note DATE: 12/25/18 TIME: 10:38 Assessment/Plan VTE Prophylaxis Risk score (from [facility])>0 risk: 2 SCD applied (from [facility] [place]): No SCD contraindicated: patient refusal Pharmacological prophylaxis: NA/contraindicated Pharm contraindication: bleeding Lines/Catheters IV Catheter Type (from [facility]): Peripheral IV Urinary Cath still in place: No Assessment/Plan Hospital Course SUBJECTIVE: This morning, patient had a bout of hematemesis again. No hematochezia/melena. No abdominal pain. OBJECTIVE: Vital signs-see below PHYSICAL EXAM: Constitutional: Disheveled young female, intoxicated with alcohol psych: uncooperative. nl mood/affect, no complaints Head: atraumatic, normocephalic Eyes: nl conjunctiva, nl sclera ENMT: mucosa pink and moist, nl external ears & nose Neck: non-tender, supple Respiratory: clear to auscultation, normal air movement Cardiovascular: nl pulses, regular rate and rhythm Gastrointestinal: non-tender, soft, bowel sounds active in all 4 quadrants. Musculoskeletal/extremities: nl extremities to inspection, motor strength equal bilaterally, no focal deficit. Normal pulses,no cyanosis, no edema. Neurological:. Alert oriented 3,nl speech, nl strength Skin: nl turgor ASSESSMENT/PLAN: 38-year-old female with alcohol abuse, alcoholic liver disease, pancytopenia, transferred from outside hospital for management for hematemesis.. 1. Hematemesis/GI bleed -Status post EGD 12/24/2018, no evidence of esophageal variceal bleeding or other GI source of bleeding. -This morning, patient again had hematemesis, will obtain stat CBC. GI to follow-up. -Continue PPI/octreotide gtt/Naldol 2. Acute blood loss anemia secondary to #1 -Stable H&H after multiple transfusion. -Continue to monitor. 3. Coagulopathy/thrombocytopenia/pancytopenia secondary to alcoholic liver disease. -s/p vit k, FFP's, platelets=> platelet count to 19,000 today, will transfuse 1 unit platelet in light of patient with hematemesis. -cont. bleeding precautions. -Avoid antiplatelet/anticoagulants. 4. Transaminitis -Patient refused MRCP as she is claustrophobic as such we will proceed w/ a HIDA. Abdominal exam benign. So this could be likely alcoholic hepatitis transaminitis. -Follow-up GI recommendations. 5. Decompensated alcoholic liver cirrhosis with ascites -s/p paracentesis with 1.9 L out 12/23/2018, follow-up fluid studies. -cont. Lasix, Aldactone -lactulose for hepatic encephalopathy prophylaxis. -Follow-up GI recommendations 6. EtOH abuse -cont.banana bag, withdrawal protocol with Librium and as needed Ativan -hot blast worker to assist patient with finding resources. 7. Noncompliance -Advised on cooperating with treatment and intervention. DVT prophylaxis: SCDs PUD prophylaxis: Protonix CODE STATUS: Full code Diet: N.p.o. except medications. Disposition: Continue current management. follow-up GI recommendations. Patient was seen in collaboration with Dr. Avery. Result Diagram: 12/25/18 0618 12/25/18 0624 Results 24hrs Laboratory Tests Test 12/25/18 06:18 12/25/18 06:24 12/25/18 07:35 White Blood Count 1.7 #L Red Blood Count 3.10 L Hemoglobin 9.5 L Hematocrit 29.0 L Mean Corpuscular Volume 93.5 Mean Corpuscular Hemoglobin 30.6 Mean Corpuscular 32.8 Hemoglobin Concent Red Cell Distribution Width 17.4 H Platelet Count 19 #*L Mean Platelet Volume Immature Granulocytes % 0.000 L Neutrophils % 47.0 Lymphocytes % 35.7 Monocytes % 13.7 H Eosinophils % 2.4 Basophils % 1.2 Nucleated Red Blood Cells % 0.0 Immature Granulocytes # 0.000 Neutrophils # 0.8 L Lymphocytes # 0.6 L Monocytes # 0.2 L Eosinophils # 0.0 Basophils # 0.0 Nucleated Red Blood Cells # 0.0 Iron Level 34 L Total Iron Binding Capacity Pending Percent Iron Saturation Pending Prothrombin Time 24.0 H Prothrombin Time Ratio 1.9 INR International 2.14 Normalized Ratio Activated Partial Thromboplast 40.5 H Time Sodium Level 138 Potassium Level 3.3 L Chloride Level 101 Carbon Dioxide Level 27 Anion Gap 10 Blood Urea Nitrogen 5 L Creatinine 0.65 Est Glomerular Filtrat > 60 Rate mL/min Glucose Level 83 Calcium Level 7.6 L Total Bilirubin 3.9 H Direct Bilirubin 1.10 H Indirect Bilirubin 2.8 H Aspartate Amino Transf (AST/SGOT) 87 H Alanine 37 Aminotransferase (ALT/SGPT) Alkaline Phosphatase 111 Total Protein 6.6 Albumin 2.8 L Globulin 3.80 H Albumin/Globulin Ratio 0.73 Lab Scanned Report BLOOD TRANSFUSION Exam/Review of Systems Exam Vitals Vital Signs Date Temp Pulse Resp B/P (MAP) Pulse Ox O2 O2 Flow FiO2 Time Delivery Rate 12/25/18 82 09:04 12/25/18 98.6 18 106/68 97 Room Air 08:06 (81) Intake and Output 12/24/18 12/24/18 12/25/18 1515:00 23:00 07:00 IntakeIntake Total 600 ml 450 ml BalanceBalance 600 ml 450 ml Results Results 24hrs Laboratory Tests Test 12/25/18 06:18 12/25/18 06:24 12/25/18 07:35 White Blood Count 1.7 #L Red Blood Count 3.10 L Hemoglobin 9.5 L Hematocrit 29.0 L Mean Corpuscular Volume 93.5 Mean Corpuscular Hemoglobin 30.6 Mean Corpuscular 32.8 Hemoglobin Concent Red Cell Distribution Width 17.4 H Platelet Count 19 #*L Mean Platelet Volume Immature Granulocytes % 0.000 L Neutrophils % 47.0 Lymphocytes % 35.7 Monocytes % 13.7 H Eosinophils % 2.4 Basophils % 1.2 Nucleated Red Blood Cells % 0.0 Immature Granulocytes # 0.000 Neutrophils # 0.8 L Lymphocytes # 0.6 L Monocytes # 0.2 L Eosinophils # 0.0 Basophils # 0.0 Nucleated Red Blood Cells # 0.0 Iron Level 34 L Total Iron Binding Capacity Pending Percent Iron Saturation Pending Prothrombin Time 24.0 H Prothrombin Time Ratio 1.9 INR International 2.14 Normalized Ratio Activated Partial Thromboplast 40.5 H Time Sodium Level 138 Potassium Level 3.3 L Chloride Level 101 Carbon Dioxide Level 27 Anion Gap 10 Blood Urea Nitrogen 5 L Creatinine 0.65 Est Glomerular Filtrat > 60 Rate mL/min Glucose Level 83 Calcium Level 7.6 L Total Bilirubin 3.9 H Direct Bilirubin 1.10 H Indirect Bilirubin 2.8 H Aspartate Amino Transf (AST/SGOT) 87 H Alanine 37 Aminotransferase (ALT/SGPT) Alkaline Phosphatase 111 Total Protein 6.6 Albumin 2.8 L Globulin 3.80 H Albumin/Globulin Ratio 0.73 Lab Scanned Report BLOOD TRANSFUSION Medications Medication Current Medications IV Flush (NS 3 ml) 3 ml PER PROTOCOL IV ; Start 12/22/18 at 23:00 Octreotide Acetate 1 mg/ Dextrose 100 ml @ 5 mls/hr Q20H IV Last administered on 12/25/18 08:31; Admin Dose 5 MLS/HR; Start 12/22/18 at 23:00 Pantoprazole 80 mg/Sodium Chloride 100 ml @ 10 mls/hr Q10H IV Last admi nistered on 12/24/18 23:35; Admin Dose 10 MLS/HR; Start 12/22/18 at 23:00 Lorazepam (Ativan) 1 mg Q4H PRN IV CONTROL WITHDRAWAL SYMPTOMS Last administered on 12/25/18 05:56; Admin Dose 1 MG; Start 12/23/18 at 06:30 Chlordiazepoxide (Librium) 25 mg TID PO Last administered on 12/25/18 08:31; Admin Dose 25 MG; Start 12/25/18 at 09:00; Stop 12/25/18 at 23:59 Ceftriaxone Sodium 50 ml @ 100 mls/hr Q24H IVPB Last administered on 12/24/18 11:08; Admin Dose 100 MLS/HR; Start 12/23/18 at 12:00 Multivitamins 10 ml/Thiamine HCl 100 mg/Folic Acid 1 mg/Sodium Chloride 1,011.2 ml @ 125 mls/ hr DAILY@09 IVPB Last administered on 12/25/18 08:25; Admin Dose 125 MLS/HR; Start 12/24/18 at 09:00 Metoclopramide HCl (Reglan) 10 mg Q6 IV Last administered on 12/25/18 05:57; Admin Dose 10 MG; Start 12/23/18 at 12:00 Furosemide (Lasix) 40 mg DAILY PO Last administered on 12/25/18 08:28; Admin Dose 40 MG; Start 12/23/18 at 11:30 Spironolactone (Aldactone) 100 mg DAILY PO Last administered on 12/25/18 08:28; Admin Dose 100 MG; Start 12/23/18 at 11:30 Nadolol (Corgard) 40 mg DAILY PO Last administered on 12/24/18 09:00; Admin Dose 40 MG; Start 12/23/18 at 11:30 Lactulose (Enulose) 20 gm BID PO Last administered on 12/25/18 08:28; Admin Dose 20 GM; Start 12/23/18 at 11:30 Acetaminophen (Tylenol Tab) 325 mg Q6H PRN PO temp>100.4 Last administered on 12/24/18at 18:45; Admin Dose 325 MG; Start 12/23/18 at 17:00 Phytonadione (Vitamin K) 10 mg DAILY SC Last administered on 12/25/18at 08:26; Admin Dose 10 MG; Start 12/23/18 at 14:00; Stop 12/25/18 at 11:00 Pentoxifylline (Trental) 400 mg TID PO Last administered on 12/25/18at 08:27; Admin Dose 400 MG; Start 12/23/18 at 21:00 Morphine Sulfate (morphine) 3 mg Q4H PRN PO SEVERE PAIN LEVEL 7-10 Last administered on 12/24/18at 23:29; Admin Dose 3 MG; Start 12/23/18 at 23:30 Meperidine HCl (Demerol) 25 mg PACU ORDER PRN IV .RIGORS; Start 12/24/18 at 16:30 Diphenhydramine HCl (Benadryl) 25 mg PACU ORDER PRN IV .PRURITUS; Start 12/24/18 at 16:30 Midazolam HCl (Versed) 0.5 mg PACU ORDER PRN IV .ANXIETY; Start 12/24/18 at 16:30 Miscellaneous Information Patients own medicat... BID@10,16 XX ; Start 12/25/18 at 10:00 ARON RUFFIN NP Dec 25, 2018 10:42
[2018-12-25] MEDS: PANTOPRAZOLE IV 80 MG in SOD CHLORIDE 0.9% 100 ML IV SCH (11:19)
[2018-12-25] MEDS: CEFTRIAXONE 1 GM/50 ML (PMX) 50 ML IVPB SCH (11:20)
--- NOTE | 2018-12-25 11:53 | PN ---
Date/Time of Note Date/Time of Note DATE: 12/25/18 TIME: 11:48 Assessment/Plan VTE Prophylaxis Risk score (from Ns)>0 risk: 2 SCD applied (from Ns): No SCD contraindicated: other (scds) Pharmacological prophylaxis: other (scds) Lines/Catheters IV Catheter Type (from [facility]): Peripheral IV Urinary Cath still in place: No Assessment/Plan Hospital Course Summary Assessment and Plan: Assessment: Hematemesis/melena EGD 12/24/18 Evidence of previous endoscopic variceal ligation with scarring of the esophagus No significant esophageal varices Mild distal esophagitis Portal hypertensive gastropathy, moderate to severe Rule out H. pylori infection, biopsies obtained Otherwise normal EGD Alcoholic hepatitis - DF- 46 Decompensated alcoholic liver cirrhosis portal hypertension -Last EGD about 1 year ago status post EVL Profound pancytopenia Coagulopathy EtOH abuse Indirect hyperbilirubinemia Plan: Patient with an episode of hematemesis today we will continue PPI/Octreotide the next 24 hours if hemoglobin remained stable no further episodes of hematemesis we will DC octreotide and change PPI to twice daily Continue pentoxifylline for alcoholic hepatitis instead of methylpredisolone given profound pancytopenia As noted above patient with episode of hematemesis today and thrombocytopenia platelets have been ordered Maintain close observation and overt signs of GI bleed Will recheck HGB at 1200- further recommendations based on clinical course Patient seen in collaboration with Dr. Salazar/Serafin Subjective: Course reviewed with nursing staff Patient interviewed and examined All labs, imaging and other results reviewed Patient is more alert today discussed results of EGD patient now states last EGD was in October of this year she remembers ligation. Patient did have an episode of hematemesis described as small to moderate hemoglobin currently stable we will treat recheck at noon Platelets have been ordered currently pending. Patient denies abdominal pain currently or further episodes of nausea vomiting. We will maintain close PHYSICAL EXAMINATION: GENERAL: Alert & oriented x 3- SKIN: No lesions EYES: Pupils equal reactive to light, no discharge. EARS/NOSE AND THROAT: Ears normal, nose normal NECK: Supple, no masses CHEST: Inspection within normal limits. CARDIOVASCULAR: Heart: Regular rate and rhythm RESPIRATORY: Lungs clear to auscultation GASTROINTESTINAL AND LIVER: Abdomen: Soft, non tenderness, normoactive bowel sounds. Rectal: Deferred. Result Diagram: 3/7/19 0618 3/7/19 0624 Results 24hrs Laboratory Tests Test 12/25/18 06:18 12/25/18 06:24 12/25/18 07:35 White Blood Count 1.7 #L Red Blood Count 3.10 L Hemoglobin 9.5 L Hematocrit 29.0 L Mean Corpuscular Volume 93.5 Mean Corpuscular Hemoglobin 30.6 Mean Corpuscular 32.8 Hemoglobin Concent Red Cell Distribution Width 17.4 H Platelet Count 19 #*L Mean Platelet Volume Immature Granulocytes % 0.000 L Neutrophils % 47.0 Lymphocytes % 35.7 Monocytes % 13.7 H Eosinophils % 2.4 Basophils % 1.2 Nucleated Red Blood Cells % 0.0 Immature Granulocytes # 0.000 Neutrophils # 0.8 L Lymphocytes # 0.6 L Monocytes # 0.2 L Eosinophils # 0.0 Basophils # 0.0 Nucleated Red Blood Cells # 0.0 Iron Level 34 L Total Iron Binding Capacity 296 Percent Iron Saturation 11 L Prothrombin Time 24.0 H Prothrombin Time Ratio 1.9 INR International 2.14 Normalized Ratio Activated Partial Thromboplast 40.5 H Time Sodium Level 138 Potassium Level 3.3 L Chloride Level 101 Carbon Dioxide Level 27 Anion Gap 10 Blood Urea Nitrogen 5 L Creatinine 0.65 Est Glomerular Filtrat > 60 Rate mL/min Glucose Level 83 Calcium Level 7.6 L Total Bilirubin 3.9 H Direct Bilirubin 1.10 H Indirect Bilirubin 2.8 H Aspartate Amino Transf (AST/SGOT) 87 H Alanine 37 Aminotransferase (ALT/SGPT) Alkaline Phosphatase 111 Total Protein 6.6 Albumin 2.8 L Globulin 3.80 H Albumin/Globulin Ratio 0.73 Lab Scanned Report BLOOD TRANSFUSION Exam/Review of Systems Exam Vitals Vital Signs Date Temp Pulse Resp B/P (MAP) Pulse Ox O2 O2 Flow FiO2 Time Delivery Rate 12/25/18 82 09:04 12/25/18 98.6 18 106/68 97 Room Air 08:06 (81) Intake and Output 12/24/18 12/24/18 12/25/18 1515:00 23:00 07:00 IntakeIntake Total 600 ml 450 ml BalanceBalance 600 ml 450 ml Results Results 24hrs Laboratory Tests Test 12/25/18 06:18 12/25/18 06:24 12/25/18 07:35 White Blood Count 1.7 #L Red Blood Count 3.10 L Hemoglobin 9.5 L Hematocrit 29.0 L Mean Corpuscular Volume 93.5 Mean Corpuscular Hemoglobin 30.6 Mean Corpuscular 32.8 Hemoglobin Concent Red Cell Distribution Width 17.4 H Platelet Count 19 #*L Mean Platelet Volume Immature Granulocytes % 0.000 L Neutrophils % 47.0 Lymphocytes % 35.7 Monocytes % 13.7 H Eosinophils % 2.4 Basophils % 1.2 Nucleated Red Blood Cells % 0.0 Immature Granulocytes # 0.000 Neutrophils # 0.8 L Lymphocytes # 0.6 L Monocytes # 0.2 L Eosinophils # 0.0 Basophils # 0.0 Nucleated Red Blood Cells # 0.0 Iron Level 34 L Total Iron Binding Capacity 296 Percent Iron Saturation 11 L Prothrombin Time 24.0 H Prothrombin Time Ratio 1.9 INR International 2.14 Normalized Ratio Activated Partial Thromboplast 40.5 H Time Sodium Level 138 Potassium Level 3.3 L Chloride Level 101 Carbon Dioxide Level 27 Anion Gap 10 Blood Urea Nitrogen 5 L Creatinine 0.65 Est Glomerular Filtrat > 60 Rate mL/min Glucose Level 83 Calcium Level 7.6 L Total Bilirubin 3.9 H Direct Bilirubin 1.10 H Indirect Bilirubin 2.8 H Aspartate Amino Transf (AST/SGOT) 87 H Alanine 37 Aminotransferase (ALT/SGPT) Alkaline Phosphatase 111 Total Protein 6.6 Albumin 2.8 L Globulin 3.80 H Albumin/Globulin Ratio 0.73 Lab Scanned Report BLOOD TRANSFUSION Medications Medication Current Medications IV Flush (NS 3 ml) 3 ml PER PROTOCOL IV ; Start 12/22/18 at 23:00 Octreotide Acetate 1 mg/ Dextrose 100 ml @ 5 mls/hr Q20H IV Last administered on 12/25/18 08:31; Admin Dose 5 MLS/HR; Start 12/22/18 at 23:00 Pantoprazole 80 mg/Sodium Chloride 100 ml @ 10 mls/hr Q10H IV Last administered on 12/25/18at 11:19; Admin Dose 10 MLS/HR; Start 12/22/18 at 23:00 Lorazepam (Ativan) 1 mg Q4H PRN IV CONTROL WITHDRAWAL SYMPTOMS Last administered on 12/25/18at 05:56; Admin Dose 1 MG; Start 12/23/18 at 06:30 Chlordiazepoxide (Librium) 25 mg TID PO Last administered on 12/25/18at 08:31; Admin Dose 25 MG; Start 12/25/18 at 09:00; Stop 12/25/18 at 23:59 Ceftriaxone Sodium 50 ml @ 100 mls/hr Q24H IVPB Last administered on 12/25/18 11:20; Admin Dose 100 MLS/HR; Start 12/23/18 at 12:00 Multivitamins 10 ml/Thiamine HCl 100 mg/Folic Acid 1 mg/Sodium Chloride 1,011.2 ml @ 125 mls/ hr DAILY@09 IVPB Last administered on 12/25/18 08:25; Admin Dose 125 MLS/HR; Start 12/24/18 at 09:00 Metoclopramide HCl (Reglan) 10 mg Q6 IV Last administered on 12/25/18 11:19; Admin Dose 10 MG; Start 12/23/18 at 12:00 Furosemide (Lasix) 40 mg DAILY PO Last administered on 12/25/18 08:28; Admin Dose 40 MG; Start 12/23/18 at 11:30 Spironolactone (Aldactone) 100 mg DAILY PO Last administered on 12/25/18 08:28; Admin Dose 100 MG; Start 12/23/18 at 11:30 Nadolol (Corgard) 40 mg DAILY PO Last administered on 12/24/18 09:00; Admin Dose 40 MG; Start 12/23/18 at 11:30 Lactulose (Enulose) 20 gm BID PO Last administered on 12/25/18 08:28; Admin Dose 20 GM; Start 12/23/18 at 11:30 Acetaminophen (Tylenol Tab) 325 mg Q6H PRN PO temp>100.4 Last administered on 12/24/18 18:45; Admin Dose 325 MG; Start 12/23/18 at 17:00 Pentoxifylline (Trental) 400 mg TID PO Last administered on 12/25/18 08:27; Admin Dose 400 MG; Start 12/23/18 at 21:00 Morphine Sulfate (morphine) 3 mg Q4H PRN PO SEVERE PAIN LEVEL 7-10 Last administered on 12/24/18 23:29; Admin Dose 3 MG; Start 12/23/18 at 23:30 Meperidine HCl (Demerol) 25 mg PACU ORDER PRN IV .RIGORS; Start 12/24/18 at 16:30 Diphenhydramine HCl (Benadryl) 25 mg PACU ORDER PRN IV .PRURITUS; Start 12/24/18 at 16:30 Midazolam HCl (Versed) 0.5 mg PACU ORDER PRN IV .ANXIETY; Start 12/24/18 at 16:30 Miscellaneous Information Patients own medicat... BID@10,16 XX ; Start 12/25/18 at 10:00 JOAO ZHAO Dec 25, 2018 11:53
[2018-12-25] MEDS: NADOLOL 40 MG TAB PO SCH (12:19)
--- NOTE | 2018-12-26 13:21 | DS ---
Date/Time of Note Date/Time of Note DATE: 12/26/18 TIME: 13:19 Discharge Summary Admission/Discharge Info Admit Date/Time Dec 22, 2018 at 21:39 Discharge Date/Time Dec 25, 2018 at 21:50 (Against medical advice) Discharge Diagnosis 1. Hematemesis/GI bleed -Status post EGD 12/24/2018, no evidence of esophageal variceal bleeding or other GI source of bleeding. 2. Acute blood loss anemia secondary to #1 3. Coagulopathy/thrombocytopenia/pancytopenia secondary to alcoholic liver disease. 4. Transaminitis 5. Decompensated alcoholic liver cirrhosis with ascites -s/p paracentesis with 1.9 L out 12/23/2018, follow-up fluid studies. 6. EtOH abuse 7. Noncompliance Consults , gastroenterology Procedures 02/2019. Ultrasound-guided paracentesis with Approximately 1.9 liters of serous fluid was aspirated and sent for laboratory analysis 12/23/2018. Ultrasound liver. IMPRESSION: 1. Heterogeneous appearance of the liver with associated nodular contour, likely indicating cirrhosis. 2. Moderate volume free fluid in the right upper abdomen. 3. Common bile duct dilated to a diameter of 9.8 mm, possibly chronic postsurgical ectasia secondary to cholecystectomy. Hospital Course 38-year-old female with alcohol abuse, alcoholic liver disease, pancytopenia, transferred from outside hospital for management for hematemesis.. Patient was continued on PPI, naldol,octreotide. She was being followed by GI and was also started on pentoxifylline for alcoholic hepatitis. Patient underwent EGD 12/24/2018, no evidence of esophageal variceal bleeding or other GI source of bleeding. Patient required multiple transfusion of PRBC, platelet and FFP to correct her blood loss anemia secondary to GI bleed and coagulopathy/thrombocytopenia/pancytopenia secondary to alcoholic liver disease. She was counseled on alcohol cessation. She was given withdrawal protocol, but antibiotics. Patient also had transaminitis for which she refused MRI evaluation to rule out choledocholithiasis. A HIDA scan also was nondiagnostic. Most likely transaminitis is also caused by alcoholic hepatitis. Patient also required paracentesis on 12/23/2018 secondary to ascites and decompensated alcoholic liver cirrhosis. Initial studies negative for SBP. She was continued on pentoxifylline, Lasix, Aldactone, and lactulose. As the plan was to keep patient in-house to correct coagulopathy, further GI workup, she decided to leave AGAINST MEDICAL ADVICE. Despite our efforts, patient had decided to leave AGAINST MEDICAL ADVICE. Patient has normal mental status and full decisional capacity. Patient understood her condition and the risk of leaving AMA, including but not limited to permanent disability, etc., and had an opportunity to ask questions about own medical condition. The patient has been informed that the paient may return for care anytime and has been referred to primary care provider for follow-up as soon as possible. Case discussed with [facility] Ferrous Sulfate* (Ferrous Sulfate*) 325 Mg Tabec, 325 MG PO TID for 30 Days, TAB Prov:JAE DAS MD 11/29/16 Pantoprazole* (Protonix*) 40 Mg Tablet., 60 MG PO BID, #60 TAB Prov:JAE DAS MD 11/29/16 Primary Care Provider Care Physician No Primary ARON RUFFIN NP Dec 26, 2018 13:21
== END 2018-12-25 21:50 | disposition left against medical advice (07) | DRG 378 ==
LOC: TEL 21:39
PROVIDERS: ADMIT Internal Medicine; ATTEND Internal Medicine
PROC: 30233R1 Transfusion of Nonautologous Platelets into Peripheral Vein, Percutaneous Approach (ICD-10-PCS; 2018-12-22)
PROC: 30233N1 Transfusion of Nonautologous Red Blood Cells into Peripheral Vein, Percutaneous Approach (ICD-10-PCS; 2018-12-22)
PROC: 30233K1 Transfusion of Nonautologous Frozen Plasma into Peripheral Vein, Percutaneous Approach (ICD-10-PCS; 2018-12-23)
PROC: 30233N1 Transfusion of Nonautologous Red Blood Cells into Peripheral Vein, Percutaneous Approach (ICD-10-PCS; 2018-12-23)
PROC: 0W9G30Z Drainage of Peritoneal Cavity with Drainage Device, Percutaneous Approach (ICD-10-PCS; 2018-12-23)
PROC: 30233R1 Transfusion of Nonautologous Platelets into Peripheral Vein, Percutaneous Approach (ICD-10-PCS; 2018-12-24)
PROC: 0DB68ZX Excision of Stomach, Via Natural or Artificial Opening Endoscopic, Diagnostic (ICD-10-PCS; 2018-12-24)
PROC: 30233K1 Transfusion of Nonautologous Frozen Plasma into Peripheral Vein, Percutaneous Approach (ICD-10-PCS; principal; 2018-12-24 17:30)
PROC: 30233R1 Transfusion of Nonautologous Platelets into Peripheral Vein, Percutaneous Approach (ICD-10-PCS; 2018-12-25)
DX: K92.0 Hematemesis (principal); D62 Acute posthemorrhagic anemia; K76.6 Portal hypertension; D61.818 Other pancytopenia; D69.59 Other secondary thrombocytopenia; K70.31 Alcoholic cirrhosis of liver with ascites; K72.90 Hepatic failure, unspecified without coma; D75.89 Other specified diseases of blood and blood-forming organs; F10.10 Alcohol abuse, uncomplicated; Y90.8 Blood alcohol level of 240 mg/100 ml or more; K31.89 Other diseases of stomach and duodenum; Z91.19 Patient's noncompliance with other medical treatment and regimen
CPT/HCPCS: 36430; 71045; 76705; 78226; 80053; 80061; 80307; 81003; 82140; 82150; 83036; 83540; 83615; 83690; 83735; 84157; 84443; 85014; 85018; 85025; 85045; 85610; 85730; 86078; 86850; 86870; 86900; 86901; 86920; 87070; 87086; 87102; 87116; 88104; 88305; 88312; 89051; J1800; A9537; C9113; J0696; J1200; J2001; J2060; J2270; J2354; J2405; J2765; J3010; J3411; J3480; J7030; J7040; J7510; P9016; P9035; P9059

== ENCOUNTER 2018-12-31 18:47 | Inpatient (IN) | payer BC ==
[~2018-12-31] VITALS: Ht 157.5 cm; Wt 69.3 kg
[2018-12-31 21:28] VITALS: PULSE 106
[2018-12-31 21:45] VITALS: Ht 157.5 cm; Wt 69.3 kg
[2018-12-31] MEDS ORDERED: HALOPERIDOL 5 MG INJ ONE (21:55)
[2018-12-31] MEDS ORDERED: HALOPERIDOL 5 MG INJ IM ONE ×2 (22:00→22:30)
[2018-12-31 22:11] VITALS: PULSE 151
[2018-12-31] MEDS ORDERED: LORAZEPAM 2 MG INJ IV ONE (22:30)
--- NOTE | 2018-12-31 23:58 | HP ---
Date/Time of Note Date/Time of Note DATE: 12/31/18 TIME: 23:58 Assessment/Plan VTE Prophylaxis Pharmacological prophylaxis: heparin Lines/Catheters IV [facility] Saline Lock Assessment/Plan Assessment/Plan 1. Hepatic encephalopathy -Continue lactulose -will add rifaximin 2. Decompensated alcoholic liver cirrhosis, with ascites, coagulopathy and GI bleed -Will consider ultrasound to evaluate for ascites. Underwent paracentesis last week with removal of almost a liter. 3. History of alcohol abuse -Will be placed on a banana bag 4. Pancytopenia: Secondary to #2 5. History of hematemesis: Patient underwent EGD last week without finding of active bleeding -PPI 6. Anemia: From blood loss and liver disease/toxic effect of alcohol -Monitor hemoglobin closely. Transfuse as needed 7. Hypokalemia: Replete HPI/ROS Admit Date/Time Admit Date/Time Dec 31, 2018 at 21:20 Hx of Present Illness This is a 38-year-old female with a history of decompensated alcoholic liver cirrhosis ascites, coagulopathy, pancytopenia and history of GI bleed. Patient was transferred from an outside hospital for insurance reason after presented with altered mentation. Currently patient agitated requiring sedatives and restraints. She was recently admitted here for hematemesis and was discharged last week. At that time EGD without source of active bleeding. Liver ultrasound at that time also shows ascites and dilated CBD measuring 9.8 mm. Underwent paracentesis with removal of 1.9 L. Patient refused MRCP, but a HIDA was done which was nondiagnostic. PMH/Family/Social Past Medical History Past Surgical History Past Surgical Hx: other (see hpi) Family History Significant Family History: no pertinent family hx Social History Alcohol Use: other Smoking Status: Unknown if ever smoked Drug Use: other Exam Constitutional: other (no acute distress) Eyes: PERRL ENMT: nl external ears & nose Neck: supple Respiratory: normal air movement Cardiovascular: nl pulses Gastrointestinal: soft Extremities: normal pulses Coded Allergies: ondansetron (Verified Allergy, Intermediate, 12/23/18) Family History Significant Family History: no pertinent family hx Social History Smoking Status: Never smoker Exam/Review of Systems Vital Signs Vitals Vital Signs Date Temp Pulse Resp B/P (MAP) Pulse Ox O2 O2 Flow FiO2 Time Delivery Rate 12/31/18 151 22:11 AMDE,JUANITO MD Dec 31, 2018 23:58
[2019-01-01] VITALS (7 sets, daily range): BP systolic 96–143; BP diastolic 59–92; PULSE 76–140; RESP 18–20
[2019-01-01] MEDS ORDERED: NACL 0.9% 3 ML SYG IV SCH
[2019-01-01] MEDS ORDERED: DEXTROSE 5%-0.45% NACL 1,000 ML IV SCH
[2019-01-01] MEDS ORDERED: ALBUTEROL/IPRATROPIUM (NEB) 3 ML AMP HHN PRN
[2019-01-01] MEDS ORDERED: LORAZEPAM 2 MG INJ IV PRN
[2019-01-01] MEDS ORDERED: PROP10TA6 PO (00:17)
[2019-01-01] MEDS ORDERED: FURO20TA3 PO (00:17)
[2019-01-01] MEDS ORDERED: PENT400T9 PO (00:17)
[2019-01-01] MEDS ORDERED: LACT20SO2 PO (00:17)
[2019-01-01] MEDS ORDERED: SPIR100T4 PO (00:17)
[2019-01-01] MEDS ORDERED: GABA100C14 PO (00:17)
[2019-01-01] MEDS ORDERED: THIA50TA7 PO (00:17)
[2019-01-01] MEDS ORDERED: HYDR-2086 PO (00:17)
[2019-01-01] MEDS ORDERED: DOCU-144 PO (00:17)
[2019-01-01] MEDS ORDERED: MAGN400O19 PO (00:17)
[2019-01-01] MEDS ORDERED: POTASSIUM CHLORIDE 50 ML IVPB ONE (01:30)
[2019-01-01] MEDS: POTASSIUM CHLORIDE 100 ML IVPB SCH ×3 (02:04→06:09)
[2019-01-01] MEDS ORDERED: PANTOPRAZOLE 40 MG INJ IV SCH (03:00)
[2019-01-01] MEDS ORDERED: FAMOTIDINE 20 MG INJ IV SCH (06:00)
[2019-01-01] MEDS ORDERED: MULTIVITAMINS 10 ML, THIAMINE 100 MG, FOLIC ACID 1 MG in SOD CHLORIDE 0.9% 1,000 ML IVPB SCH (09:00)
[2019-01-01] MEDS ORDERED: POTASSIUM CHLORIDE (SR) 20 MEQ TAB PO STA (12:44)
[2019-01-01] MEDS ORDERED: MAGNESIUM SULFATE 2 GM/50 ML 50 ML IVPB ONE (13:00)
--- NOTE | 2019-01-01 13:00 | DS ---
Date/Time of Note Date/Time of Note DATE: 01/01/19 TIME: 12:51 Discharge Summary Admission/Discharge Info Admit Date/Time Dec 31, 2018 at 21:20 Discharge Date/Time Discharge Diagnosis 1. Hepatic encephalopathy, improving, on lactulose and rifaximin 2. Decompensated alcoholic liver cirrhosis, with ascites, coagulopathy and recent GI bleed, US to evaluate ascites 3. Alcohol abuse 4. Pancytopenia: Secondary to #2, ordered 1 unit PRBC 5. History of hematemesis: Patient underwent EGD last week without finding of active bleeding, onb PPI 6. Hypokalemia: KCL 7. Hypomagnesemia, Mg 8. Patient signed AMA Patient Condition: Fair Hospital Course his is a 38-year-old female with a history of decompensated alcoholic liver cirrhosis ascites, coagulopathy, pancytopenia and history of GI bleed. Patient was transferred from an outside hospital for insurance reason after presented with altered mentation. Currently patient agitated requiring sedatives and restraints. She was recently admitted here for hematemesis and was discharged last week. At that time EGD without source of active bleeding. Liver ultras ound at that time also shows ascites and dilated CBD measuring 9.8 mm. Underwent paracentesis with removal of 1.9 L. Patient refused MRCP, but a HIDA was done which was nondiagnostic. For altered mental status, she is taking lactulose and rifaximin for hepatic encephalopathy, patient is alert and oriented today. H/H are low at 6.6./21.3, one unit PRBC is ordered. K 2.8 that K supplement is given. Mg 1.6, magnesium supplement is ordered. Patient signed AMA even after the staff and myself explained the importance of the treatment and consequence of leaving without treatment. She understands the risk and she insists on leaving with AMA. Home Meds Active Scripts Ferrous Sulfate* (Ferrous Sulfate*) 325 Mg Tabec, 325 MG PO TID for 30 Days, TAB Prov:JAE DAS MD 11/29/16 Pantoprazole* (Protonix*) 40 Mg Tablet.dr, 60 MG PO BID, #60 TAB Prov:JAE DAS MD 11/29/16 Reported Medications Hydrocodone Bit-Acetaminophen* (Vicodin*) 5-300 Tab, 1 TAB PO Q4H PRN for PAIN, TAB 01/01/19 Propranolol Hcl* (Propranolol Hcl*) 10 Mg Tablet, 10 MG PO Q12, TAB 01/01/19 Spironolactone* (Spironolactone*) 100 Mg Tablet, 100 MG PO DAILY, TAB 01/01/19 Thiamine* (Thiamine*) 50 Mg Tablet, 100 MG PO DAILY, TAB 01/01/19 Magnesium Hydroxide* (Milk Of Magnesia*) 400 Mg/5 Ml Oral.susp, 30 ML PO DAILY, ML 01/01/19 Gabapentin* (Gabapentin*) 100 Mg Capsule, 200 MG PO TID, #180 CAP 01/01/19 Furosemide* (Furosemide*) 20 Mg Tablet, 20 MG PO DAILY, #60 TAB 01/01/19 Docusate Sodium* (Colace*) 100 Mg Capsule, 100 MG PO BID, #60 CAP 01/01/19 Pentoxifylline* (Pentoxifylline*) 400 Mg Tablet.sa, 400 MG PO TID, TAB 01/01/19 Lactulose* (Lactulose*) 20 Gm/30 Ml Solution, 20 GM PO Q6H for CONSTIPATION, ML 01/01/19 Follow-up Plan follow up with PCP and GI as soon as possible Primary Care Provider Care Physician No Primary Pending Labs Laboratory Tests Test 01/01/19 00:34 01/01/19 05:46 White Blood Count 4.5 10^3/ul (4.8-10.8) Red Blood Count 2.24 10^6/ul (4.20-5.40) Hemoglobin 6.6 g/dl (12.0-16.0) Hematocrit 21.3 % (37.0-47.0) Mean Corpuscular Volume 95.1 fl (82.0-101.0) Mean Corpuscular Hemoglobin 29.5 pg (29.0-33.0) Mean Corpuscular 31.0 g/dl (32.0-37.0) Hemoglobin Concent Red Cell Distribution Width 18.2 % (11.5-14.5) Platelet Count 52 10^3/UL (140-415) Mean Platelet Volume 12.5 fl (7.4-10.4) Immature Granulocytes % 0.900 % (0.001-0.429) Neutrophils % 68.3 % (39.0-77.0) Lymphocytes % 16.7 % (15.0-51.0) Monocytes % 12.7 % (0.0-11.0) Eosinophils % 0.7 % (0.0-7.0) Basophils % 0.7 % (0.0-2.0) Nucleated Red Blood Cells % 0.0 /100WBC (0.0-0.0) Immature Granulocytes # 0.040 10^3/ul (0.0-0.031) Neutrophils # 3.1 10^3/ul (1.6-7.5) Lymphocytes # 0.8 10^3/ul (0.8-2.9) Monocytes # 0.6 10^3/ul (0.3-0.9) Eosinophils # 0.0 10^3/ul (0.0-0.5) Basophils # 0.0 10^3/ul (0.0-0.1) Nucleated Red Blood Cells # 0.0 10^3/ul (0.0-0.0) Sodium Level 133 mmol/L (135-144) Potassium Level 2.8 mmol/L (3.5-5.1) Chloride Level 104 mmol/L (97-110) Carbon Dioxide Level 17 mmol/L (21-31) Anion Gap 12 (5-13) Blood Urea Nitrogen 6 mg/dl (7-20) Creatinine 0.49 mg/dl (0.44-1.00) Est Glomerular Filtrat > 60 mL/min (>60) Rate mL/min Glucose Level 144 mg/dl (70-220) Calcium Level 8.1 mg/dl (8.4-10.2) Total Bilirubin 3.6 mg/dl (0.2-1.3) Direct Bilirubin 0.60 mg/dl (0.00-0.20) Indirect Bilirubin 3.0 mg/dl (0-1.1) Aspartate Amino 90 IU/L (15-46) Transf (AST/SGOT) Alanine 35 IU/L (13-69) Aminotransferase (ALT/SGPT) Alkaline Phosphatase 93 IU/L (42-121) Ammonia 21 umol/l (9-30) Total Protein 6.3 g/dl (6.1-8.1) Albumin 2.7 g/dl (3.3-4.9) Globulin 3.60 g/dl (1.3-3.2) Albumin/Globulin Ratio 0.75 Magnesium Level 1.6 mg/dl (1.7-2.5) Ethyl Alcohol Level < 10.0 mg/dl (0-0) JAE DAS MD Jan 01, 2019 13:00
== END 2019-01-01 13:15 | disposition left against medical advice (07) | DRG 433 ==
LOC: 6WM 21:20
PROVIDERS: ADMIT Internal Medicine; ATTEND Internal Medicine
DX: K70.40 Alcoholic hepatic failure without coma (principal); D61.818 Other pancytopenia; D62 Acute posthemorrhagic anemia; E83.42 Hypomagnesemia; F10.10 Alcohol abuse, uncomplicated; Y90.0 Blood alcohol level of less than 20 mg/100 ml; E87.6 Hypokalemia; K70.31 Alcoholic cirrhosis of liver with ascites; Z53.21 Procedure and treatment not carried out due to patient leaving prior to being seen by health care provider
CPT/HCPCS: 80053; 80307; 82140; 83735; 85025; 86850; 86870; 86900; 86901; 86920; 87081; 92610; J1630; J2060; J3411; J3475; J3480; J7030; J7042

== ENCOUNTER 2019-01-13 11:59 | Emergency (ER) | payer BC ==
[~2019-01-13] VITALS: Ht 170.2 cm; Wt 73.0 kg
[~2019-01-13 11:59] MED LIST changes: +DOCU-144 PO; +FURO20TA3 PO; +GABA100C14 PO; +HYDR-2086 PO; +LACT20SO2 PO; +MAGN400O19 PO; +PENT400T9 PO; +PROP10TA6 PO; +SPIR100T4 PO; +THIA50TA7 PO
[2019-01-13 12:07] VITALS: Ht 170.2 cm; Wt 73.0 kg
[2019-01-13] MEDS ORDERED: morphine 4 MG/ML VIAL IM STA (13:12)
--- NOTE | 2019-01-13 13:13 | ERD ---
ER Documentation Chief Complaint Chief Complaint ABDOMINAL DISTENSION WITH RECENT EDG FOR VARICES, SKIN COLOR PALE/JAUNDICE HPI This is a 39-year-old female who has liver cirrhosis due to alcohol abuse and she is here for therapeutic paracentesis. The patient was being followed at an outside physician in hospital for upper GI bleed a few weeks ago and was discovered to have varices that were banded. She says that she is having gradual abdominal swelling and is in need of a therapeutic paracentesis only. Denies abdominal pain melena or vomiting blood ROS All systems reviewed and are negative except as per history of present illness. Medications Home Meds Active Scripts Ferrous Sulfate* (Ferrous Sulfate*) 325 Mg Tabec, 325 MG PO TID for 30 Days, TAB Prov:JAE DAS MD 11/29/16 Pantoprazole* (Protonix*) 40 Mg Tablet.dr, 60 MG PO BID, #60 TAB Prov:JAE DAS MD 11/29/16 Reported Medications Lorazepam* (Lorazepam*) 0.5 Mg Tablet, 0.5 MG PO BID PRN for ANXIETY, TAB 01/13/19 Hydrocodone Bit-Acetaminophen* (Vicodin*) 5-300 Tab, 1 TAB PO Q4H PRN for PAIN, TAB 01/01/19 Propranolol Hcl* (Propranolol Hcl*) 10 Mg Tablet, 10 MG PO Q12, TAB 01/01/19 Spironolactone* (Spironolactone*) 100 Mg Tablet, 100 MG PO DAILY, TAB 01/01/19 Thiamine* (Thiamine*) 50 Mg Tablet, 100 MG PO DAILY, TAB 01/01/19 Magnesium Hydroxide* (Milk Of Magnesia*) 400 Mg/5 Ml Oral.susp, 30 ML PO DAILY, ML 01/01/19 Gabapentin* (Gabapentin*) 100 Mg Capsule, 200 MG PO TID, #180 CAP 01/01/19 Furosemide* (Furosemide*) 20 Mg Tablet, 20 MG PO DAILY, #60 TAB 01/01/19 Docusate Sodium* (Colace*) 100 Mg Capsule, 100 MG PO BID, #60 CAP 01/01/19 Pentoxifylline* (Pentoxifylline*) 400 Mg Tablet.sa, 400 MG PO TID, TAB 01/01/19 Lactulose* (Lactulose*) 20 Gm/30 Ml Solution, 20 GM PO Q6H for CONSTIPATION, ML 01/01/19 Allergies Allergies: Coded Allergies: ondansetron (Verified Allergy, Intermediate, 01/13/19) PMhx/Soc History of Surgery: No Anesthesia Reaction: No Hx Neurological Disorder: No Hx Respiratory Disorders: No Hx Cardiac Disorders: No Hx Psychiatric Problems: No Hx Miscellaneous Medical Probl: Yes (hepatic encephalopathy,liver failure) Hx Alcohol Use: No Hx Substance Use: No Hx Tobacco Use: No Smoking Status: Never smoker FmHx Family History: No coronary disease Physical Exam Vitals Vital Signs Date Temp Pulse Resp B/P (MAP) Pulse Ox O2 O2 Flow FiO2 Time Delivery Rate 01/13/19 80 18 115/68 100 Room Air 15:31 (84) 01/13/19 98.1 75 16 98/69 (79) 100 Room Air 13:14 01/13/19 98.0 68 18 114/66 99 12:07 (82) Physical Exam Const: Well-developed, well-nourished Head: Atraumatic, normocephalic Eyes: Normal Conjunctiva, PERRLA, EOMI, normal sclera, no nystagmus ENT: Normal External Ears, Nose and Mouth, moist mucus membranes. Neck: Full range of motion. No meningismus, no lymphadenopathy. Resp: Clear to auscultation bilaterally, no wheezing, rhonchi, rales Cardio: Regular rate and rhythm, no murmurs, S1 S2 present Abd: Soft, distended with ascites, nontender normal bowel sounds, no guarding or rebound, no pulsitile abdominal masses or bruits Skin: No petechiae or rashes, no ecchymosis , no maculopapular rash Back: No midline or flank tenderness Ext: No cyanosis, or edema, FROM x 4, normal inspection, neurovascularly intact x 4 Neur: Awake and alert, STR 5/5 x 4, sensation intact x 4, no focal findings, cerebellum intact Psych: Normal Mood and Affect Results 24 hrs Current Medications Medications Dose Sig/Ramya Start Time Status Last (Trade) Ordered Route PRN Stop Time Admin Dose Reason Admin Morphine 4 mg ONCE STAT 01/13/19 DC 01/13/19 Sulfate IM 13:12 13:18 (morphine) 01/13/19 13:14 Lidocaine 5 ml STK-MED 01/13/19 DC 01/13/19 (Xylocaine ONCE .ROUTE 16:06 16:22 1% (Mpf)) 01/13/19 16:07 Procedures/MDM Patient will have a therapeutic paracentesis by interventional radiologist to be discharged home Patient feels much better at this time, and vital signs are normal, symptoms have improved. I did give strict instructions to return to the ED if symptoms continue or worsen, patient will otherwise follow-up with primary care physician. Patient understood instructions and agreed to plan. Disclaimer: Inadvertent spelling and grammatical errors are likely due to EHR/dictation software use and do not reflect on the overall quality of patient care. Also, please note that the electronic time recorded on this note does not necessarily reflect the actual time of the patient encounter. Departure Diagnosis: Primary Impression: Ascites Ascites type: due to alcoholic cirrhosis Qualified Codes: K70.31 - Alcoholic cirrhosis of liver with ascites Condition: Stable DAHLIA FINNEGAN DO Jan 13, 2019 13:13
[2019-01-13] MEDS ORDERED: LORA0.5T PO (13:45)
[2019-01-13] MEDS ORDERED: LIDOCAINE 1% (MPF) 5 ML VIAL ONE (16:06)
[2019-01-13 16:55] VITALS: BP 112/78; PULSE 78; RESP 18
== END 2019-01-13 17:03 | disposition home or self-care (01) ==
LOC: E/R 11:59
DX: K70.31 Alcoholic cirrhosis of liver with ascites (principal)
CPT/HCPCS: 96372; J2270; Z7502; Z7610

== ENCOUNTER 2019-01-18 11:42 | Emergency (ER) | payer BC ==
[~2019-01-18] VITALS: Ht 167.6 cm; Wt 71.1 kg
[~2019-01-18 11:42] MED LIST changes: +LORA0.5T PO
[2019-01-18 11:46] VITALS: Ht 167.6 cm; Wt 71.1 kg
[2019-01-18] MEDS ORDERED: morphine 4 MG/ML VIAL IV STA (12:26)
[2019-01-18] MEDS ORDERED: morphine 4 MG/ML VIAL IM STA (12:29)
[2019-01-18] MEDS ORDERED: SPIR50TA PO (13:14)
[2019-01-18] MEDS ORDERED: FURO20TA3 PO (13:15)
[2019-01-18] MEDS ORDERED: SUCR1TAB56 PO (13:16)
[2019-01-18] MEDS ORDERED: LORA0.5T PO (13:16)
[2019-01-18] MEDS ORDERED: GABA100C14 PO (13:17)
[2019-01-18] MEDS ORDERED: PROP10TA6 PO (13:17)
[2019-01-18] MEDS ORDERED: RIFA550T4 PO (13:18)
[2019-01-18] MEDS ORDERED: THIA50TA7 PO (13:19)
[2019-01-18] MEDS ORDERED: LACT20SO2 PO (13:21)
[2019-01-18] MEDS ORDERED: DOCU-144 PO (13:22)
[2019-01-18] MEDS ORDERED: PENT400T9 PO (13:23)
--- NOTE | 2019-01-18 14:09 | ERD ---
ER Documentation Chief Complaint Chief Complaint Patient here for Paracentesis Hx of Ascites HPI This is a 39-year-old female with a past medical history of cirrhosis with ascites requiring previous paracenteses, esophageal varices complicated by a GI bleed a few weeks ago status post banding, previous hepatic encephalopathy who is now presenting for ascites and desire for paracentesis. The patient endorses abdominal swelling and distention. She knows that it is time for paracentesis when she starts to feel short of breath, which she endorses today. The patient did receive a paracentesis on January 13. She has had blood work completed within the last month with an unremarkable INR. The patient does not endorse any nausea or vomiting. She has not had any black or bloody or tarry stools. The patient denies feeling sick recently. The patient denies fever or chills. The patient has had no headache or vision changes. The patient does not endorse neck or back pain. The patient denies lightheadedness or dizziness. The patient has had no chest pain or trouble breathing. The patient has had no focal deficits. The patient has had no weakness or numbness or tingling to the face or extremities. ROS All systems reviewed and are negative except as per history of present illness. Medications Home Meds Reported Medications Pentoxifylline* (Pentoxifylline*) 400 Mg Tablet.sa, 400 MG PO WITH MEALS, TAB 01/18/19 Docusate Sodium* (Colace*) 100 Mg Capsule, 100 MG PO BID, #60 CAP 01/18/19 Lactulose* (Lactulose*) 20 Gm/30 Ml Solution, 20 GM PO NEEDED for CONSTIPATION, ML 01/18/19 Thiamine* (Thiamine*) 50 Mg Tablet, 100 MG PO DAILY, TAB 01/18/19 Rifaximin* (Xifaxan*) 550 Mg Tablet, 550 MG PO BID, TAB 01/18/19 Gabapentin* (Gabapentin*) 100 Mg Capsule, 200 MG PO TID, #90 CAP 01/18/19 Propranolol Hcl* (Propranolol Hcl*) 10 Mg Tablet, 10 MG PO BID, TAB 01/18/19 Sucralfate* (Carafate*) 1 Gm Tab, 1 GM PO AC MEALS AND BEDTIME, TAB 01/18/19 Lorazepam* (Lorazepam*) 0.5 Mg Tablet, 0.5 MG PO NEEDED PRN for ANXIETY, TAB 01/18/19 Furosemide* (Furosemide*) 20 Mg Tablet, 20 MG PO DAILY, #60 TAB 01/18/19 Spironolactone* (Aldactone*) 50 Mg Tablet, 50 MG PO BID, #60 TAB 01/18/19 Discontinued Reported Medications Lorazepam* (Lorazepam*) 0.5 Mg Tablet, 0.5 MG PO BID PRN for ANXIETY, TAB 01/13/19 Hydrocodone Bit-Acetaminophen* (Vicodin*) 5-300 Tab, 1 TAB PO Q4H PRN for PAIN, TAB 01/01/19 Propranolol Hcl* (Propranolol Hcl*) 10 Mg Tablet, 10 MG PO Q12, TAB 01/01/19 Spironolactone* (Spironolactone*) 100 Mg Tablet, 100 MG PO DAILY, TAB 01/01/19 Thiamine* (Thiamine*) 50 Mg Tablet, 100 MG PO DAILY, TAB 01/01/19 Magnesium Hydroxide* (Milk Of Magnesia*) 400 Mg/5 Ml Oral.susp, 30 ML PO DAILY, ML 01/01/19 Gabapentin* (Gabapentin*) 100 Mg Capsule, 200 MG PO TID, #180 CAP 01/01/19 Furosemide* (Furosemide*) 20 Mg Tablet, 20 MG PO DAILY, #60 TAB 01/01/19 Docusate Sodium* (Colace*) 100 Mg Capsule, 100 MG PO BID, #60 CAP 01/01/19 Pentoxifylline* (Pentoxifylline*) 400 Mg Tablet.sa, 400 MG PO TID, TAB 01/01/19 Lactulose* (Lactulose*) 20 Gm/30 Ml Solution, 20 GM PO Q6H for CONSTIPATION, ML 01/01/19 Discontinued Scripts Ferrous Sulfate* (Ferrous Sulfate*) 325 Mg Tabec, 325 MG PO TID for 30 Days, TAB Prov:JAE DAS MD 11/29/16 Pantoprazole* (Protonix*) 40 Mg Tablet.dr, 60 MG PO BID, #60 TAB Prov:JAE DAS MD 11/29/16 Allergies Allergies: Coded Allergies: ondansetron (Unverified Adverse Reaction, Unknown, nausea, 01/18/19) PMhx/Soc History of Surgery: Yes (Esophageal variceal banding) Anesthesia Reaction: No Hx Neurological Disorder: Yes (Hepatic encephalopathy) Hx Respiratory Disorders: No Hx Cardiac Disorders: No Hx Psychiatric Problems: No Hx Miscellaneous Medical Probl: Yes (Cirrhosis with ascites, esophageal varices, GI bleeding) Hx Alcohol Use: No Hx Substance Use: No Hx Tobacco Use: No Smoking Status: Never smoker FmHx Family History: No diabetes Physical Exam Vitals Vital Signs Date Temp Pulse Resp B/P (MAP) Pulse Ox O2 O2 Flow FiO2 Time Delivery Rate 01/18/19 98.7 125 20 139/63 100 11:46 (88) Physical Exam Const: No apparent distress, well-developed, well-nourished Head: Normocephalic, Atraumatic Eyes: Normal Conjunctiva. No conjunctival pallor. Extraocular movements grossly intact. Pupils equal, round and reactive to light ENT: Normal External Ears, Nose and Mouth. Neck: Full range of motion. No meningismus. Resp: Clear to auscultation bilaterally, No wheezes, rales or rhonchi Cardio: Regular rate and rhythm. No murmurs, rubs or gallops Abd: Soft, non tender. Abdominal distention with ascites. Normal bowel sounds Skin: No petechiae or rashes Back: No midline tenderness. No CVA tenderness Ext: No cyanosis. Bilateral nonpitting edema. Neur: Awake and alert, oriented 4. Cranial nerves intact. No facial droop. Normal strength, sensation and coordination. Psych: Normal Mood and Affect Results 24 hrs Current Medications Medications Dose Sig/Ramya Start Time Status Last (Trade) Ordered Route PRN Stop Time Admin Dose Reason Admin Morphine 4 mg ONCE STAT 01/18/19 DC Sulfate IV 12:26 (morphine) 01/18/19 12:30 Morphine 4 mg ONCE STAT 01/18/19 DC 01/18/19 Sulfate IM 12:29 12:32 (morphine) 01/18/19 12:30 Procedures/MDM MDM The patient's presentation warrants further investigation. Previous medical records, if available, were reviewed. LABS No significant coagulopathy noted on blood test within the past 30 days, no indication for repeat based on her process. TREATMENT/DISPOSITION The patient presents with abdominal ascites likely secondary to cirrhosis. Patient does not exhibit any signs or symptoms concerning for complications of cirrhosis such as GI bleed, hepatic encephalopathy or spontaneous bacterial peritonitis. There is no indication currently for diagnostic paracentesis. The patient will benefit from therapeutic paracentesis by interventional radiology. This will be completed in interventional radiology, limited to 5 L. The patient was observed in the emergency department to evaluate for any possible hemodynamic compromise or post-paracentesis circulatory dysfunction secondary to fluid shifts. If the patient remains hemodynamically stable, the patient can be safely discharged home with close primary care and hepatology follow-up. The patient was given a dose of morphine in the emergency department for pain control. DISCHARGE I anticipate discharge after the paracentesis. The paracentesis is currently being performed in interventional radiology. The patient was signed out to Dr. Pan at 2 PM on January 18, 2019 pending completion of this procedure. I do feel that the patient will be stable for discharge. The patient will require instruction for follow-up with a primary care physician in 1-3 days. The patient will be given strict precautions with which to return to the emergency department. Prescriptions: None Disclaimer: Inadvertent spelling and grammatical errors are likely due to EHR/dictation software use and do not reflect on the overall quality of patient care. Note that the electronic time recorded on this note does not necessarily reflect the actual time of the patient encounter. Departure Diagnosis: Primary Impression: Alcoholic cirrhosis of liver with ascites Additional Impressions: Abdominal distension Status post abdominal paracentesis Condition: Stable SAL SHELTON MD Jan 18, 2019 14:09
[2019-01-18] MEDS ORDERED: LIDOCAINE 1% (MPF) 5 ML VIAL ONE (14:39)
[2019-01-18 14:47] VITALS: BP 132/57; PULSE 76; RESP 16
== END 2019-01-18 14:47 | disposition home or self-care (01) ==
LOC: E/R 11:42
DX: K70.31 Alcoholic cirrhosis of liver with ascites (principal); Z98.890 Other specified postprocedural states
CPT/HCPCS: 96372; J2270; Z7502; Z7610

== ENCOUNTER 2019-01-20 14:20 | Emergency (ER) | payer BC, OTHER ==
[~2019-01-20] VITALS: Wt 65.9 kg
[~2019-01-20 14:20] MED LIST changes: -FER325 PO; -HYDR-2086 PO; -MAGN400O19 PO; -PANT40TA3 PO; +RIFA550T4 PO; -SPIR100T4 PO; +SPIR50TA PO; +SUCR1TAB56 PO
[2019-01-20 14:27] VITALS: BP 126/73; PULSE 133; RESP 18
--- NOTE | 2019-01-20 18:23 | ERD ---
ER Documentation Chief Complaint Chief Complaint HERE FOR PARACENTHESIS HPI 39-year-old woman with a history of cirrhosis and recurrent ascites presents with increasing abdominal distention and is requesting paracentesis today, she just had paracentesis about 3 days ago. She also has a history of esophageal varices and prior hepatic encephalopathy but denies any recent confusion, no fevers or chills, no vomiting or diarrhea, no blood per rectum or melena. ROS All systems reviewed and are negative except as per history of present illness. Medications Home Meds Reported Medications Pentoxifylline* (Pentoxifylline*) 400 Mg Tablet.sa, 400 MG PO WITH MEALS, TAB 01/18/19 Docusate Sodium* (Colace*) 100 Mg Capsule, 100 MG PO BID, #60 CAP 01/18/19 Lactulose* (Lactulose*) 20 Gm/30 Ml Solution, 20 GM PO NEEDED for CONSTIPATION, ML 01/18/19 Thiamine* (Thiamine*) 50 Mg Tablet, 100 MG PO DAILY, TAB 01/18/19 Rifaximin* (Xifaxan*) 550 Mg Tablet, 550 MG PO BID, TAB 01/18/19 Gabapentin* (Gabapentin*) 100 Mg Capsule, 200 MG PO TID, #90 CAP 01/18/19 Propranolol Hcl* (Propranolol Hcl*) 10 Mg Tablet, 10 MG PO BID, TAB 01/18/19 Sucralfate* (Carafate*) 1 Gm Tab, 1 GM PO AC MEALS AND BEDTIME, TAB 01/18/19 Lorazepam* (Lorazepam*) 0.5 Mg Tablet, 0.5 MG PO NEEDED PRN for ANXIETY, TAB 01/18/19 Furosemide* (Furosemide*) 20 Mg Tablet, 20 MG PO DAILY, #60 TAB 01/18/19 Spironolactone* (Aldactone*) 50 Mg Tablet, 50 MG PO BID, #60 TAB 01/18/19 Discontinued Reported Medications Lorazepam* (Lorazepam*) 0.5 Mg Tablet, 0.5 MG PO BID PRN for ANXIETY, TAB 01/13/19 Hydrocodone Bit-Acetaminophen* (Vicodin*) 5-300 Tab, 1 TAB PO Q4H PRN for PAIN, TAB 01/01/19 Propranolol Hcl* (Propranolol Hcl*) 10 Mg Tablet, 10 MG PO Q12, TAB 01/01/19 Spironolactone* (Spironolactone*) 100 Mg Tablet, 100 MG PO DAILY, TAB 01/01/19 Thiamine* (Thiamine*) 50 Mg Tablet, 100 MG PO DAILY, TAB 01/01/19 Magnesium Hydroxide* (Milk Of Magnesia*) 400 Mg/5 Ml Oral.susp, 30 ML PO DAILY, ML 01/01/19 Gabapentin* (Gabapentin*) 100 Mg Capsule, 200 MG PO TID, #180 CAP 01/01/19 Furosemide* (Furosemide*) 20 Mg Tablet, 20 MG PO DAILY, #60 TAB 01/01/19 Docusate Sodium* (Colace*) 100 Mg Capsule, 100 MG PO BID, #60 CAP 01/01/19 Pentoxifylline* (Pentoxifylline*) 400 Mg Tablet.sa, 400 MG PO TID, TAB 01/01/19 Lactulose* (Lactulose*) 20 Gm/30 Ml Solution, 20 GM PO Q6H for CONSTIPATION, ML 01/01/19 Discontinued Scripts Ferrous Sulfate* (Ferrous Sulfate*) 325 Mg Tabec, 325 MG PO TID for 30 Days, TAB Prov:JAE DAS MD 11/29/16 Pantoprazole* (Protonix*) 40 Mg Tablet.dr, 60 MG PO BID, #60 TAB Prov:JAE DAS MD 11/29/16 Allergies Allergies: Coded Allergies: ondansetron (Unverified Adverse Reaction, Unknown, nausea, 01/18/19) PMhx/Soc Cirrhosis and recurrent ascites History of Surgery: Yes (Esophageal variceal banding) Anesthesia Reaction: No Hx Neurological Disorder: Yes (Hepatic encephalopathy) Hx Respiratory Disorders: No Hx Cardiac Disorders: No Hx Psychiatric Problems: No Hx Miscellaneous Medical Probl: Yes (Cirrhosis with ascites, esophageal varices, GI bleeding) Hx Alcohol Use: Yes (WINE ) Hx Substance Use: No Hx Tobacco Use: No Smoking Status: Never smoker FmHx Family History: No diabetes Physical Exam Vitals Vital Signs Date Temp Pulse Resp B/P (MAP) Pulse Ox O2 O2 Flow FiO2 Time Delivery Rate 01/20/19 99.8 133 18 126/73 99 14:27 (90) Physical Exam GENERAL: Well-developed, well-nourished, well-hydrated, in no apparent distress, looks nontoxic in appearance HEENT: Moist mucous membranes, pink conjunctiva, no cervical spine tenderness or step-off deformities NEURO: Alert and oriented 3, cranial nerves II through XII intact bilaterally, pupils equal round reactive to light, CARDIAC: Tachycardic and regular, no murmurs rubs or gallops LUNGS: Clear bilaterally no wheezing crackles or stridor ABDOMEN: Soft protuberant abdomen, no guarding or rigidity SKIN: Warm and dry to touch, no abrasions, contusions, or hematomas, no lacerations, no ecchymosis, no target lesions, and without ulcers Procedures/MDM I ordered paracentesis to be performed by radiology department, paracentesis was performed on 5 L of clear ascitic fluid was removed. Ascitic fluid analysis has also been ordered results are pending I will follow- up. Patient feels much better vital signs are normal, her tachycardia has improved and she looks well she will be discharged to follow-up with PMD. Patient feels much better at this time, and vital signs are normal, symptoms have improved. I did give strict instructions to return to the ED if symptoms continue or worsen, patient will otherwise follow-up with primary care physician. Patient understood instructions and agreed to plan. Disclaimer: Inadvertent spelling and grammatical errors are likely due to EHR/ dictation software use and do not reflect on the overall quality of patient care. Also, please note that the electronic time recorded on this note does not necessarily reflect the actual time of the patient encounter. Departure Diagnosis: Primary Impression: Liver cirrhosis Hepatic cirrhosis type: alcoholic cirrhosis Ascites presence: with ascites Qualified Codes: K70.31 - Alcoholic cirrhosis of liver with ascites Condition: Good BILLIE MURPHY MD Jan 20, 2019 18:23
[2019-01-20] MEDS ORDERED: LIDOCAINE 1% (MPF) 5 ML VIAL ONE (18:54)
== END 2019-01-20 19:52 | disposition home or self-care (01) ==
LOC: E/R 14:20
DX: K70.31 Alcoholic cirrhosis of liver with ascites (principal)
CPT/HCPCS: 80048; 85025; 86850; 86870; 86900; 86901; Z7502; Z7610

== ENCOUNTER 2019-01-31 11:58 | Emergency (ER) | payer OTHER ==
[~2019-01-31] VITALS: Ht 160 cm; Wt 67.8 kg
[2019-01-31 12:03] VITALS: Ht 160 cm; Wt 67.8 kg
[2019-01-31] MEDS ORDERED: PANTOPRAZOLE IV 80 MG in SOD CHLORIDE 0.9% 100 ML IVPB STA (12:42)
[2019-01-31] MEDS ORDERED: OCTREOTIDE 500 MCG in SOD CHLORIDE 0.9% 49 ML IV STA (12:42)
[2019-01-31] MEDS ORDERED: OCTREOTIDE 50 MCG in SOD CHLORIDE 0.9% 25 ML IVPB STA (12:42)
[2019-01-31] MEDS ORDERED: CEFTRIAXONE 1 GM/50 ML (PMX) 50 ML IVPB STA (12:42)
[2019-01-31] MEDS ORDERED: PANTOPRAZOLE IV 80 MG in SOD CHLORIDE 0.9% 100 ML IV STA (12:42)
[2019-01-31] MEDS ORDERED: morphine 4 MG/ML VIAL IV STA (12:42)
--- NOTE | 2019-01-31 15:07 | ERD ---
ER Documentation Chief Complaint Chief Complaint Cirrhosis last paracentesis x2week, BM black, low h&h last drawn 01/27 HPI 39-year-old female history of alcoholic cirrhosis, still drinks wine who presents to the emergency room complaining of melenic stool, abdominal bloating. Patient had recent hospital stay secondary to GI bleed. The patient has a known history of esophageal varices. She denies any hematemesis. She does note abdominal bloating without any significant pain. No fevers or chills. ROS All systems reviewed and are negative except as per history of present illness. Medications Home Meds Reported Medications Pentoxifylline* (Pentoxifylline*) 400 Mg Tablet.sa, 400 MG PO WITH MEALS, TAB 01/18/19 Docusate Sodium* (Colace*) 100 Mg Capsule, 100 MG PO BID, #60 CAP 01/18/19 Lactulose* (Lactulose*) 20 Gm/30 Ml Solution, 20 GM PO NEEDED for CONSTIPATION, ML 01/18/19 Thiamine* (Thiamine*) 50 Mg Tablet, 100 MG PO DAILY, TAB 01/18/19 Rifaximin* (Xifaxan*) 550 Mg Tablet, 550 MG PO BID, TAB 01/18/19 Gabapentin* (Gabapentin*) 100 Mg Capsule, 200 MG PO TID, #90 CAP 01/18/19 Propranolol Hcl* (Propranolol Hcl*) 10 Mg Tablet, 10 MG PO BID, TAB 01/18/19 Sucralfate* (Carafate*) 1 Gm Tab, 1 GM PO AC MEALS AND BEDTIME, TAB 01/18/19 Lorazepam* (Lorazepam*) 0.5 Mg Tablet, 0.5 MG PO NEEDED PRN for ANXIETY, TAB 01/18/19 Furosemide* (Furosemide*) 20 Mg Tablet, 20 MG PO DAILY, #60 TAB 01/18/19 Spironolactone* (Aldactone*) 50 Mg Tablet, 50 MG PO BID, #60 TAB 01/18/19 Allergies Allergies: Coded Allergies: ondansetron (Unverified Adverse Reaction, Unknown, nausea, 01/18/19) PMhx/Soc History of Surgery: Yes (Esophageal variceal banding) Anesthesia Reaction: No Hx Neurological Disorder: Yes (Hepatic encephalopathy) Hx Respiratory Disorders: No Hx Cardiac Disorders: No Hx Psychiatric Problems: No Hx Miscellaneous Medical Probl: Yes (Cirrhosis with ascites, esophageal varices, GI bleeding) Hx Alcohol Use: Yes (WINE ) Hx Substance Use: No Hx Tobacco Use: No FmHx Family History: No diabetes Physical Exam Vitals Vital Signs Date Temp Pulse Resp B/P (MAP) Pulse Ox O2 O2 Flow FiO2 Time Delivery Rate 01/31/19 Nasal 2 14:17 Cannula 01/31/19 98.2 85 16 113/53 99 12:03 (73) Physical Exam General: Well developed, well nourished, no acute distress Head: Normocephalic, atraumatic. Eyes: Pupils equally reactive, EOM intact ENT: Moist mucous membranes Neck: Supple, no lymphadenopathy Respiratory: Lungs clear bilaterally, no distress Cardiovascular: RRR, no murmurs, rubs, or gallops Abdominal: Soft, protuberant with fluid wave, nontender, no peritonitis : Deferred MSK: No edema, no unilateral swelling, 5/5 strength Neurologic: Alert and oriented, moving all extremities, normal speech, no focal weakness, no cerebellar signs Skin: No rash Psych: Normal mood Result Diagram: 01/31/19 1300 01/31/19 1300 Results 24 hrs Laboratory Tests Test 01/31/19 13:00 White Blood Count 7.1 10^3/ul Red Blood Count 3.37 10^6/ul Hemoglobin 9.8 g/dl Hematocrit 31.3 % Mean Corpuscular Volume 92.9 fl Mean Corpuscular Hemoglobin 29.1 pg Mean Corpuscular Hemoglobin Concent 31.3 g/dl Red Cell Distribution Width 20.9 % Platelet Count 88 10^3/UL Mean Platelet Volume 11.7 fl Immature Granulocytes % 0.600 % Neutrophils % 67.8 % Lymphocytes % 18.2 % Monocytes % 12.3 % Eosinophils % 0.7 % Basophils % 0.4 % Nucleated Red Blood Cells % 0.0 /100WBC Immature Granulocytes # 0.040 10^3/ul Neutrophils # 4.8 10^3/ul Lymphocytes # 1.3 10^3/ul Monocytes # 0.9 10^3/ul Eosinophils # 0.1 10^3/ul Basophils # 0.0 10^3/ul Nucleated Red Blood Cells # 0.0 10^3/ul Prothrombin Time 18.7 Sec Prothrombin Time Ratio 1.5 INR International Normalized Ratio 1.55 Activated Partial Thromboplast Time 36.4 Sec Sodium Level 136 mmol/L Potassium Level 4.0 mmol/L Chloride Level 103 mmol/L Carbon Dioxide Level 24 mmol/L Anion Gap 9 Blood Urea Nitrogen 20 mg/dl Creatinine 1.09 mg/dl Est Glomerular Filtrat Rate mL/min 56 mL/min Glucose Level 89 mg/dl Calcium Level 8.0 mg/dl Total Bilirubin 1.7 mg/dl Direct Bilirubin 0.00 mg/dl Indirect Bilirubin 1.7 mg/dl Aspartate Amino Transf (AST/SGOT) 88 IU/L Alanine Aminotransferase (ALT/SGPT) 40 IU/L Alkaline Phosphatase 233 IU/L Troponin I 0.019 ng/ml Total Protein 7.1 g/dl Albumin 2.9 g/dl Globulin 4.20 g/dl Albumin/Globulin Ratio 0.69 Current Medications Medications Dose Sig/Ramya Start Time Status Last (Trade) Ordered Route PRN Stop Time Admin Dose Reason Admin Pantoprazole 100 ml @ ONCE STAT 01/31/19 DC 80 mg/Sodium 400 mls/hr IVPB 12:42 Chloride 01/31/19 12:56 Pantoprazole 100 ml @ ONCE STAT 01/31/19 80 mg/Sodium 10 mls/hr IV 12:42 Chloride 01/31/19 22:41 Octreotide 26 ml @ Q16M STAT 01/31/19 DC Acetate 50 100 mls/hr IVPB 12:42 mcg/ Sodium 01/31/19 12:57 Chloride Octreotide 50 ml @ 5 ONCE STAT 01/31/19 Acetate 500 mls/hr IV 12:42 mcg/ Sodium 01/31/19 22:41 Chloride Ceftriaxone 50 ml @ ONCE STAT 01/31/19 DC 01/31/19 Sodium 100 mls/hr IVPB 12:42 13:18 01/31/19 13:11 Morphine 4 mg ONCE STAT 01/31/19 DC 01/31/19 Sulfate IV 12:42 13:18 (morphine) 01/31/19 12:45 Procedures/MDM EKG, MONITORS, & DIAGNOSTIC IMAGING: Paracentesis done by interventional radiology LAB INTERPRETATION: I reviewed the laboratory testing and it shows hemoglobin greater than 7 MEDICAL DECISION MAKING: Patient presents with melanotic stool in the setting of cirrhosis, known history of esophageal varices. The patient has high risk for upper GI hemorrhage. For this reason I would strongly recommend hospitalization for serial hemoglobin, GI consultation. Patient has a benign abdominal exam other than fluid wave. Therapeutic paracentesis has been ordered. Cell studies that will be sent but low concern for SBP. ER COURSE: * Patient was started on PPI bolus and drip, octreotide bolus and drip and empiric antibiotics in the setting of cirrhotic GI bleeding * Hemoglobin and blood pressure is stable. * Patient will be admitted for further management. CONSULTATION: None DISPOSITION PLAN: Accepting care team and consultations: I discussed the current laboratory data, diagnostic imaging and emergency care provided. Admitting team: Ronald Admitting team indication: Insurance directed, unstable given high risk patient Departure Diagnosis: Primary Impression: Upper GI hemorrhage Additional Impressions: Alcoholic cirrhosis Ascites presence: with ascites Qualified Codes: K70.31 - Alcoholic cirrhosis of liver with ascites Anemia Anemia type: unspecified type Qualified Codes: D64.9 - Anemia, unspecified Condition: Stable BLADIMIR HERNANDEZ MD Jan 31, 2019 15:07
[2019-01-31] MEDS ORDERED: ACETAMINOPHEN 325 MG TAB PO PRN (15:30)
[2019-01-31] MEDS ORDERED: METOCLOPRAMIDE 10 MG INJ IV ONE (17:00)
[2019-01-31 17:10] VITALS: BP 103/56; PULSE 78; RESP 16
[2019-01-31] MEDS ORDERED: DEXTROSE 5%-0.45% NACL 1,000 ML IV SCH (17:35)
[2019-01-31] MEDS ORDERED: ONDANSETRON 4 MG INJ IV PRN (18:00)
[2019-01-31] MEDS ORDERED: PHYTONADIONE 10 MG/ML INJ IM ONE (18:00)
[2019-01-31] MEDS ORDERED: morphine 2 MG INJ IV PRN (18:00)
[2019-01-31] MEDS ORDERED: NACL 0.9% 3 ML SYG IV SCH (18:00)
--- NOTE | 2019-01-31 19:42 | HP ---
DATE OF ADMISSION: 01/31/2019 CHIEF COMPLAINT: Abdominal pain and melena. HISTORY OF PRESENT ILLNESS: A 39-year-old female with a long history of alcohol abuse and alcoholic cirrhosis who presented to emergency room with complaint of abdominal pain and distention. The patie nt reports having melena. She has a known history of esophageal varices. Last paracentesis was abou t 2 weeks prior to admission. She denies hematemesis. No bright red blood per rectum. The patient underwent a paracentesis while in the emergency room. ____ liters of fluid was removed. Hemoglobin was found to be 9.8 with a platelet count of 88,000. INR was elevated at 1.5. Albumin was 2.9. PAST MEDICAL HISTORY: 1. Alcoholic cirrhosis. 2. History of recurrent ascites. 3. History of GI bleed due to vices. MEDICATIONS PRIOR TO ADMISSION: 1. Rifaximin. 2. Pentoxifylline. 3. Propranolol. 4. Spironolactone. 5. Gabapentin. 6. Lorazepam. 7. Lasix. 8. Lactulose. SOCIAL HISTORY: The patient has a long history of alcohol abuse and continues to drink wine. PHYSICAL EXAMINATION: GENERAL: Well-developed, well-nourished female who is in no apparent distress. VITAL SIGNS: Stable. She is afebrile. HEENT: Extraocular muscles intact. Pupils are equal and reactive to light bilaterally. Sclerae are anicteric. Oropharynx is clear and moist. NECK: Supple, no JVD, no carotid bruits. LUNGS: Clear to auscultation bilaterally. CARDIAC: Regular rate and rhythm. No murmurs, rubs or gallops. ABDOMEN: Soft, distended, nontender, normoactive bowel sounds. EXTREMITIES: Mild edema. NEUROLOGICAL: Nonfocal. ASSESSMENT: 1. A 39-year-old female presenting with melena. 2. Anemia. 3. Alcoholic cirrhosis. 4. Ascites, status post paracentesis. 5. Malnutrition of moderate degree. 6. History of hepatic encephalopathy. PLAN: 1. Admit to telemetry. 2. IV Protonix and IV octreotide. 3. N.p.o. 4. Gentle hydration. 5. GI consultation was requested. 6. Monitor hemoglobin. Dictated By: NCIOLE DURAN/OLINDA Conf#: [id number] DID#: [id number] CC: VENESSA DHILLON MD;*EndCC*
--- NOTE | 2019-02-01 10:25 | DS ---
DATE OF ADMISSION: 01/31/2019 DATE OF DISCHARGE: 01/31/2019 DISCHARGE DIAGNOSES: 1. A 39-year-old female with melena. 2. Anemia. 3. Alcoholic cirrhosis. 4. Ascites, status post paracentesis. 5. Malnutrition of moderate degree. 6. History of hepatic encephalopathy. HOSPITAL COURSE: A 39-year-old female with a long history of alcohol abuse, presented with complaint of abdominal pain and melena. The patient had ascites and underwent paracentesis while in the emerg ency room. The plan was for her to be admitted and undergo a GI evaluation. However, the patient el oped from the emergency room before being admitted to the hospital. Dictated By: NICOLE DOUGHERTY MD SK/NTS Conf#: [id number] DID#: [id number] CC: BLADIMIR HERNANDEZ MD;*EndCC*
== END 2019-01-31 17:45 | disposition left against medical advice (07) ==
LOC: E/R 11:58 → CANRESERV 16:13 → EDBEDREQSVC 16:42 → E/R 17:45 → CANBEDREQ 20:49
DX: K92.2 Gastrointestinal hemorrhage, unspecified (principal); D64.9 Anemia, unspecified
CPT/HCPCS: 80053; 84484; 85025; 85610; 85730; 86850; 86870; 86900; 86901; 87070; 87102; 87116; 89051; 93005; C9113; J0696; J2270; J2354; J2765; J7042; Z7610; 36415; 96374; 96375

== ENCOUNTER 2019-04-03 14:27 | Observation (INO) | payer OTHER ==
[~2019-04-03] VITALS: Ht 157.5 cm; Wt 67.6 kg
[~2019-04-03 14:27] MED LIST changes: -DOCU-144 PO; -SUCR1TAB56 PO; -THIA50TA7 PO
[2019-04-03] MEDS: HYDROCODONE/APAP (10/325) TAB PO ONE ×2 (15:37→15:43)
[2019-04-03] MEDS ORDERED: PROMETHAZINE 25 MG TAB PO ONE (16:30)
[2019-04-03] MEDS ORDERED: morphine 10 MG INJ IM ONE (16:30)
[2019-04-03] MEDS ORDERED: PANT40TA4 PO (17:50)
[2019-04-03] MEDS ORDERED: SPIR100T4 PO (17:50)
[2019-04-03] MEDS ORDERED: OXYC-438 PO (17:51)
[2019-04-03] MEDS ORDERED: DAILY VITE PO (17:53)
[2019-04-03] MEDS ORDERED: LIDOCAINE 1% (MPF) 5 ML VIAL ONE (18:46)
[2019-04-03] MEDS ORDERED: OXYC-279 PO (19:15)
--- NOTE | 2019-04-03 19:19 | ERD ---
ER Documentation Chief Complaint Chief Complaint Pt abd swollen from ascities, drained 2 days ago HPI This [id number] female who is here for therapeutic paracentesis. The patient has a history of alcoholic cirrhosis with ascites. The patient says she is still drinking wine from time to time. The patient says she was admitted at an outside hospital last week and was discharged 2 days ago. The patient says she had a blood transfusion due to anemia. She says she is having no melena or no vomiting blood. She said her abdominal cavity is swelling again she wants to drain. She had drained 2 days ago she states ROS All systems reviewed and are negative except as per history of present illness. Medications Home Meds Active Scripts Oxycodone HCl/Acetaminophen (Percocet 5-325 mg Tablet) 1 Each Tablet, 1 EACH PO Q4 for pain, #10 TAB Prov:DAHLIA FINNEGAN DO 04/03/19 Reported Medications [Daily-Neisha Tab] No Conflict Check, 1 TAB PO DAILY 04/03/19 Oxycodone HCl/Acetaminophen (Oxycodone-Acetaminophen 5-325) 1 Each Tablet, 1 EACH PO NEEDED, TAB 04/03/19 Pantoprazole* (Pantoprazole*) 40 Mg Tablet.dr, 40 MG PO AC BREAKFAST, TAB 04/03/19 Spironolactone* (Spironolactone*) 100 Mg Tablet, 100 MG PO DAILY, TAB 04/03/19 Pentoxifylline* (Pentoxifylline*) 400 Mg Tablet.sa, 400 MG PO WITH MEALS, TAB 01/18/19 Lactulose* (Lactulose*) 20 Gm/30 Ml Solution, 20 GM PO NEEDED for CONSTIPATION, ML 01/18/19 Rifaximin* (Xifaxan*) 550 Mg Tablet, 550 MG PO BID, TAB 01/18/19 Gabapentin* (Gabapentin*) 100 Mg Capsule, 200 MG PO TID, #90 CAP 01/18/19 Propranolol Hcl* (Propranolol Hcl*) 10 Mg Tablet, 10 MG PO BID, TAB 01/18/19 Lorazepam* (Lorazepam*) 0.5 Mg Tablet, 0.5 MG PO NEEDED PRN for ANXIETY, TAB 01/18/19 Furosemide* (Furosemide*) 20 Mg Tablet, 20 MG PO DAILY, #60 TAB 01/18/19 Discontinued Reported Medications Spironolactone* (Aldactone*) 50 Mg Tablet, 50 MG PO BID, #60 TAB 01/18/19 Allergies Allergies: Coded Allergies: ondansetron (Unverified Adverse Reaction, Unknown, nausea, 04/03/19) PMhx/Soc History of Surgery: Yes (Esophageal variceal banding, cholecystectomy, cs x3) Anesthesia Reaction: No Hx Neurological Disorder: Yes (Hepatic encephalopathy) Hx Respiratory Disorders: No Hx Cardiac Disorders: No Hx Psychiatric Problems: No Hx Miscellaneous Medical Probl: Yes (Cirrhosis with ascites, esophageal varices, GI bleeding) Hx Alcohol Use: Yes (WINE. used to drink heavily in past) Hx Substance Use: No Hx Tobacco Use: No Smoking Status: Never smoker FmHx Family History: No coronary disease Physical Exam Vitals Vital Signs Date Temp Pulse Resp B/P (MAP) Pulse Ox O2 O2 Flow FiO2 Time Delivery Rate 04/03/19 98.0 77 16 160/97 100 Room Air 17:31 (118) 04/03/19 98.0 86 16 122/80 100 Room Air 16:15 (94) 04/03/19 98.0 88 16 124/81 100 Room Air 15:24 (95) 04/03/19 98.9 95 16 127/68 99 14:33 (87) Physical Exam Const: Well-developed, well-nourished Head: Atraumatic, normocephalic Eyes: Normal Conjunctiva, PERRLA, EOMI, normal sclera, no nystagmus ENT: Normal External Ears, Nose and Mouth, moist mucus membranes. Neck: Full range of motion. No meningismus, no lymphadenopathy. Resp: Clear to auscultation bilaterally, no wheezing, rhonchi, rales Cardio: Regular rate and rhythm, no murmurs, S1 S2 present Abd: Soft, distended abdomen with ascites, nontender, ecchymosis to the left side of the abdomen. Normal bowel sounds, no guarding or rebound, no pulsitile abdominal masses or bruits Skin: No petechiae or rashes, no ecchymosis , no maculopapular rash Back: No midline or flank tenderness Ext: No cyanosis, or edema, FROM x 4, normal inspection, neurovascularly intact x 4 Neur: Awake and alert, STR 5/5 x 4, sensation intact x 4, no focal findings, cerebellum intact Psych: Normal Mood and Affect Result Diagram: 04/03/19 1726 04/03/19 1726 Results 24 hrs Laboratory Tests Test 04/03/19 17:26 White Blood Count 7.5 10^3/ul Red Blood Count 3.35 10^6/ul Hemoglobin 10.6 g/dl Hematocrit 33.5 % Mean Corpuscular Volume 100.0 fl Mean Corpuscular Hemoglobin 31.6 pg Mean Corpuscular Hemoglobin Concent 31.6 g/dl Red Cell Distribution Width 20.9 % Platelet Count 90 10^3/UL Mean Platelet Volume 11.9 fl Immature Granulocytes % 0.400 % Neutrophils % 75.6 % Lymphocytes % 16.0 % Monocytes % 6.8 % Eosinophils % 0.4 % Basophils % 0.8 % Nucleated Red Blood Cells % 0.0 /100WBC Immature Granulocytes # 0.030 10^3/ul Neutrophils # 5.6 10^3/ul Lymphocytes # 1.2 10^3/ul Monocytes # 0.5 10^3/ul Eosinophils # 0.0 10^3/ul Basophils # 0.1 10^3/ul Nucleated Red Blood Cells # 0.0 10^3/ul Prothrombin Time 16.4 Sec Prothrombin Time Ratio 1.3 INR International Normalized Ratio 1.31 Activated Partial Thromboplast Time 39.4 Sec Sodium Level 136 mmol/L Potassium Level 4.3 mmol/L Chloride Level 103 mmol/L Carbon Dioxide Level 22 mmol/L Anion Gap 11 Blood Urea Nitrogen 23 mg/dl Creatinine 0.92 mg/dl Est Glomerular Filtrat Rate mL/min > 60 mL/min Glucose Level 90 mg/dl Calcium Level 8.5 mg/dl Total Bilirubin 2.7 mg/dl Direct Bilirubin 0.00 mg/dl Indirect Bilirubin 2.7 mg/dl Aspartate Amino Transf (AST/SGOT) 115 IU/L Alanine Aminotransferase (ALT/SGPT) 34 IU/L Alkaline Phosphatase 245 IU/L Total Protein 7.8 g/dl Albumin 3.2 g/dl Globulin 4.60 g/dl Albumin/Globulin Ratio 0.69 Current Medications Medications Dose Sig/Ramya Start Time Status Last (Trade) Ordered Route PRN Stop Time Admin Dose Reason Admin 1 tab ONCE ONCE 04/03/19 DC Acetaminophen PO 16:00 / 04/03/19 16:01 Hydrocodone Bitart ([place] (10/325)) Morphine 6 mg ONCE ONCE 04/03/19 DC 04/03/19 Sulfate IM 16:30 16:11 (morphine) 04/03/19 16:31 Promethazine 25 mg ONCE ONCE 04/03/19 DC 04/03/19 HCl PO 16:30 16:12 (Phenergan) 04/03/19 16:31 Lidocaine 5 ml STK-MED 04/03/19 DC (Xylocaine ONCE .ROUTE 18:46 1% (Mpf)) 04/03/19 18:47 Procedures/MDM Patient is going to have a therapeutic paracentesis and be discharged home. The patient is complaining of pain and she is asking for a pain medication that starts with the letter D. Told her I was going to give her a pain medication p.o. and that I would get her therapeutic paracentesis as quickly as possible, however, she began getting belligerent with staff asking to speak with the charge nurse saying that the staff here is racist and that is why we are not giving her pain medication The charge nurse spoke with the patient and came to me asking me to give her 1 dose of IM morphine for pain, which I did Departure Diagnosis: Primary Impression: Ascites Ascites type: other type Qualified Codes: R18.8 - Other ascites Condition: Stable Patient Instructions: Ascites DAHLIA FINNEGAN DO Apr 03, 2019 19:19
[2019-04-03] MEDS ORDERED: morphine 4 MG/ML VIAL IV STA (20:57)
[2019-04-03] MEDS ORDERED: DIPHENHYDRAMINE 50 MG INJ IV ONE (23:30)
[2019-04-04] VITALS (7 sets, daily range): BP systolic 98–124; BP diastolic 56–80; PULSE 79–126; RESP 16–20; Ht 157.5 cm; Wt 67.6 kg
[2019-04-04] MEDS ORDERED: METOCLOPRAMIDE 10 MG INJ IV PRN (03:00)
[2019-04-04] MEDS ORDERED: ACETAMINOPHEN 325 MG TAB PO PRN (03:00)
[2019-04-04] MEDS: morphine 4 MG/ML VIAL IV PRN ×4 (03:42→16:38)
[2019-04-04] MEDS: LACTULOSE 30ML CUP PO SCH ×2 (05:42→16:26)
[2019-04-04] MEDS: LORAZEPAM 0.5 MG TAB PO PRN ×2 (05:42→23:24)
[2019-04-04] MEDS: PANTOPRAZOLE (EC) 40 MG TAB PO SCH (06:42)
[2019-04-04] MEDS: PENTOXIFYLLINE (SR) 400 MG TAB PO SCH ×3 (07:35→17:34)
[2019-04-04] MEDS: SPIRONOLACTONE 50 MG TAB PO SCH (08:49)
[2019-04-04] MEDS: MULTIVITAMINS THERAPEUTIC TAB PO SCH (08:49)
[2019-04-04] MEDS: GABAPENTIN 100 MG CAP PO SCH ×3 (08:49→20:52)
[2019-04-04] MEDS: RIFAXIMIN 550 MG TAB PO SCH ×2 (08:49→20:52)
[2019-04-04] MEDS: PROPRANOLOL 10 MG TAB PO SCH ×2 (08:55→20:52)
[2019-04-04] MEDS ORDERED: DAILY VITE PO SCH (09:00)
[2019-04-04] MEDS: FUROSEMIDE 20 MG TAB PO SCH (11:16)
--- NOTE | 2019-04-04 11:52 | QN ---
Documentation Comment H&P dict a/p 1. gi: complication of paracentesis, plan repeat tap alcoholic cirrhosis ?tips vs tunnelled catheter, await gi SERGE PARIS MD Apr 04, 2019 11:52
[2019-04-04] MEDS: ALBUMIN HUMAN 25% 100 ML IV SCH ×2 (12:00→13:00)
[2019-04-04] MEDS: DIPHENHYDRAMINE 25 MG CAP PO PRN ×2 (12:15→19:05)
--- NOTE | 2019-04-04 13:36 | HP ---
DATE OF ADMISSION: 04/04/2019 CHIEF COMPLAINT: Abdominal pain. HISTORY OF PRESENT ILLNESS: Ms. Lamb presents to the emergency room at [facility] with ab dominal pain and distention related to tense ascites. She has a long history of alcoholic cirrhosis and has been having ever increasing need for paracentesis and using these more frequently. She state s that she was recently in the hospital at [facility] and was discharged several days ago, comes t o the hospital here at [facility] for paracentesis. Undergoes this procedure while in the e mergency room. Five liters of fluid were removed. However, following this procedure there is ongoing bleeding and fluid leakage from the left side of the abdomen, where a paracentesis was performed. PAST MEDICAL HISTORY: Significant for alcoholic cirrhosis. MEDICATIONS AN OUTPATIENT: Include: 1. Rifaximin. 2. Pentoxifylline. 3. Propranolol. 4. Aldactone. 5. Neurontin. 6. Ativan. 7. Percocet. 8. Lasix. 9. Lactulose. 10. Protonix. 11. Multivitamin. ALLERGIES: ZOFRAN. SOCIAL HISTORY: The patient now lives at home in [place] with the assistance of her family friend. S he is independent of activities of daily living. Denies tobacco, alcohol, or illicit drug use. FAMILY HISTORY: Noncontributory. REVIEW OF SYSTEMS: Five systems reviewed and found not to be revealing. PHYSICAL EXAMINATION: VITAL SIGNS: Blood pressure 106/64, pulse rate 83, respirations 18, temperature is 98.8. GENERAL: Pleasant young woman, no acute distress. Alert and oriented x3. HEENT: Normocephalic, atraumatic without evident scleral icterus, perioral cyanosis. Mucous membran es are moist. NECK: Soft and supple without masses. No evidence of jugular venous distention or carotid bruits. CHEST: Clear to auscultation and percussion bilaterally. HEART: Regular rate and rhythm, S1-S2, no added sounds. ABDOMEN: Soft, nontender, distended with ascites. There is a bag attached to the left upper quadran t which is draining a small amount of serous ascitic fluid. There is a large hematoma in the abdomin al wall, centered around this and tracking down to the umbilicus. EXTREMITIES: Without clubbing, cyanosis or edema. SKIN: Without rashes. NEUROLOGIC: Grossly intact. LABORATORY STUDIES: Reveal a hemoglobin 10.6 g/dL, white count of 7500, platelets of 90,000. INR is 1.3, sodium 136, potassium 4.3, chloride 103, bicarbonate 22, BUN 23, creatinine 0.92, glucose is 90 . Liver function tests remarkable and AST 115, ALT 34, total bilirubin 2.7, alkaline phosphatase [address] scan of the abdomen and pelvis done without contrast demonstrate cirrhosis with splenomegaly, l arge amount of ascites. ASSESSMENT AND PLAN: 1. Gastrointestinal: The patient with complication of paracentesis and ongoing fluid leakage from t he site. We will plan to repeat paracentesis with albumin support in attempt to reduce intra-abdomin al pressure and allow the original site to close. 2. Alcoholic cirrhosis fairly well compensated, though there is some concern on the interview of hep atic encephalopathy. Continue to monitor. The patient with a refractory ascites. Await GI evaluati on, may be a good candidate for either tunnel peritoneal catheter for repeated drainage at home versu s a TIPS procedure. Dictated By: SERGE PARIS MD RER/NTS Conf#: [id number] DID#: [id number] CC: JUAN BILLINGSLEY;*EndCC*
[2019-04-04] MEDS ORDERED: BISACODYL 10 MG SUPP PR PRN (19:00)
[2019-04-04] MEDS ORDERED: BISACODYL 10 MG SUPP PR ONE (19:00)
[2019-04-04] MEDS: morphine 10 MG INJ IV PRN (20:54)
[2019-04-05] MEDS: morphine 10 MG INJ IV PRN ×3 (01:11→10:26)
[2019-04-05] MEDS: LACTULOSE 30ML CUP PO SCH (02:13)
[2019-04-05] MEDS: DIPHENHYDRAMINE 25 MG CAP PO PRN (02:14)
[2019-04-05 02:48] VITALS: BP 109/75; PULSE 97; RESP 20
[2019-04-05] MEDS: PANTOPRAZOLE (EC) 40 MG TAB PO SCH (06:32)
[2019-04-05] MEDS: LORAZEPAM 0.5 MG TAB PO PRN (07:47)
[2019-04-05 08:00] VITALS: BP 98/57; PULSE 100; RESP 19
[2019-04-05] MEDS: MULTIVITAMINS THERAPEUTIC TAB PO SCH (09:01)
[2019-04-05] MEDS: GABAPENTIN 100 MG CAP PO SCH (09:01)
[2019-04-05] MEDS: SPIRONOLACTONE 50 MG TAB PO SCH (09:01)
[2019-04-05] MEDS: RIFAXIMIN 550 MG TAB PO SCH (09:01)
[2019-04-05] MEDS: PENTOXIFYLLINE (SR) 400 MG TAB PO SCH (09:02)
[2019-04-05] MEDS: FUROSEMIDE 20 MG TAB PO SCH (09:02)
--- NOTE | 2019-04-05 13:27 | DS ---
Date/Time of Note Date/Time of Note DATE: 04/05/19 TIME: 13:25 Discharge Summary Admission/Discharge Info Admit Date/Time Apr 04, 2019 at 02:47 Discharge Date/Time 04/05/19 Discharge Diagnosis 1. cirrhosis 2. ascties, s/p paracentesis, complicated by injection site hematoma and leak Patient Condition: Fair Hospital Course patient admit with ascites and abdominal distention, she underwent paracentesis by radiology which was complicated by hematoma and leaking of ascites fluid at the procedure site. She was recommmedned for a repeat paracentsis to reduce the leak, but this was not able to be done for technical reasons. Patient guadalupeen became upset and felt that no efforts were being made on her behalf and she left the hospital against advice Home Meds Active Scripts Oxycodone HCl/Acetaminophen (Percocet 5-325 mg Tablet) 1 Each Tablet, 1 EACH PO Q4 for pain, #10 TAB Prov:DAHLIA FINNEGAN DO 04/03/19 Reported Medications [Daily-Neisha Tab] No Conflict Check, 1 TAB PO DAILY 04/03/19 Oxycodone HCl/Acetaminophen (Oxycodone-Acetaminophen 5-325) 1 Each Tablet, 1 EACH PO NEEDED, TAB 04/03/19 Pantoprazole* (Pantoprazole*) 40 Mg Tablet.dr, 40 MG PO AC BREAKFAST, TAB 04/03/19 Spironolactone* (Spironolactone*) 100 Mg Tablet, 100 MG PO DAILY, TAB 04/03/19 Pentoxifylline* (Pentoxifylline*) 400 Mg Tablet.sa, 400 MG PO WITH MEALS, TAB 01/18/19 Lactulose* (Lactulose*) 20 Gm/30 Ml Solution, 20 GM PO NEEDED for CONSTIPATION, ML 01/18/19 Rifaximin* (Xifaxan*) 550 Mg Tablet, 550 MG PO BID, TAB 01/18/19 Gabapentin* (Gabapentin*) 100 Mg Capsule, 200 MG PO TID, #90 CAP 01/18/19 Propranolol Hcl* (Propranolol Hcl*) 10 Mg Tablet, 10 MG PO BID, TAB 01/18/19 Lorazepam* (Lorazepam*) 0.5 Mg Tablet, 0.5 MG PO NEEDED PRN for ANXIETY, TAB 01/18/19 Furosemide* (Furosemide*) 20 Mg Tablet, 20 MG PO DAILY, #60 TAB 01/18/19 Discontinued Reported Medications Spironolactone* (Aldactone*) 50 Mg Tablet, 50 MG PO BID, #60 TAB 01/18/19 Primary Care Provider Not On Staff Doctor Pending Labs Laboratory Tests Test 04/05/19 05:32 White Blood Count 6.8 10^3/ul (4.8-10.8) Red Blood Count 3.16 10^6/ul (4.20-5.40) Hemoglobin 10.1 g/dl (12.0-16.0) Hematocrit 31.9 % (37.0-47.0) Mean Corpuscular Volume 100.9 fl (82.0-101.0) Mean Corpuscular Hemoglobin 32.0 pg (29.0-33.0) Mean Corpuscular Hemoglobin Concent 31.7 g/dl (32.0-37.0) Red Cell Distribution Width 19.9 % (11.5-14.5) Platelet Count 78 10^3/UL (140-415) Mean Platelet Volume 12.2 fl (7.4-10.4) Immature Granulocytes % 0.600 % (0.001-0.429) Neutrophils % 76.1 % (39.0-77.0) Lymphocytes % 12.6 % (15.0-51.0) Monocytes % 8.0 % (0.0-11.0) Eosinophils % 2.1 % (0.0-7.0) Basophils % 0.6 % (0.0-2.0) Nucleated Red Blood Cells % 0.0 /100WBC (0.0-0.0) Immature Granulocytes # 0.040 10^3/ul (0.0-0.031) Neutrophils # 5.2 10^3/ul (1.6-7.5) Lymphocytes # 0.9 10^3/ul (0.8-2.9) Monocytes # 0.5 10^3/ul (0.3-0.9) Eosinophils # 0.1 10^3/ul (0.0-0.5) Basophils # 0.0 10^3/ul (0.0-0.1) Nucleated Red Blood Cells # 0.0 10^3/ul (0.0-0.0) Sodium Level 133 mmol/L (135-144) Potassium Level 4.3 mmol/L (3.5-5.1) Chloride Level 103 mmol/L (97-110) Carbon Dioxide Level 26 mmol/L (21-31) Anion Gap 4 (5-13) Blood Urea Nitrogen 19 mg/dl (7-20) Creatinine 0.81 mg/dl (0.44-1.00) Est Glomerular Filtrat Rate mL/min > 60 mL/min (>60) Glucose Level 112 mg/dl (70-220) Calcium Level 8.6 mg/dl (8.4-10.2) Total Bilirubin 2.9 mg/dl (0.2-1.3) Direct Bilirubin 0.00 mg/dl (0.00-0.20) Indirect Bilirubin 2.9 mg/dl (0-1.1) Aspartate Amino Transf (AST/SGOT) 104 IU/L (15-46) Alanine Aminotransferase (ALT/SGPT) 31 IU/L (13-69) Alkaline Phosphatase 160 IU/L (42-121) Total Protein 6.6 g/dl (6.1-8.1) Albumin 2.6 g/dl (3.3-4.9) Globulin 4.00 g/dl (1.3-3.2) Albumin/Globulin Ratio 0.65 SERGE PARIS MD Apr 05, 2019 13:27
--- NOTE | 2019-04-05 14:08 | QN ---
Documentation Comment As Physician Advisor I have reviewed the chart and have determined that as of today, this patient continues to receive medically necessary care required for the diagnosis and treatment of illness or injury. There has been no unreasonable delay in the rendering of medically necessary services, and this medically necessary care requires a length of stay greater than two midnights. Additional information gained during the stay now suggests this patient should have been classified as an inpatient at the time of admission, and I will change the status to inpatient to reflect that medical judgment. Besides the notes from the medical providers, the following information was used in this determination: Alcoholic cirrhosis, Leaking paracentesis site. Patient left AMA after two midnights already passed. Had two drainage procedures attempted and still required further GI evaluation and care. I attempted to reach Dr. Hoffmann to discuss but no answer at [place] #. Please call me at [phone] if questions arise. FELICIA GAN MD Apr 05, 2019 14:08
--- NOTE | 2019-04-07 14:58 | RADRPT ---
Vent Rate: 97 bpm RR Interval: 620 msec AR Interval: 138 msec QRS Duration: 92 msec QT Interval: 356 msec QTC Interval: 452 msec P-R-T [place]: 66 - 20 - 42 degrees Sinus rhythm...normal P axis, V-rate 50- 99 Electronically Signed By: Javier Clifton
== END 2019-04-05 12:15 | disposition home or self-care (01) ==
LOC: E/R 14:27 → PP2 04-04 02:47
PROVIDERS: ADMIT Legal Medicine; ATTEND Legal Medicine
DX: K70.31 Alcoholic cirrhosis of liver with ascites (principal)
CPT/HCPCS: 49083; 74176; 76705; 80053; 85025; 85610; 85730; 87081; 93005; 96372; 96374; 96375; J1200; J2270; P9047; Z7500; Z7502; Z7610; G0378

== ENCOUNTER 2019-04-05 19:18 | Observation (INO) | payer OTHER ==
[~2019-04-05] VITALS: Ht 157.5 cm; Wt 67.2 kg
[~2019-04-05 19:18] MED LIST changes: +DAILY VITE PO; +OXYC-279 PO; +OXYC-438 PO; +PANT40TA4 PO; +SPIR100T4 PO
[2019-04-05] MEDS ORDERED: morphine 4 MG/ML VIAL IV STA (21:00)
[2019-04-05] MEDS ORDERED: SOD CHLORIDE 0.9% 500 ML IV STA (21:00)
[2019-04-06] MEDS ORDERED: ACETAMINOPHEN 325 MG TAB PO PRN ×2 (00:30→01:30)
--- NOTE | 2019-04-06 00:44 | ERD ---
ER Documentation Chief Complaint Chief Complaint READMIT FOR PARACENTESIS/SURGICAL PROC, DISTENDED ABDOMEN HPI Is a 39-year-old female comes back in recurrent with recurrent ascites with paracentesis leak from previous time. Patient signed AMA earlier today. Upon arrival except she is continued to leak and wants further evaluation management. ROS All systems reviewed and are negative except as per history of present illness. Medications Home Meds Active Scripts Oxycodone HCl/Acetaminophen (Percocet 5-325 mg Tablet) 1 Each Tablet, 1 EACH PO Q4 for pain, #10 TAB Prov:LASHANDASHAYNEANDIDAHLIA BerthaLeland DO 04/03/19 Reported Medications [Daily-Neisha Tab] No Conflict Check, 1 TAB PO DAILY 04/03/19 Oxycodone HCl/Acetaminophen (Oxycodone-Acetaminophen 5-325) 1 Each Tablet, 1 EACH PO NEEDED, TAB 04/03/19 Pantoprazole* (Pantoprazole*) 40 Mg Tablet.dr, 40 MG PO AC BREAKFAST, TAB 04/03/19 Spironolactone* (Spironolactone*) 100 Mg Tablet, 100 MG PO DAILY, TAB 04/03/19 Pentoxifylline* (Pentoxifylline*) 400 Mg Tablet.sa, 400 MG PO WITH MEALS, TAB 01/18/19 Lactulose* (Lactulose*) 20 Gm/30 Ml Solution, 20 GM PO NEEDED for CONSTIPATION, ML 01/18/19 Rifaximin* (Xifaxan*) 550 Mg Tablet, 550 MG PO BID, TAB 01/18/19 Gabapentin* (Gabapentin*) 100 Mg Capsule, 200 MG PO TID, #90 CAP 01/18/19 Propranolol Hcl* (Propranolol Hcl*) 10 Mg Tablet, 10 MG PO BID, TAB 01/18/19 Lorazepam* (Lorazepam*) 0.5 Mg Tablet, 0.5 MG PO NEEDED PRN for ANXIETY, TAB 01/18/19 Furosemide* (Furosemide*) 20 Mg Tablet, 20 MG PO DAILY, #60 TAB 01/18/19 Discontinued Reported Medications Spironolactone* (Aldactone*) 50 Mg Tablet, 50 MG PO BID, #60 TAB 01/18/19 Allergies Allergies: Coded Allergies: ondansetron (Unverified Adverse Reaction, Unknown, nausea, 04/03/19) PMhx/Soc History of Surgery: Yes (cholecystectomy, 2011; C-sections x 4; breast implants 2008) Anesthesia Reaction: No Hx Neurological Disorder: No Hx Respiratory Disorders: No Hx Cardiac Disorders: No Hx Psychiatric Problems: Yes (Insomnia) Hx Miscellaneous Medical Probl: No Hx Alcohol Use: Yes (04/03/19 wine 1 glass ) Hx Substance Use: Yes (alcohol ) Hx Tobacco Use: No Smoking Status: Never smoker Physical Exam Vitals Vital Signs Date Temp Pulse Resp B/P (MAP) Pulse Ox O2 O2 Flow FiO2 Time Delivery Rate 04/05/19 98.9 100 20 126/64 100 Room Air 23:58 (84) 04/05/19 98.9 89 22 100/65 100 Room Air 20:56 (77) 04/05/19 98.9 103 22 97/55 (69) 100 19:21 Physical Exam Const: No acute distress Head: Atraumatic Eyes: Normal Conjunctiva ENT: Normal External Ears, Nose and Mouth. Neck: Full range of motion. No meningismus. Resp: Clear to auscultation bilaterally Cardio: Regular rate and rhythm, no murmurs Abd: Moderate ascites. Hematoma noted on left lower abdominal wall which seems consistent with recent discharge Skin: No petechiae or rashes Back: No midline or flank tenderness Ext: No cyanosis, or edema Neur: Awake and alert Psych: Normal Mood and Affect Result Diagram: 04/05/19220104/05/192201 Results 24 hrs Laboratory Tests Test 04/05/19 22:02 White Blood Count 7.2 10^3/ul Red Blood Count 2.68 10^6/ul Hemoglobin 8.9 g/dl Hematocrit 27.6 % Mean Corpuscular Volume 103.0 fl Mean Corpuscular Hemoglobin 33.2 pg Mean Corpuscular Hemoglobin Concent 32.2 g/dl Red Cell Distribution Width 19.9 % Platelet Count 105 10^3/UL Mean Platelet Volume 13.1 fl Immature Granulocytes % 0.600 % Neutrophils % 80.0 % Lymphocytes % 11.3 % Monocytes % 6.9 % Eosinophils % 0.8 % Basophils % 0.4 % Nucleated Red Blood Cells % 0.4 /100WBC Immature Granulocytes # 0.040 10^3/ul Neutrophils # 5.7 10^3/ul Lymphocytes # 0.8 10^3/ul Monocytes # 0.5 10^3/ul Eosinophils # 0.1 10^3/ul Basophils # 0.0 10^3/ul Nucleated Red Blood Cells # 0.0 10^3/ul Prothrombin Time 19.1 Sec Prothrombin Time Ratio 1.5 INR International Normalized Ratio 1.60 Activated Partial Thromboplast Time 38.3 Sec Sodium Level 133 mmol/L Potassium Level 4.5 mmol/L Chloride Level 106 mmol/L Carbon Dioxide Level 20 mmol/L Anion Gap 7 Blood Urea Nitrogen 15 mg/dl Creatinine 0.78 mg/dl Est Glomerular Filtrat Rate mL/min > 60 mL/min Glucose Level 89 mg/dl Calcium Level 7.1 mg/dl Total Bilirubin 1.8 mg/dl Direct Bilirubin 0.00 mg/dl Indirect Bilirubin 1.8 mg/dl Aspartate Amino Transf (AST/SGOT) 106 IU/L Alanine Aminotransferase (ALT/SGPT) 24 IU/L Alkaline Phosphatase 154 IU/L Total Protein 6.3 g/dl Albumin 2.5 g/dl Globulin 3.80 g/dl Albumin/Globulin Ratio 0.65 Lipase 14 U/L Current Medications Medications Dose Sig/Ramya Start Time Status Last (Trade) Ordered Route PRN Stop Time Admin Dose Reason Admin Sodium 500 ml @ Q1H STAT 04/05/19 DC 04/05/19 Chloride 500 mls/hr IV 21:00 21:19 04/05/19 21:59 Morphine 4 mg ONCE STAT 04/05/19 DC 04/05/19 Sulfate IV 21:00 21:19 (morphine) 04/05/19 21:03 650 mg ER BRIDGE 04/06/19 Acetaminophen PRN PO 00:30 (Tylenol .MILD PAIN 04/07/19 00:29 Tab) 1-3 OR TEMP Procedures/MDM Discussed case with Dr. Aayush Alanis. Dr. Alanis can accept patient to service. Discussed results with patient at bedside Departure Diagnosis: Primary Impression: Abdominal pain Abdominal location: unspecified location Qualified Codes: R10.9 - Unspecified abdominal pain Condition: Stable JUANITO JUSTINLeland Apr 06, 2019 00:44
[2019-04-06 01:25] VITALS: BP 113/57; PULSE 104; RESP 16
[2019-04-06 01:30] VITALS: Ht 157.5 cm; Wt 67.2 kg
[2019-04-06] MEDS ORDERED: LORAZEPAM 0.5 MG TAB PO PRN (01:30)
[2019-04-06] MEDS ORDERED: METOCLOPRAMIDE 10 MG INJ IV PRN (01:30)
[2019-04-06] MEDS ORDERED: ALBUMIN HUMAN 25% 100 ML IV SCH (02:00)
[2019-04-06] MEDS: morphine 4 MG/ML VIAL IV PRN ×2 (02:31→06:39)
[2019-04-06] MEDS: DIPHENHYDRAMINE 25 MG CAP PO PRN ×2 (02:36→09:06)
[2019-04-06 02:37] VITALS: BP 119/56; PULSE 107
[2019-04-06] MEDS ORDERED: PANTOPRAZOLE (EC) 40 MG TAB PO ONE (05:57)
[2019-04-06] MEDS ORDERED: PANTOPRAZOLE (EC) 40 MG TAB PO SCH (07:00)
[2019-04-06 08:00] VITALS: BP 101/52; PULSE 107; RESP 18
[2019-04-06] MEDS ORDERED: PENTOXIFYLLINE (SR) 400 MG TAB PO SCH (08:00)
[2019-04-06] MEDS ORDERED: PROPRANOLOL 10 MG TAB PO SCH (09:00)
[2019-04-06] MEDS ORDERED: GABAPENTIN 100 MG CAP PO SCH (09:00)
[2019-04-06] MEDS ORDERED: MULTIVITAMINS THERAPEUTIC TAB PO SCH (09:00)
[2019-04-06] MEDS ORDERED: RIFAXIMIN 550 MG TAB PO SCH (09:00)
[2019-04-06] MEDS ORDERED: FUROSEMIDE 20 MG TAB PO SCH (09:00)
[2019-04-06] MEDS ORDERED: LACTULOSE 30ML CUP PO SCH (09:00)
[2019-04-06] MEDS ORDERED: DAILY VITE PO SCH (09:00)
[2019-04-06] MEDS ORDERED: SPIRONOLACTONE 50 MG TAB PO SCH (09:00)
[2019-04-06] MEDS ORDERED: [UNRECOGNIZED DRUG - OTHER] XX SCH (10:00)
--- NOTE | 2019-04-06 11:42 | PDOCDIS ---
Discharge Instructions CONDITION [id number] Patient Condition: [id number] Good HOME CARE INSTRUCTIONS: [id number] Diet Instructions: [id number] FOLLOW UP/APPOINTMENTS Follow-up Plan pcp 1 week NICOLE DOUGHERTY MD Apr 06, 2019 11:42
--- NOTE | 2019-04-06 13:06 | HP ---
DATE OF ADMISSION: 04/06/2019 CHIEF COMPLAINT: Leakage from the paracentesis site. HISTORY OF PRESENT ILLNESS: A 39-year-old female with end-stage alcoholic liver disease and recurren t ascites returned to emergency room with complaint of persistent leakage from the left side of the l ower abdomen at the site of previous paracentesis. The patient was hospitalized and underwent parace ntesis by radiology the day prior to admission. A hematoma and leakage of ascitic fluid was noted. A repeat paracentesis was recommended. However, patient signed out against medical advice. The harrison ent denies any abdominal pain, nausea, or vomiting. There have been no fevers or chills. The patien t continues to drink alcohol. She had wine following discharge from the hospital. PAST MEDICAL HISTORY: 1. Endstage alcoholic liver disease. 2. History of recurrent ascites. 3. History of hepatic encephalopathy. MEDICATIONS PRIOR TO ADMISSION: 1. Percocet. 2. Pantoprazole. 3. Aldactone. 4. Pentoxifylline. 5. Lactulose. 6. Rifaximin. 7. Gabapentin. 8. Propranolol. 9. Lorazepam. 10. Lasix. SOCIAL HISTORY: Patient lives at home. She continues to drink alcohol. She has a long history of h eavy alcohol abuse. PHYSICAL EXAMINATION: GENERAL: Well-developed, well-nourished female who is in no apparent distress. VITAL SIGNS: Stable. She is afebrile. HEENT: Extraocular muscles intact. Pupils equal and reactive to light bilaterally. Sclerae are ani cteric. Oropharynx is clear and moist. NECK: Supple, no JVD, no carotid bruits. LUNGS: Clear to auscultation bilaterally. CARDIAC: Regular rate and rhythm. No murmurs or gallops. ABDOMEN: Soft, moderately distended and mildly tender. Bag noted on the left lower quadrant with cl ear yellow ascitic fluid. EXTREMITIES: No clubbing, cyanosis, or edema. NEUROLOGICAL: Nonfocal. ASSESSMENT: 1. A 39-year-old female with recurrent ascites. 2. Leakage of peritoneal fluid due to previous paracentesis. 3. End-stage alcoholic liver disease. 4. Persistent alcohol abuse. PLAN: 1. Place in med/surg observation. 2. Resume home medications. 3. Repeat ultrasound-guided paracentesis. 4. GI consultation was requested. Dictated By: NICOLE DOUGHERTY MD SK/NTS Conf#: [id number] [facility]#: [id number] CC: SERGE PARIS MD;*End*
== END 2019-04-06 14:00 | disposition home health service (06) ==
LOC: E/R 19:18 → 5EC 04-06 00:11
PROVIDERS: ADMIT Legal Medicine; ATTEND Legal Medicine
DX: R18.8 Other ascites (principal); K72.90 Hepatic failure, unspecified without coma; F10.10 Alcohol abuse, uncomplicated
CPT/HCPCS: 36415; 76705; 80053; 83690; 85025; 85610; 85730; 96374; J2270; J7040; Z7500; Z7502; Z7610; 99217; G0378

== ENCOUNTER 2019-08-19 12:19 | Emergency (ER) | payer MEDICARE, OTHER ==
[~2019-08-19] VITALS: Ht 165.1 cm; Wt 72.4 kg
[~2019-08-19 12:19] MED LIST changes: +PENT400T12 PO; -PENT400T9 PO; -SPIR50TA PO
[2019-08-19 12:23] VITALS: BP 112/60; PULSE 98; RESP 22; Ht 165.1 cm; Wt 72.4 kg
[2019-08-19] MEDS ORDERED: OXYCODONE/ACETAMINOPHEN (5/325) TAB PO ONE (15:30)
== END 2019-08-19 16:12 | disposition home or self-care (01) ==
LOC: E/R 12:19
DX: R18.8 Other ascites (principal); D64.9 Anemia, unspecified; D69.6 Thrombocytopenia, unspecified
CPT/HCPCS: 80048; 84702; 85025; 85610; 85730